=== PATIENT | female | born 1965 | race Caucasian/White ===

== ENCOUNTER 2017-11-20 20:15 | Inpatient (IN) | payer MEDICARE ==
[~2017-11-20] VITALS: Ht 162.6 cm; Wt 67.6 kg
[2017-11-20] VITALS (12 sets, daily range): BP systolic 111–148; BP diastolic 70–77; PULSE 60–99; RESP 18–22; TEMP 97.2–98.8; O2SAT 90–100
[~2017-11-20 20:15] MED LIST: KEPP1000 PO; LACO100 PO; LEVE500 PO; PHEN100 PO; PROZ40CA PO; TRAZ50TA4 PO
[2017-11-20] MEDS ORDERED: PROPOFOL 200 MG/20 ML AMP IV ONE ×3 (20:30→23:00)
[2017-11-20] MEDS ORDERED: LORazepam 2 MG/ML VIAL ONE (20:33)
[2017-11-20] MEDS ORDERED: KETAMINE HCL 500 MG/5 ML VIAL IV PUSH ONE (20:45)
[2017-11-20] MEDS ORDERED: LORazepam 2 MG/ML VIAL IV PUSH ONE (20:45)
--- NOTE | 2017-11-20 20:51 | RADRPT ---
EXAM DATE/TIME: 11/20/2017 20:38 [facility] COMPARISON: No previous studies available for comparison. INDICATIONS : Post intubation. MEDICAL HISTORY : Unobtainable SURGICAL HISTORY : Unobtainable ENCOUNTER: Initial ACUITY: 1 day PAIN SCORE: Non-responsive. LOCATION: Bilateral chest FINDINGS: Trace left base atelectasis. Lungs otherwise clear. No large effusion seen. No pneumothorax. Endotracheal tube tip is approximately 3.5 cm above the shelli. Nasogastric tube courses into the sto mach. Normal heart size. CONCLUSION: Appropriately positioned endotracheal tube and nasogastric tube. Trace left base atelectasis. Billy Slade MD on November 20, 2017 at 20:48 Board Certified Radiologist. This report was verified electronically.
[2017-11-20 21:20] LABS: AUTOMATED NEUTROPHIL # 7.3 TH/MM3 (1.8-7.7); BASOPHIL % 0.5 % (0.0-2.0); EOSINOPHIL # 0.1 TH/MM3 (0-0.4); EOSINOPHIL % 1.5 % (0.0-4.0); HEMOGLOBIN 14.4 GM/DL (11.6-15.3); LYMPH % 16.6 % (9.0-44.0); LYMPHOCYTE # 1.6 TH/MM3 (1.0-4.8); MEAN CELL VOLUME 85.8 FL (80.0-100.0); MEAN CORPUSCULAR HEMOGLOBIN 28.7 PG (27.0-34.0); MEAN CORPUSCULAR HGB CONC 33.5 % (32.0-36.0); MEAN PLATELET VOLUME 8.7 FL (7.0-11.0); MONO % 5.9 % (0.0-8.0); MONOCYTE # 0.6 TH/MM3 (0-0.9); NEUT % 75.5 % (16.0-70.0); PLATELET COUNT 278 TH/MM3 (150-450); RED BLOOD COUNT 5.01 MIL/MM3 (4.00-5.30); RED CELL DISTRIBUTION WIDTH 13.4 % (11.6-17.2); WHITE BLOOD COUNT 9.7 TH/MM3 (4.0-11.0)
[2017-11-20 21:29] LABS: AST (GOT) 21 U/L (15-37); BICARBONATE 20.4 MEQ/L (21.0-32.0); BLOOD UREA NITROGEN 21 MG/DL (7-18); CALCIUM 9.4 MG/DL (8.5-10.1); CHLORIDE 108 MEQ/L (98-107); GLOMERULAR FILTRATION RATE 58 ML/MIN (>89); GLUCOSE,RANDOM 89 MG/DL (74-106); SODIUM (NA) 141 MEQ/L (136-145)
[2017-11-20 21:30] LABS: ALT (GPT) 22 U/L (10-53)
[2017-11-20] MEDS: fentaNYL DRIP 250 ML IV PRN (21:33)
[2017-11-20 21:34] LABS: ALKALINE PHOSPHATASE 116 U/L (45-117); TOTAL BILIRUBIN ADULT 0.2 MG/DL (0.2-1.0); TOTAL PROTEIN 7.7 GM/DL (6.4-8.2); TROPONIN I LESS THAN 0.02 NG/ML (0.02-0.05)
[2017-11-20] MEDS ORDERED: PROPOFOL 500 MG/50 ML INJ 50 ML ONE (21:56)
[2017-11-20] MEDS: HEPARIN SODIUM - SQ 10,000 UNITS/ML VIAL SQ SCH (22:00)
--- NOTE | 2017-11-20 22:07 | PD ---
HPI Chief Complaint: Seizure Time Seen by Provider: 20:28 Travel History International Travel<30 days: No Contact w/Intl Traveler<30days: No Traveled to known affect area: No History of Present Illness HPI Patient is a 52-year-old female with a MR diagnosis as well as seizure apparently she has had nonstop seizures paramedics found her to be in repeated facial spasm and arm twitching which is her focal seizure like presentation she is given 2 of Versed en route did not break her seizure she is given 2 more en route and then they called for a second dose of Versed and then a third she arrives she is sedated but yet still having facial twitching and arm twitching. She is still seizing and I set up to intubate him prone a propofol drip to relax her mind from discharging she is unable to give an history of present illness or ROS due to being in sedated and MR and actively seizing PFSH Past Medical History ?: Not Social History Tobacco Use: No Allergies-Medications (Allergen,Severity, Reaction): Coded Allergies: Unable to Assess (Verified Allergy, Unknown, 11/20/17) Reported Meds & Prescriptions Reported Meds & Active Scripts Active Reported Vimpat (Lacosamide) 200 Mg Tab 200 Mg PO BID Trazodone (Trazodone HCl) 50 Mg Tab 50 Mg PO HS Keppra (Levetiracetam) 500 Mg Tab 1,500 Mg HS Keppra (Levetiracetam) 500 Mg Tab 500 Mg BID Prozac (Fluoxetine HCl) 40 Mg Cap 40 Mg PO DAILY Review of Systems ROS Limitations: Altered Mental Status, Speech Impaired, Other: (patient is been sedated en route as well as actively seizing focal) Except as stated in HPI: all other systems reviewed are Neg Neurologic: Positive: Seizures Physical Exam Narrative GENERAL: Patient has 100% nonrebreather on her face and she is facial twitching lipsmacking seizure-like activity as well as her right arm is in a tonic-clonic activity SKIN: Warm and dry. HEAD: Atraumatic. Normocephalic. EYES: Pupils equal and round. No scleral icterus. No injection or drainage. ENT: No nasal bleeding or discharge. Mucous membranes pink and moist. NECK: Trachea midline. No JVD. CARDIOVASCULAR: Regular rate and rhythm. Slightly tachycardic at 112 RESPIRATORY: No accessory muscle use. Clear to auscultation. Breath sounds equal bilaterally. GASTROINTESTINAL: Abdomen soft, non-tender, nondistended. Hepatic and splenic margins not palpable. MUSCULOSKELETAL: Extremities without clubbing, cyanosis, or edema. No obvious deformities. NEUROLOGICAL: Patient is sedated and still having focal discharge facial smacking muscles lipsmacking and her right arm is tonic-clonic activity is not open her eyes to command appears to be actively continuing to seize in spite of Versed focal seizures Psychological patient is obtunded most likely due to sedation as well as actively focal season Data Data Last Documented VS Orders Orders Propofol 200 Mg/20 Ml Inj (Diprivan 200 (11/20/17 20:30) Electrocardiogram (11/20/17 20:28) Complete Blood Count With Diff (11/20/17 20:28) Comprehensive Metabolic Panel (11/20/17 20:28) Troponin I (11/20/17 20:28) Lipase (11/20/17 20:28) Urinalysis - C+S If Indicated (11/20/17 20:28) Chest, Single Ap (11/20/17 20:28) Type And Screen (11/20/17 20:28) Drug Screen, Random Urine (11/20/17 20:28) Alcohol (Ethanol) (11/20/17 20:28) Lorazepam Inj (Ativan Inj) (11/20/17 20:33) Lorazepam Inj (Ativan Inj) (11/20/17 20:45) Ketamine Inj (Ketalar Inj) (11/20/17 20:45) Fentanyl Inj (Fentanyl Inj) (11/20/17 20:45) Resp Ventilation- Pressure (11/20/17 ) Lactic Acid (11/20/17 20:47) Urinary Catheter Management BOLIVAR.Q8H (11/20/17 20:47) Blood Culture (11/20/17 20:47) Fentanyl Drip (Fentanyl Drip) (11/20/17 21:15) Admit Order (Ed Use Only) (11/20/17 21:38) Magnesium (Mg) (11/20/17 20:25) Phosphorus (Po4) (11/20/17 20:25) Labs Laboratory Tests Test 11/20/17 20:25 11/20/17 20:40 White Blood Count 9.7 TH/MM3 Red Blood Count 5.01 MIL/MM3 Hemoglobin 14.4 GM/DL Hematocrit 43.0 % Mean Corpuscular Volume 85.8 FL Mean Corpuscular Hemoglobin 28.7 PG Mean Corpuscular Hemoglobin Concent 33.5 % Red Cell Distribution Width 13.4 % Platelet Count 278 TH/MM3 Mean Platelet Volume 8.7 FL Neutrophils (%) (Auto) 75.5 % Lymphocytes (%) (Auto) 16.6 % Monocytes (%) (Auto) 5.9 % Eosinophils (%) (Auto) 1.5 % Basophils (%) (Auto) 0.5 % Neutrophils # (Auto) 7.3 TH/MM3 Lymphocytes # (Auto) 1.6 TH/MM3 Monocytes # (Auto) 0.6 TH/MM3 Eosinophils # (Auto) 0.1 TH/MM3 Basophils # (Auto) 0.0 TH/MM3 CBC Comment DIFF FINAL Differential Comment Blood Urea Nitrogen 21 MG/DL Creatinine 1.00 MG/DL Random Glucose 89 MG/DL Total Protein 7.7 GM/DL Albumin 4.0 GM/DL Calcium Level 9.4 MG/DL Phosphorus Level 4.3 MG/DL Magnesium Level 2.7 MG/DL Alkaline Phosphatase 116 U/L Aspartate Amino Transf (AST/SGOT) 21 U/L Alanine Aminotransferase (ALT/SGPT) 22 U/L Total Bilirubin 0.2 MG/DL Sodium Level 141 MEQ/L Potassium Level 4.0 MEQ/L Chloride Level 108 MEQ/L Carbon Dioxide Level 20.4 MEQ/L Anion Gap 13 MEQ/L Estimat Glomerular Filtration Rate 58 ML/MIN Troponin I LESS THAN 0.02 NG/ML Lipase 131 U/L Ethyl Alcohol Level LESS THAN 3 MG/DL Lactic Acid Level 8.0 mmol/L [facility] Medical Decision Making Medical Screen Exam Complete: Yes Emergency Medical Condition: Yes Differential Diagnosis Patient had been given multiple doses of Versed in the field without breaking the seizures she starts to receive Zarontin arrival diagnosis is static epilepticus versus intermittent focal seizures recurrent versus direct light imbalance versus intoxication versus all the possible seizure risk factors Narrative Course After giving the patient a few moments I see she is seizing still facial tic and arm movement tonic-clonic I feel is necessary to make her brain stop having static epilepticus and so I intubate her with propofol bolus as well as succinylcholine and pass a ET tube without complications and put her on a propofol drip as well as a Versed drip reestablishing that she is no longer having any focal seizures and that her static epilepticus has been broken with the propofol and fentanyl and she is admitted to Dr. Sexton in the ICU Critical Care Narrative Critical care time is 30 minutes of breaking her seizures intubating her and getting her admitted on the appropriate medication drips to the ICU Procedures Procedure Narrative Procedure note is rapid sequence intubation I bolused the patient 50 mg of propofol for induction and then with succinylcholine 100 mg pushed for paralytic. I am able to easily pass an ET tube 7.5 I use direct visualization through the cords without complication patient is placed 100% FiO2 on the ventilator direct visualization confirmed tube placement x-rays done patient is admitted to the ICU Diagnosis Primary Impression: Status epilepticus Admitting Information Admitting Physician Requests: Chan Paulson MD Nov 20, 2017 22:07
[2017-11-20] MEDS ORDERED: SODIUM CHLOR 0.9% 1000 ML INJ 1,000 ML IV ONE (22:15)
[2017-11-20] MEDS ORDERED: ONDANSETRON HCL 4 MG/2 ML VIAL IV PUSH PRN (22:15)
[2017-11-20] MEDS ORDERED: LORazepam 2 MG/ML VIAL IV PUSH PRN (22:15)
[2017-11-20] MEDS ORDERED: MAGNESIUM HYDROXIDE SUSP 30 ML CUP PO PRN (22:15)
[2017-11-20] MEDS ORDERED: LACTULOSE SYRUP 20 GM/30 ML CUP PO PRN (22:15)
[2017-11-20] MEDS ORDERED: ACETAMINOPHEN 325 MG TAB PO PRN (22:15)
[2017-11-20] MEDS ORDERED: BISACODYL 10 MG SUPP RECTAL PRN (22:15)
[2017-11-20] MEDS ORDERED: MISCELLANEOUS NURSING INFORMATION XX SCH (22:15)
[2017-11-20] MEDS ORDERED: SODIUM CHLORIDE 0.9% FLUSH 10 ML FLUSH IV FLUSH PRN (22:15)
[2017-11-20] MEDS ORDERED: SENNOSIDES 8.6 MG TAB PO PRN (22:15)
[2017-11-20] MEDS ORDERED: CHLORHEXIDINE GLUCONATE 2 % 1 PACK (2 CLOTHS) TOP PRN (22:15)
--- NOTE | 2017-11-20 22:19 | HHI.HP ---
HPI Service Critical Care Medicine Primary Care Physician Unknown Admission Diagnosis status epilepticus Diagnosis: Travel History International Travel<30 Days: No Contact w/Intl Traveler <30 Da: No Traveled to Known Affected Are: No History of Present Illness 52-year-old female with a diagnosis of MR as well as seizure apparently she was not taking her seizure medications and started seizing. Per paramedics report she had nonstop seizures such as repeated facial spasm and arm twitching which is her focal seizure like presentation. She was given 2 of Versed en route did not break her seizure and was given 2 more en route and then they called for a second dose of Versed and then a third. She arrived to emergency department sedated but yet still having facial twitching and arm twitching and was intubated by ED attending for an airway protection. Review of Systems ROS Unobtainable patient sedated and intubated Past Family Social History Allergies: Coded Allergies: Unable to Assess (Verified Allergy, Unknown, 11/20/17) Past Medical History Mental retardation Seizure disorder Past Surgical History Unobtainable Reported Medications Reported Meds & Active Scripts Active Reported Vimpat (Lacosamide) 200 Mg Tab 200 Mg PO BID Trazodone (Trazodone HCl) 50 Mg Tab 50 Mg PO HS Keppra (Levetiracetam) 500 Mg Tab 1,500 Mg HS Keppra (Levetiracetam) 500 Mg Tab 500 Mg BID Prozac (Fluoxetine HCl) 40 Mg Cap 40 Mg PO DAILY Active Ordered Medications Current Medications Medications (Trade) Dose Ordered Sig/Mayi Route PRN Reason Start Time Stop Time Status Last Admin Dose Admin Fentanyl Citrate 250 ml @ 5 mls/hr TITRATE PRN IV SEDATION 11/20/17 21:15 11/20/17 21:33 Sodium Chloride 1,000 ml @ 184 mls/hr [id number] IV 11/20/17 22:15 11/21/17 00:22 Sodium Chloride (NS Flush) 2 ml UNSCH PRN IV FLUSH FLUSH AFTER USING IV ACCESS 11/20/17 22:15 Sodium Chloride (NS Flush) 2 ml BID IV FLUSH 11/21/17 09:00 Acetaminophen (Tylenol) 650 mg Q6H PRN PO PAIN 1-10 AND/OR FEVER >101F 11/20/17 22:15 Famotidine (Pepcid Inj) 20 mg Q12HR IV PUSH 2/9/18 09:00 Lorazepam (Ativan Inj) 1 mg Q1H PRN IV PUSH seizure 11/20/17 22:15 Ondansetron HCl (Zofran Inj) 4 mg Q6H PRN IV PUSH NAUSEA OR VOMITING 11/20/17 22:15 Heparin Sodium (Porcine) (Heparin Inj) 5,000 units Q8H SQ 11/20/17 22:00 Miscellaneous Information 1 [id number] XX 11/20/17 22:15 Chlorhexidine Gluconate (Chlorhexidine 2% Cloth) 3 pack Taper DAILY@04 TOP 11/21/17 04:00 11/17/18 03:59 11/21/17 00:23 Chlorhexidine Gluconate (Chlorhexidine 2% Cloth) 3 pack UNSCH PRN TOP HYGIENIC CARE 11/20/17 22:15 Senna/Docusate Sodium (Farnaz-Colace) 1 tab BID PO 11/21/17 09:00 Magnesium Hydroxide (Milk Of Magnesia Liq) 30 ml Q12H PRN PO Mild constipation 11/20/17 22:15 Sennosides (Senokot) 17.2 mg Q12H PRN PO Moderate constipation 11/20/17 22:15 Bisacodyl (Dulcolax Supp) 10 mg DAILY PRN RECTAL SEVERE CONSITIPATION 11/20/17 22:15 Lactulose (Lactulose Liq) 30 ml DAILY PRN PO SEVERE CONSITIPATION 11/20/17 22:15 Levetriacetam 100 ml @ 400 mls/hr Q12H IV 11/20/17 23:00 11/21/17 00:22 Potassium Chloride 100 ml @ 50 mls/hr Q2H PRN IV For Potassium 2.8 - 3.2 mEq/L 11/20/17 22:30 Potassium Chloride 100 ml @ 50 mls/hr Q2H PRN IV For Potassium 2.8 - 3.2 mEq/L 11/20/17 22:30 Potassium Bicarb/ Potassium Chloride (K-Lyte Cl Eff) 50 meq UNSCH PRN PO For Potassium 3.3 - 3.5 mEq/L 11/20/17 22:30 Potassium Chloride 100 ml @ 25 mls/hr UNSCH PRN IV For Potassium 3.3 - 3.5 mEq/L 11/20/17 22:30 Potassium Chloride 100 ml @ 50 mls/hr Q2H PRN IV For Potassium 3.3 - 3.5 mEq/L 11/20/17 22:30 Magnesium Sulfate 4 gm/Sodium Chloride 100 ml @ 50 mls/hr UNSCH PRN IV For Magnesium 0.9 - 1.1 mg/dL 11/20/17 22:30 Magnesium Oxide (Mag-Ox) 800 mg UNSCH PRN PO For Magnesium 1.2 - 1.6 mg/dL 11/20/17 22:30 Magnesium Sulfate 2 gm/Sodium Chloride 100 ml @ 50 mls/hr UNSCH PRN IV For Magnesium 1.2 - 1.6 mg/dL 11/20/17 22:30 Potassium Phosphate (K-Phos) 2,000 mg Q4H PRN PO For Phosphorus < 2.5 mg/dL 11/20/17 22:30 Sodium Phosphate 30 mmol/Sodium Chloride 250 ml @ 42 mls/hr UNSCH PRN IV For Phosphorus < 2.5 mg/dL 11/20/17 22:30 Potassium Phosphate (K-Phos) 2,000 mg UNSCH PRN PO/TUBE SEE LABEL COMMENTS 11/20/17 22:30 Potassium Phosphate 30 mmol/ Sodium Chloride 260 ml @ 42 mls/hr UNSCH PRN IV SEE LABEL COMMENTS 11/20/17 22:30 Chlorhexidine Gluconate (Peridex 0.12% Liq) 15 ml BID@08,20 MT 11/21/17 08:00 Propofol 100 ml @ 2.01 mls/hr TITRATE PRN IV SEDATION 11/20/17 22:30 Family History Unobtainable Social History Unobtainable Physical Exam Vital Signs Vital Signs Date Time Temp Pulse Resp B/P (MAP) Pulse Ox O2 Delivery O2 Flow Rate FiO2 11/20/17 22:04 76 18 124/74 (91) 98 Ventilator 100 11/20/17 21:40 97.2 80 18 111/74 (86) Ventilator 11/20/17 21:07 88 18 116/77 (90) 98 Ventilator 100 11/20/17 20:49 98 22 120/70 (87) 98 Ventilator 100 11/20/17 20:31 20 96 Ventilator 11/20/17 20:25 97 100 11/20/17 20:24 100 11/20/17 20:19 99 18 111/75 (87) 90 Physical Exam GENERAL: Elderly appearing woman sedated and intubated SKIN: Warm and dry. HEAD: Normocephalic. EYES: No scleral icterus. No injection or drainage. NECK: Supple, trachea midline. No JVD or lymphadenopathy. CARDIOVASCULAR: Regular rate and rhythm without murmurs, gallops, or rubs. RESPIRATORY: Breath sounds equal bilaterally. No accessory muscle use. GASTROINTESTINAL: Abdomen soft, non-tender, nondistended. MUSCULOSKELETAL: No cyanosis, or edema. BACK: Nontender without obvious deformity. NEURO EXAM: Patient is sedated and intubated not following commands localizes in all 4 extremities. Laboratory Laboratory Tests Test 11/20/17 20:25 11/20/17 20:40 11/20/17 21:45 White Blood Count 9.7 Red Blood Count 5.01 Hemoglobin 14.4 Hematocrit 43.0 Mean Corpuscular Volume 85.8 Mean Corpuscular Hemoglobin 28.7 Mean Corpuscular Hemoglobin Concent 33.5 Red Cell Distribution Width 13.4 Platelet Count 278 Mean Platelet Volume 8.7 Neutrophils (%) (Auto) 75.5 Lymphocytes (%) (Auto) 16.6 Monocytes (%) (Auto) 5.9 Eosinophils (%) (Auto) 1.5 Basophils (%) (Auto) 0.5 Neutrophils # (Auto) 7.3 Lymphocytes # (Auto) 1.6 Monocytes # (Auto) 0.6 Eosinophils # (Auto) 0.1 Basophils # (Auto) 0.0 CBC Comment DIFF FINAL Differential Comment Blood Urea Nitrogen 21 Creatinine 1.00 Random Glucose 89 Total Protein 7.7 Albumin 4.0 Calcium Level 9.4 Alkaline Phosphatase 116 Aspartate Amino Transf (AST/SGOT) 21 Alanine Aminotransferase (ALT/SGPT) 22 Total Bilirubin 0.2 Sodium Level 141 Potassium Level 4.0 Chloride Level 108 Carbon Dioxide Level 20.4 Anion Gap 13 Estimat Glomerular Filtration Rate 58 Troponin I LESS THAN 0.02 Lipase 131 Ethyl Alcohol Level LESS THAN 3 Lactic Acid Level 8.0 Date/Time Source Procedure Growth Status 11/20/17 20:40 Blood Peripheral Aerobic Blood Culture Pending Received 11/20/17 20:40 Blood Peripheral Anaerobic Blood Culture Pending Received Result Diagram: 11/20/17202411/20/172024 Imaging Last 24 hours Impressions Chest X-Ray 2/8/18 2028 Signed Impressions: Service Date/Time: November 20:38 - CONCLUSION: Appropriately positioned endotracheal tube and nasogastric tube. Trace left base atelectasis. Billy Slade MD Septic Shock Reassessment Septic shock perfusion: reassessment completed Caprini VTE Risk Assessment Caprini VTE Risk Assessment: Mod/High Risk (score >= 2) Caprini Risk Assessment Model Point Value = 1 Point Value = 2 Point Value = 3 Point Value = 5 Age 41-60 Minor surgery BMI > 25 kg/m2 Swollen legs Varicose veins or History of unexplained or recurrent spontaneous Oral contraceptives or hormone replacement Sepsis (< 1 month) Serious lung disease, including pneumonia (< 1 month) Abnormal pulmonary function Acute myocardial infarction Congestive heart failure (< 1 month) History of inflammatory bowel disease Medical patient at bed rest Age 61-74 Arthroscopic surgery Major open surgery (> 45 min) Laparoscopic surgery (> 45 min) Malignancy Confined to bed (> 72 hours) Immobilizing plaster cast Central venous access Age >= 75 History of VTE Family history of VTE Factor V Leiden Prothrombin [id number] Lupus anticoagulant Anticardiolipin antibodies Elevated serum homocysteine Heparin-induced thrombocytopenia Other congenital or acquired thrombophilia Stroke (< 1 month) Elective arthroplasty Hip, pelvis, or leg fracture Acute spinal cord injury (< 1 month) Prophylaxis Regimen Total Risk Factor Score Risk Level Prophylaxis Regimen 0-1 Low Early ambulation 2 Moderate Order ONE of the following: *Sequential Compression Device (SCD) *Heparin 5000 units SQ BID 3-4 Higher Order ONE of the following medications: *Heparin 5000 units SQ TID *Enoxaparin/Lovenox 40 mg SQ daily (WT < 150 kg, CrCl > 30 mL/min) *Enoxaparin/Lovenox 30 mg SQ daily (WT < 150 kg, CrCl > 10-29 mL/min) *Enoxaparin/Lovenox 30 mg SQ BID (WT < 150 kg, CrCl > 30 mL/min) AND/OR *Sequential Compression Device (SCD) 5 or more Highest Order ONE of the following medications: *Heparin 5000 units SQ TID (Preferred with Epidurals) *Enoxaparin/Lovenox 40 mg SQ daily (WT < 150 kg, CrCl > 30 mL/min) *Enoxaparin/Lovenox 30 mg SQ daily (WT < 150 kg, CrCl > 10-29 mL/min) *Enoxaparin/Lovenox 30 mg SQ BID (WT < 150 kg, CrCl > 30 mL/min) AND *Sequential Compression Device (SCD) Assessment and Plan Assessment and Plan Respiratory failure - Intubated for an airway protection - Vent bundle - DuoNeb's when necessary - SBT and wean when neurologically improved and seizure-free Seizure disorder - Loaded with fosphenytoin in the ED - Keppra - Vimpat - EEG - Supportive care Lactic acidosis - Due to convulsive status - IV hydration - Monitor trend DVT GI prophylaxis - Teds SCDs - Subcutaneous heparin - Pepcid Critical Care: The total critical care time was 35 minutes. Time to perform other separately billable procedures was not included in the critical care time. Rashawn Sexton MD Nov 20, 2017 22:19
[2017-11-20 22:20] LABS: AMORPHOUS SEDIMENT, URINE RARE; BACTERIA, URINE MOD /hpf; BILIRUBIN, URINE NEG (NEG); BLOOD, URINE NEG (NEG); GLUCOSE,URINE NEG (NEG); HYALINE CAST, URINE 19 /lpf (RARE); KETONE, URINE TRACE mg/dL (NEG); MUCUS URINE FEW /lpf (OCC); NITRITE,URINE NEG (NEG); PH, URINE 5.5 (5.0-8.5); SQUAMOUS EPITHELIAL CELL URINE <1 /hpf (0-5); URINE COLOR YELLOW (YELLW/STRAW); URINE LEUKOCYTE ESTERASE NEG (NEG)
[2017-11-20 22:23] LABS: MAGNESIUM 2.7 MG/DL (1.5-2.5); PHOSPHORUS 4.3 MG/DL (2.5-4.9)
[2017-11-20] MEDS ORDERED: POTASSIUM PHOSPHATE INJ 30 MMOL in SODIUM CHLOR 0.9% 250 ML INJ 250 ML IV PRN (22:30)
[2017-11-20] MEDS ORDERED: POTASSIUM CHLORIDE 25 MEQ EFFERVESCENT TAB PO PRN (22:30)
[2017-11-20] MEDS ORDERED: MAGNESIUM SULFATE INJ 4 GM in SODIUM CHLORIDE 0.9% INJ 92 ML IV PRN (22:30)
[2017-11-20] MEDS ORDERED: FOSPHENYTOIN INJ 1,000 MGPE in SODIUM CHLORIDE 0.9% INJ 50 ML IV ONE (22:30)
[2017-11-20] MEDS ORDERED: MAGNESIUM SULFATE INJ 2 GM in SODIUM CHLORIDE 0.9% INJ 96 ML IV PRN (22:30)
[2017-11-20] MEDS ORDERED: SODIUM PHOSPHATE INJ 30 MMOL in SODIUM CHLOR 0.9% 250 ML INJ 240 ML IV PRN (22:30)
[2017-11-20] MEDS ORDERED: POTASSIUM CHLOR 40 MEQ PREMIX 100 ML IV PRN ×2 (22:30)
[2017-11-20] MEDS ORDERED: MAGNESIUM OXIDE 400 MG TAB PO PRN (22:30)
[2017-11-20] MEDS ORDERED: POTASSIUM PHOSPHATE MONOBASIC 500 MG TAB PO/TUBE PRN (22:30)
[2017-11-20] MEDS ORDERED: POTASSIUM PHOSPHATE MONOBASIC 500 MG TAB PO PRN (22:30)
[2017-11-20] MEDS ORDERED: POTASSIUM CHLOR 20 MEQ PREMIX 100 ML IV PRN (22:30)
[2017-11-20] MEDS ORDERED: PROZ40CA PO (22:33)
[2017-11-20] MEDS ORDERED: VIMP200T PO (22:33)
[2017-11-20] MEDS ORDERED: TRAZ50TA12 PO (22:33)
[2017-11-20] MEDS ORDERED: LEVE500 ×2 (22:33)
[2017-11-20] MEDS ORDERED: SUCCINYLCHOLINE CHLORIDE 100 MG/5 ML SYRINGE IV PUSH ONE (23:00)
[2017-11-21] VITALS (52 sets, daily range): BP systolic 86–160; BP diastolic 51–87; PULSE 45–67; RESP 14–32; TEMP 98.1–99; O2SAT 93–100
[2017-11-21] MEDS: SODIUM CHLOR 0.9% 1000 ML INJ 1,000 ML IV SCH ×4 (00:22→22:08)
[2017-11-21] MEDS: levETIRAcetam INJ 100 ML IV SCH ×3 (00:22→21:43)
[2017-11-21] MEDS: CHLORHEXIDINE GLUCONATE 2 % 1 PACK (2 CLOTHS) TOP SCH (00:23)
[2017-11-21] MEDS: LACOSAMIDE INJ 150 MG in SODIUM CHLORIDE 0.9% INJ 100 ML IV SCH ×2 (02:52→15:35)
[2017-11-21] MEDS: PROPOFOL 1000 MG/100 ML INJ 100 ML IV PRN ×3 (05:14→22:09)
[2017-11-21] MEDS: HEPARIN SODIUM - SQ 10,000 UNITS/ML VIAL SQ SCH ×3 (05:17→21:43)
--- NOTE | 2017-11-21 05:22 | RADRPT ---
EXAM DATE/TIME: 11/21/2017 03:59 [facility] COMPARISON: CHEST SINGLE AP, November 20, 2017, 20:38. INDICATIONS : Evaluate for pneumonia- Respiratory failure MEDICAL HISTORY : None. SURGICAL HISTORY : None. ENCOUNTER: Subsequent ACUITY: 2 days PAIN SCORE: Non-responsive. LOCATION: Bilateral chest FINDINGS: A single view of the chest demonstrates endotracheal tube in good position. NG tip in stomach. Minima l basilar atelectasis. No effusion. No pneumothorax. Heart size within normal limits. CONCLUSION: 1. Endotracheal tube and nasogastric tube in good position. Minimal basilar dependent atelectasis. Milton Mojica MD on November 21, 2017 at 5:19 Board Certified Radiologist. This report was verified electronically.
[2017-11-21 05:44] LABS: AUTOMATED NEUTROPHIL # 8.4 TH/MM3 (1.8-7.7); BASOPHIL % 0.3 % (0.0-2.0); HEMATOCRIT 35.7 % (35.0-46.0); LYMPH % 8.7 % (9.0-44.0); LYMPHOCYTE # 0.9 TH/MM3 (1.0-4.8); MEAN CELL VOLUME 85.4 FL (80.0-100.0); MEAN CORPUSCULAR HEMOGLOBIN 28.8 PG (27.0-34.0); MEAN CORPUSCULAR HGB CONC 33.7 % (32.0-36.0); MEAN PLATELET VOLUME 8.1 FL (7.0-11.0); MONO % 8.9 % (0.0-8.0); MONOCYTE # 0.9 TH/MM3 (0-0.9); NEUT % 82.1 % (16.0-70.0); PLATELET COUNT 187 TH/MM3 (150-450); RED BLOOD COUNT 4.18 MIL/MM3 (4.00-5.30); RED CELL DISTRIBUTION WIDTH 13.4 % (11.6-17.2); WHITE BLOOD COUNT 10.3 TH/MM3 (4.0-11.0)
[2017-11-21 05:54] LABS: INTERNATIONAL NORMALIZED RATIO 1.1 RATIO; PROTHROMBIN TIME - PATIENT 10.7 SEC (9.8-11.6)
[2017-11-21 06:13] LABS: ALBUMIN 2.5 GM/DL (3.4-5.0); BICARBONATE 20.8 MEQ/L (21.0-32.0); CALCIUM 6.3 MG/DL (8.5-10.1); CALCIUM-PROTEIN CORRECTED 7.5 MG/DL (8.5-10.1); CREATININE 0.43 MG/DL (0.50-1.00); MAGNESIUM 1.9 MG/DL (1.5-2.5); PHOSPHORUS 2.4 MG/DL (2.5-4.9); TOTAL BILIRUBIN ADULT 0.3 MG/DL (0.2-1.0); TOTAL PROTEIN 4.6 GM/DL (6.4-8.2)
[2017-11-21] MEDS: DOCUSATE SODIUM 50 MG/SENNA 8.6 MG TAB PO SCH ×2 (08:00→19:18)
[2017-11-21] MEDS: POTASSIUM CHLOR 20 MEQ PREMIX 100 ML IV PRN ×4 (08:00→19:18)
[2017-11-21] MEDS: SODIUM CHLORIDE 0.9% FLUSH 10 ML FLUSH IV FLUSH SCH ×2 (08:01→19:18)
[2017-11-21] MEDS: FAMOTIDINE 20 MG/2 ML VIAL IV PUSH SCH ×2 (08:01→19:18)
[2017-11-21] MEDS: CHLORHEXIDINE 0.12% (ORAL KIT) 15 ML CUP MT SCH ×2 (08:01→19:17)
[2017-11-21] MEDS ORDERED: GLUCAGON 1 MG/ML VIAL OTHER PRN (10:30)
[2017-11-21] MEDS ORDERED: DEXTROSE 50% IN WATER 50 ML VIAL(D50) IV PUSH PRN (10:30)
[2017-11-21] MEDS: INSULIN NovoLIN REGULAR SUPPLEMENTAL SCALE SQ SCH ×5 (10:30→23:50)
--- NOTE | 2017-11-21 10:39 | HHI.CCPN ---
Subjective Remarks/Hospital Course 52-year-old female with a diagnosis of MR as well as seizure apparently she was not taking her seizure medications and started seizing. Per paramedics report she had nonstop seizures such as repeated facial spasm and arm twitching which is her focal seizure like presentation. She was given 2 of Versed en route did not break her seizure and was given 2 more en route and then they called for a second dose of Versed and then a third. She arrived to emergency department sedated but yet still having facial twitching and arm twitching and was intubated by ED attending for an airway protection. 11/21 Patient remains intubated and sedated with Fentanyl. Afebrile. Objective Vital Signs Date Time Temp Pulse Resp B/P (MAP) Pulse Ox O2 Delivery O2 Flow Rate FiO2 11/21/17 10:00 58 11/21/17 09:45 21 160/82 (108) 93 11/21/17 08:06 30 11/21/17 08:00 98.3 11/20/17 22:35 Ventilator Intake and Output 11/21/17 11/21/17 11/22/17 08:00 16:00 00:00 Intake Total 1215 ml Output Total 400 ml Balance 815 ml Result Diagram: 11/21/17 0530 11/21/17 0530 Other Results Laboratory Tests Test 11/20/17 20:25 11/20/17 20:40 11/20/17 21:45 11/20/17 23:30 White Blood Count 9.7 TH/MM3 Red Blood Count 5.01 MIL/MM3 Hemoglobin 14.4 GM/DL Hematocrit 43.0 % Mean Corpuscular Volume 85.8 FL Mean Corpuscular Hemoglobin 28.7 PG Mean Corpuscular Hemoglobin Concent 33.5 % Red Cell Distribution Width 13.4 % Platelet Count 278 TH/MM3 Mean Platelet Volume 8.7 FL Neutrophils (%) (Auto) 75.5 % Lymphocytes (%) (Auto) 16.6 % Monocytes (%) (Auto) 5.9 % Eosinophils (%) (Auto) 1.5 % Basophils (%) (Auto) 0.5 % Neutrophils # (Auto) 7.3 TH/MM3 Lymphocytes # (Auto) 1.6 TH/MM3 Monocytes # (Auto) 0.6 TH/MM3 Eosinophils # (Auto) 0.1 TH/MM3 Basophils # (Auto) 0.0 TH/MM3 CBC Comment DIFF FINAL Differential Comment Blood Urea Nitrogen 21 MG/DL Creatinine 1.00 MG/DL Random Glucose 89 MG/DL Total Protein 7.7 GM/DL Albumin 4.0 GM/DL Calcium Level 9.4 MG/DL Phosphorus Level 4.3 MG/DL Magnesium Level 2.7 MG/DL Alkaline Phosphatase 116 U/L Aspartate Amino Transf (AST/SGOT) 21 U/L Alanine Aminotransferase (ALT/SGPT) 22 U/L Total Bilirubin 0.2 MG/DL Sodium Level 141 MEQ/L Potassium Level 4.0 MEQ/L Chloride Level 108 MEQ/L Carbon Dioxide Level 20.4 MEQ/L Anion Gap 13 MEQ/L Estimat Glomerular Filtration Rate 58 ML/MIN Troponin I LESS THAN 0.02 NG/ML Lipase 131 U/L Ethyl Alcohol Level LESS THAN 3 MG/DL Lactic Acid Level 8.0 mmol/L Urine Color YELLOW Urine Turbidity HAZY Urine pH 5.5 Urine Specific [place] 1.024 Urine Protein 30 mg/dL Urine Glucose (UA) NEG mg/dL Urine Ketones TRACE mg/dL Urine Occult Blood NEG Urine Nitrite NEG Urine Bilirubin NEG Urine Urobilinogen LESS THAN 2.0 MG/DL Urine Leukocyte Esterase NEG Urine RBC 1 /hpf Urine WBC 2 /hpf Urine Squamous Epithelial Cells <1 /hpf Urine Amorphous Sediment RARE Urine Bacteria MOD /hpf Urine Hyaline Casts 19 /lpf Urine Mucus FEW /lpf Microscopic Urinalysis Comment CULTURE INDICATED Urine Opiates Screen NEG Urine Barbiturates Screen NEG Urine Amphetamines Screen NEG Urine Benzodiazepines Screen POS Urine Cocaine Screen NEG Urine Cannabinoids Screen NEG Nasal Screen MRSA (PCR) MRSA NOT DETECTED Test 11/20/17 23:35 11/21/17 04:50 11/21/17 05:30 Blood Gas Puncture Site LT RADIAL LT RADIAL Blood Gas Patient Temperature 98.6 98.6 Blood Gas HCO3 22 mmol/L 22 mmol/L Blood Gas Base Excess -2.0 mmol/L -1.6 mmol/L Blood Gas Oxygen Saturation 98 % 97 % Arterial Blood pH 7.42 7.47 Arterial Blood Partial Pressure CO2 34 mmHg 30 mmHg Arterial Blood Partial Pressure O2 353 mmHg 167 mmHg Arterial Blood Oxygen Content 19.4 Vol % 16.9 Vol % Arterial Blood Carboxyhemoglobin 0.2 % 0.4 % Arterial Blood Methemoglobin 1.6 % 1.6 % Blood Gas Hemoglobin 13.5 G/DL 12.2 G/DL Oxygen Delivery Device VENTILATOR VENTILATOR Blood Gas Ventilator Setting 16/500/IT1.0/5PEEP 14/500/IT1.0/5PEEP Blood Gas Inspired Oxygen 70 % 40 % White Blood Count 10.3 TH/MM3 Red Blood Count 4.18 MIL/MM3 Hemoglobin 12.0 GM/DL Hematocrit 35.7 % Mean Corpuscular Volume 85.4 FL Mean Corpuscular Hemoglobin 28.8 PG Mean Corpuscular Hemoglobin Concent 33.7 % Red Cell Distribution Width 13.4 % Platelet Count 187 TH/MM3 Mean Platelet Volume 8.1 FL Neutrophils (%) (Auto) 82.1 % Lymphocytes (%) (Auto) 8.7 % Monocytes (%) (Auto) 8.9 % Eosinophils (%) (Auto) 0.0 % Basophils (%) (Auto) 0.3 % Neutrophils # (Auto) 8.4 TH/MM3 Lymphocytes # (Auto) 0.9 TH/MM3 Monocytes # (Auto) 0.9 TH/MM3 Eosinophils # (Auto) 0.0 TH/MM3 Basophils # (Auto) 0.0 TH/MM3 CBC Comment DIFF FINAL Differential Comment Prothrombin Time 10.7 SEC Prothromb Time International Ratio 1.1 RATIO Activated Partial Thromboplast Time 23.9 SEC Blood Urea Nitrogen 16 MG/DL Creatinine 0.43 MG/DL Random Glucose 76 MG/DL Total Protein 4.6 GM/DL Albumin 2.5 GM/DL Calcium Level 6.3 MG/DL Phosphorus Level 2.4 MG/DL Magnesium Level 1.9 MG/DL Alkaline Phosphatase 74 U/L Aspartate Amino Transf (AST/SGOT) 24 U/L Alanine Aminotransferase (ALT/SGPT) 15 U/L Total Bilirubin 0.3 MG/DL Sodium Level 146 MEQ/L Potassium Level 3.2 MEQ/L Chloride Level 117 MEQ/L Carbon Dioxide Level 20.8 MEQ/L Anion Gap 8 MEQ/L Estimat Glomerular Filtration Rate 153 ML/MIN Lactic Acid Level 1.5 mmol/L Protein Corrected Calcium 7.5 MG/DL Imaging Last Impressions Chest X-Ray 11/21/17 0600 Signed Impressions: Service Date/Time: Tuesday, November 21, 2017 03:59 - CONCLUSION: 1. Endotracheal tube and nasogastric tube in good position. Minimal basilar dependent atelectasis. Milton Mojica MD Objective Remarks GENERAL: Elderly appearing woman sedated and intubated SKIN: Warm and dry. HEAD: Normocephalic. EYES: No scleral icterus. No injection or drainage. NECK: Supple, trachea midline. No JVD or lymphadenopathy. CARDIOVASCULAR: Regular rate and rhythm without murmurs, gallops, or rubs. RESPIRATORY: Breath sounds equal bilaterally. No accessory muscle use. GASTROINTESTINAL: Abdomen soft, non-tender, nondistended. MUSCULOSKELETAL: No cyanosis, or edema. BACK: Nontender without obvious deformity. NEURO EXAM: Patient is sedated and intubated A/P Assessment and Plan VDRF Seizure disorder Lactic acidemia- cleared, 2nd seizures Hypokalemia Plan Neuro: Continue with Fentanyl drip. Daily sedation vacation when appropriate Loaded with fosphenytoin in the ED Continue with Romelia Loya For EEG today. Check CT brain, consult neurology Pulm: Continue with vent support keep sat >92% Bronchodilators, ICU vent bundle. CV: Monitor HR and BP keep MAP>65mmHg Lactic acid cleared 1.5 today from 8.0 : Monitor renal function, electrolytes replacement per protocol. Decrease IVF NS@75ml/hr GI: Start tube feeds- Glucerna 1.5 with goal rate 60ml/hr On Pepcid for GI prophylaxis ID: Monitor for signs of infections ( fever, WBC) Endo: SSI for glycemic control Heme: Monitor CBC DVT GI prophylaxis - Teds SCDs - Subcutaneous heparin - Pepcid level 3 Marcela Brown MD Nov 21, 2017 10:39
--- NOTE | 2017-11-21 12:12 | MB ---
cc: MASHA PAT M.D. DATE OF CONSULTATION: 11/21/2017 DATE OF : 1965, 52 years old. REASON FOR CONSULTATION: Seizure HISTORY OF PRESENT ILLNESS: A 52-year-old woman with diagnosis of Mitral regurgitation as well as epilepsy lives with her mother. There are some compliance issues. Her mother states with her either forgetting to take sometimes her antiepileptic medicine. Apparently yesterday evening she went to watch some TV in her room and her mother heard a noise and found her having a seizure. She called 911 and the paramedics gave her some Versed to break the seizure, brought her in intubated her. She is currently intubated on fentanyl but lightly sedated, opens her eyes and follows commands. She has a past medical history as stated. ALLERGIES None listed HOME MEDICATIONS: Vimpat 200 mg b.i.d. Trazodone 50 mg at bedtime Keppra 500 mg twice a day Keppra 1500 mg at night time Prozac 40 mg daily PHYSICAL EXAMINATION: VITAL SIGNS: Temperature 98.3, pulse 16 the respiratory rate 21, but does show 160/982 satting at 100% and lives at 30%. IN GENERAL: She is awake and alert. She follows commands. HEAD, EYES, EARS, NOSE, AND THROAT: Pupils reactive. Face is symmetrical. NEUROLOGIC: She squeezes both my hands with her hands with altered toes. DTRs are 1+. Toes are downgoing. Gait, cerebellar cannot be assessed LABORATORY FINDIGNS: Labs are reviewed. IMAGING STUDIES Chest x-ray some minimal dependent atelectasis but not nothing acute. IMPRESSION A 62-year-old woman with a history of epilepsy possible noncompliance to medicine. I would recommend placing her on the medicine Glucosamine because my 200 mg twice a day that can be switched to p.o. once extubated. To continue her Keppra but I did discuss with the mother instead of three times per day dosing she can get 1000 mg in the morning and 1500 mg at bedtime. Her mother will be responsible for administering the medicine and watching for compliance. She is the patient of my partner's Dr. Lam'shakeel and she can follow up with him in the office. A EEG has been done and will be read. Further recommendations will be made if needed but anticipate extubating her hopefully today and possibly discharging tomorrow. She is stable. Continue to monitor for any seizures. MD CINTHYA Stafford/cristian /11:46 AM /11:56 AM
[2017-11-21] MEDS: fentaNYL DRIP 250 ML IV PRN (13:17)
--- NOTE | 2017-11-21 14:33 | EKG ---
Date Performed: 11/20/2017 Time Performed: 20:30:26 PTAGE: 52 years EKG: SINUS TACHYCARDIA BORDERLINE RIGHT AXIS DEVIATION INCOMPLETE RIGHT BUNDLE BRANCH BLOCK ABNO RMAL RHYTHM ECG NO PREVIOUS TRACING DOCTOR: Janelle Spaulding Interpretating Date/Time 11/21/2017 14:28:18
--- NOTE | 2017-11-21 14:56 | RADRPT ---
EXAM DATE/TIME: 11/21/2017 14:46 [facility] COMPARISON: No previous studies available for comparison. INDICATIONS : Head pain due to eight seizure yesterday. RADIATION DOSE: 56.35 CTDIvol (mGy) MEDICAL HISTORY : Seizures. SURGICAL HISTORY : Vented. ENCOUNTER: Initial ACUITY: 2 days PAIN SCALE: Non-responsive LOCATION: Bilateral cranial TECHNIQUE: Multiple contiguous axial images were obtained of the head. Using automated exposure control and adj ustment of the mA and/or kV according to patient size, radiation dose was kept as low as reasonably a chievable to obtain optimal diagnostic quality images. DICOM format image data is available electro nically for review and comparison. FINDINGS: CEREBRUM: The ventricles are normal for age. No evidence of midline shift, mass lesion, hemorrhage or acute in farction. No extra-axial fluid collections are seen. POSTERIOR FOSSA: The cerebellum and brainstem are intact. The 4th ventricle is midline. The cerebellopontine angle i s unremarkable. EXTRACRANIAL: The visualized portion of the orbits is intact. SKULL: The calvaria is intact. No evidence of skull fracture. CONCLUSION: Negative for acute process. Hosea Scott MD FACR on November 21, 2017 at 14:54 Board Certified Radiologist. This report was verified electronically.
--- NOTE | 2017-11-21 21:48 | MG ---
cc: MASHA PAT M.D. Lab No: [id number] Date: Age: 52 Sex: F Race: REFERRING: Darshan. ROOM: 523. Intubated and sedated with some Diprivan and Fentanyl. Sitting up and following commands, answering questions. History of seizures on Keppra and other medications as listed propofol and Fentanyl. DESCRIPTION OF THE RECORD: The patient had an overall 6 to 7 perhaps 8 hertz background rhythm, 20 to 40 microvolts. There is some minor muscle artifact. EKG is artifactual in this recording and cannot be interpreted. No epileptiform features are noted. Photic stimulation does elicit a driving response. IMPRESSION: Very mild slowing to normal activity in this one recording. No epileptiform features. Clinical correlation. MD CINTHYA Stafford/MONICA /7:55 PM /9:26 PM
[2017-11-22] VITALS (16 sets, daily range): BP systolic 110–145; BP diastolic 56–99; PULSE 51–106; RESP 14–33; TEMP 98.1–99; O2SAT 86–100
[2017-11-22] MEDS: LACOSAMIDE INJ 150 MG in SODIUM CHLORIDE 0.9% INJ 100 ML IV SCH ×2 (01:43→18:24)
[2017-11-22] MEDS: CHLORHEXIDINE GLUCONATE 2 % 1 PACK (2 CLOTHS) TOP SCH (01:44)
[2017-11-22] MEDS: INSULIN NovoLIN REGULAR SUPPLEMENTAL SCALE SQ SCH ×6 (04:00→23:01)
[2017-11-22] MEDS: HEPARIN SODIUM - SQ 10,000 UNITS/ML VIAL SQ SCH ×3 (04:55→20:30)
[2017-11-22 05:40] LABS: AUTOMATED NEUTROPHIL # 11.9 TH/MM3 (1.8-7.7); BASOPHIL % 0.3 % (0.0-2.0); EOSINOPHIL # 0.1 TH/MM3 (0-0.4); EOSINOPHIL % 0.4 % (0.0-4.0); HEMATOCRIT 37.7 % (35.0-46.0); LYMPH % 6.1 % (9.0-44.0); LYMPHOCYTE # 0.9 TH/MM3 (1.0-4.8); MEAN CELL VOLUME 84.9 FL (80.0-100.0); MEAN CORPUSCULAR HEMOGLOBIN 29.2 PG (27.0-34.0); MEAN CORPUSCULAR HGB CONC 34.4 % (32.0-36.0); MONO % 9.4 % (0.0-8.0); MONOCYTE # 1.3 TH/MM3 (0-0.9); NEUT % 83.8 % (16.0-70.0); PLATELET COUNT 157 TH/MM3 (150-450); RED BLOOD COUNT 4.44 MIL/MM3 (4.00-5.30); RED CELL DISTRIBUTION WIDTH 13.4 % (11.6-17.2); WHITE BLOOD COUNT 14.2 TH/MM3 (4.0-11.0)
[2017-11-22 06:19] LABS: BICARBONATE 19.3 MEQ/L (21.0-32.0); CALCIUM 7.8 MG/DL (8.5-10.1); CREATININE 0.53 MG/DL (0.50-1.00); MAGNESIUM 1.9 MG/DL (1.5-2.5); PHOSPHORUS 3.6 MG/DL (2.5-4.9)
--- NOTE | 2017-11-22 08:10 | HHI.CCPN ---
Subjective Remarks/Hospital Course 52-year-old female with a diagnosis of MR as well as seizure apparently she was not taking her seizure medications and started seizing. Per paramedics report she had nonstop seizures such as repeated facial spasm and arm twitching which is her focal seizure like presentation. She was given 2 of Versed en route did not break her seizure and was given 2 more en route and then they called for a second dose of Versed and then a third. She arrived to emergency department sedated but yet still having facial twitching and arm twitching and was intubated by ED attending for an airway protection. Subjective: 11/21 Patient remains intubated and sedated with Fentanyl. Afebrile. 11/22: Tmax 99.0. The patient was extubated at 0345 AM, O2 saturations ranging 91-92 %. Chest x-ray pending. Patient slightly lethargic responding to questions. Objective Vital Signs Date Time Temp Pulse Resp B/P (MAP) Pulse Ox O2 Delivery O2 Flow Rate FiO2 11/22/17 06:00 99 11/22/17 05:40 94 Simple Mask 6.00 11/22/17 04:00 17 145/74 (97) 11/22/17 01:18 30 11/22/17 00:00 99.0 Intake and Output 11/22/17 11/22/17 11/23/17 08:00 16:00 00:00 Intake Total 115 ml Output Total 600 ml Balance -485 ml Result Diagram: 11/22/17 0531 11/22/17 0531 Imaging Last Impressions Chest X-Ray 11/21/17 0600 Signed Impressions: Service Date/Time: Tuesday, November 21, 2017 03:59 - CONCLUSION: 1. Endotracheal tube and nasogastric tube in good position. Minimal basilar dependent atelectasis. Milton Mojica MD Objective Remarks GENERAL: Well-developed well-nourished female , large easily arousable answering questions appropriately SKIN: Warm and dry. HEAD: Normocephalic. EYES: No scleral icterus. No injection or drainage. NECK: Supple, trachea midline. No JVD or lymphadenopathy. CARDIOVASCULAR: Tachycardic rate and normal rhythm without murmurs, gallops, or rubs. RESPIRATORY: Breath sounds equal bilaterally. No accessory muscle use. GASTROINTESTINAL: Abdomen soft, non-tender, nondistended. Normoactive bowel sounds MUSCULOSKELETAL: No cyanosis, or edema. BACK: Nontender without obvious deformity. NEURO EXAM: GCS 15. Follow commands extremities 4 Procedures 11/22-extubation Urinary Catheter: Yes Assessment to: Remove A/P Assessment and Plan VDRF Seizure disorder Lactic acidemia- cleared, 2nd seizures Electrolyte derangement Leukocytosis Plan Neuro: 11/20 Loaded with fosphenytoin in the ED Continue with Keppra, Vimpat 11/21 EEG -no epileptiform features 11/21 CT brain- negative for intracranial process Neurology following Pulm: Continue with vent support keep sat >92% Bronchodilators scheduled and PRN Extubated 11/22- initiate easy Pap and Acapella Follow-up chest x-ray this a.m. CV: Monitor HR and BP keep MAP>65mmHg Lactic acid cleared 1.5 today from 8.0 Telemetry sinus tachycardia 108 : Monitor renal function, electrolytes replacement per protocol. Decrease IVF NS@42 ml/hr D/C bailey GI: Maintain nothing by mouth status at this time patient is at risk for reintubation tentative plan initiate clear liquid diet this afternoon On Pepcid for GI prophylaxis Zofran for nausea ID: Monitor for signs of infections ( fever, WBC) Endo: SSI for glycemic control Heme: Monitor CBC DVT GI prophylaxis - Teds SCDs - Subcutaneous heparin - Pepcid Level 2 followup Physician Yudi Gallo MD Nov 22, 2017 08:10
[2017-11-22] MEDS: FAMOTIDINE 20 MG/2 ML VIAL IV PUSH SCH ×2 (08:52→20:30)
[2017-11-22] MEDS: SODIUM CHLORIDE 0.9% FLUSH 10 ML FLUSH IV FLUSH SCH ×2 (08:52→20:31)
[2017-11-22] MEDS: CEFEPIME INJ 2,000 MG in SODIUM CHLORIDE 0.9% INJ 100 ML IV SCH ×2 (08:54→18:25)
[2017-11-22] MEDS: DOCUSATE SODIUM 50 MG/SENNA 8.6 MG TAB PO SCH ×2 (08:56→20:30)
[2017-11-22] MEDS: CHLORHEXIDINE 0.12% (ORAL KIT) 15 ML CUP MT SCH ×2 (08:56→20:00)
[2017-11-22] MEDS ORDERED: AZITHROMYCIN INJ 250 MG in SODIUM CHLOR 0.9% 250 ML INJ 250 ML IV SCH (09:00)
--- NOTE | 2017-11-22 09:09 | RADRPT ---
EXAM DATE/TIME: 11/22/2017 08:40 [facility] COMPARISON: CHEST SINGLE AP, November 21, 2017, 3:59. INDICATIONS : Respiratory failure. MEDICAL HISTORY : None. SURGICAL HISTORY : None. ENCOUNTER: Sequela ACUITY: 3 days PAIN SCORE: Non-responsive. LOCATION: Bilateral chest FINDINGS: Interval extubation and removal of an orogastric tube. There are new bilateral pleural effusions and atelectasis of the right lower lobe. Heart size appears grossly normal. Pulmonary vasculature is norm al. CONCLUSION: Interval extubation with worsening lung exam. Atelectasis and right-sided pleural effusion. Left-side d pleural effusion, moderate in size. Azra Alas MD on November 22, 2017 at 9:06 Board Certified Radiologist. This report was verified electronically.
[2017-11-22] MEDS: levETIRAcetam INJ 100 ML IV SCH ×2 (11:16→23:01)
[2017-11-22] MEDS: AZITHROMYCIN INJ 250 MG in SODIUM CHLOR 0.9% 250 ML INJ 250 ML IV SCH (11:16)
[2017-11-22 14:08] LABS: PROTHROMBIN TIME - PATIENT 10.5 SEC (9.8-11.6)
--- NOTE | 2017-11-22 16:16 | RADRPT ---
EXAM DATE/TIME: 11/22/2017 15:23 [facility] COMPARISON: CHEST SINGLE AP, November 22, 2017, 8:40. INDICATIONS : Right pleural effusion. MEDICAL HISTORY : Seizures. SURGICAL HISTORY : Unable to obtain. ENCOUNTER: Subsequent ACUITY: 1 day PAIN SCORE: 0/10 LOCATION: Right chest MEASUREMENTS: SKIN TO PARIETAL PLEURA: Inadequate fluid SKIN TO MAX SAFE DEPTH: Inadequate fluid ESTIMATED FLUID VOLUME: Inadequate fluid FLUID COMPOSITION: Inadequate fluid FINDINGS: There is probable consolidation in the right lower lobe and no effusion is identified. No marking was performed. CONCLUSION: No pleural effusion . Probable consolidation in the lung lower lobe Stewart Ny MD on November 22, 2017 at 16:12 Board Certified Radiologist. This report was verified electronically.
--- NOTE | 2017-11-22 16:17 | RADRPT ---
EXAM DATE/TIME: 11/22/2017 15:25 [facility] COMPARISON: No previous studies available for comparison. INDICATIONS : Left pleural effusion. MEDICAL HISTORY : Seizures. SURGICAL HISTORY : Unable to obtain. ENCOUNTER: Initial ACUITY: 1 day PAIN SCORE: 0/10 LOCATION: Left chest MEASUREMENTS: SKIN TO PARIETAL PLEURA: Inadequate fluid SKIN TO MAX SAFE DEPTH: Inadequate fluid ESTIMATED FLUID VOLUME: Inadequate fluid FLUID COMPOSITION: Inadequate fluid FINDINGS: There is no evidence of pleural effusion No marking was performed. CONCLUSION: No pleural effusion Stewart Ny MD on November 22, 2017 at 16:14 Board Certified Radiologist. This report was verified electronically.
[2017-11-22] MEDS: SODIUM CHLOR 0.9% 1000 ML INJ 1,000 ML IV SCH (18:25)
[2017-11-23] VITALS (13 sets, daily range): BP systolic 124–128; BP diastolic 70–83; PULSE 72–98; RESP 22–41; TEMP 97.6–98.6; O2SAT 88–96
[2017-11-23] MEDS: CEFEPIME INJ 2,000 MG in SODIUM CHLORIDE 0.9% INJ 100 ML IV SCH ×3 (01:49→18:14)
[2017-11-23] MEDS: LACOSAMIDE INJ 150 MG in SODIUM CHLORIDE 0.9% INJ 100 ML IV SCH ×2 (03:32→15:54)
[2017-11-23] MEDS: CHLORHEXIDINE GLUCONATE 2 % 1 PACK (2 CLOTHS) TOP SCH (04:00)
[2017-11-23] MEDS: INSULIN NovoLIN REGULAR SUPPLEMENTAL SCALE SQ SCH ×2 (04:00→08:00)
[2017-11-23 05:37] LABS: AUTOMATED NEUTROPHIL # 9.1 TH/MM3 (1.8-7.7); BASOPHIL % 0.1 % (0.0-2.0); LYMPH % 3.9 % (9.0-44.0); LYMPHOCYTE # 0.4 TH/MM3 (1.0-4.8); MEAN CELL VOLUME 85.3 FL (80.0-100.0); MEAN CORPUSCULAR HEMOGLOBIN 29.2 PG (27.0-34.0); MEAN CORPUSCULAR HGB CONC 34.3 % (32.0-36.0); MEAN PLATELET VOLUME 9.1 FL (7.0-11.0); MONO % 5.7 % (0.0-8.0); MONOCYTE # 0.6 TH/MM3 (0-0.9); NEUT % 90.3 % (16.0-70.0); PLATELET COUNT 158 TH/MM3 (150-450); RED BLOOD COUNT 4.11 MIL/MM3 (4.00-5.30); RED CELL DISTRIBUTION WIDTH 13.5 % (11.6-17.2); WHITE BLOOD COUNT 10.1 TH/MM3 (4.0-11.0)
[2017-11-23] MEDS: HEPARIN SODIUM - SQ 10,000 UNITS/ML VIAL SQ SCH ×3 (06:04→21:27)
[2017-11-23 06:13] LABS: BICARBONATE 22.1 MEQ/L (21.0-32.0); CALCIUM 8.9 MG/DL (8.5-10.1); CREATININE 0.54 MG/DL (0.50-1.00); PHOSPHORUS 1.8 MG/DL (2.5-4.9)
[2017-11-23] MEDS: AZITHROMYCIN INJ 250 MG in SODIUM CHLOR 0.9% 250 ML INJ 250 ML IV SCH (09:50)
[2017-11-23] MEDS: SODIUM CHLORIDE 0.9% FLUSH 10 ML FLUSH IV FLUSH SCH ×2 (09:50→21:00)
[2017-11-23] MEDS: DOCUSATE SODIUM 50 MG/SENNA 8.6 MG TAB PO SCH ×2 (09:50→21:28)
[2017-11-23] MEDS: CHLORHEXIDINE 0.12% (ORAL KIT) 15 ML CUP MT SCH ×2 (09:50→20:00)
[2017-11-23] MEDS: FAMOTIDINE 20 MG/2 ML VIAL IV PUSH SCH (09:50)
[2017-11-23] MEDS: levETIRAcetam INJ 100 ML IV SCH ×2 (09:51→21:27)
--- NOTE | 2017-11-23 14:25 | HHI.CCPN ---
Subjective Remarks/Hospital Course 52-year-old female with a diagnosis of MR as well as seizure apparently she was not taking her seizure medications and started seizing. Per paramedics report she had nonstop seizures such as repeated facial spasm and arm twitching which is her focal seizure like presentation. She was given 2 of Versed en route did not break her seizure and was given 2 more en route and then they called for a second dose of Versed and then a third. She arrived to emergency department sedated but yet still having facial twitching and arm twitching and was intubated by ED attending for an airway protection. Subjective: 11/21 Patient remains intubated and sedated with Fentanyl. Afebrile. 11/22: Tmax 99.0. The patient was extubated at 0345 AM, O2 saturations ranging 91-92 %. Chest x-ray pending. Patient slightly lethargic responding to questions. 11/23: No acute events overnight. Patient more alert and conversant today. Yesterday chest x-ray read bilateral pleural effusions, ultrasound obtained in anticipation of thoracentesis, fluid bilateral lobes non-quantifiable most likely consolidation. Patient up out of bed O2 sat ranging 90-95%. Objective Vital Signs Date Time Temp Pulse Resp B/P (MAP) Pulse Ox O2 Delivery O2 Flow Rate FiO2 11/23/17 08:30 96 Nasal Cannula 3.00 11/23/17 06:00 92 11/23/17 04:00 97.6 32 124/71 (88) 11/22/17 01:18 30 Intake and Output 11/23/17 11/23/17 11/24/17 08:00 16:00 00:00 Intake Total 744 ml Output Total 700 ml Balance 44 ml Result Diagram: 11/23/17 0447 11/23/17 0441 Other Results Microbiology Date/Time Source Procedure Growth Status 11/20/17 23:44 Sputum Endotracheal Gram Stain - Final Complete 11/20/17 23:44 Sputum Endotracheal Sputum Culture - Final HEAVY GROWTH NORMAL RESPIRATORY LO Complete 11/20/17 21:45 Urine Random Urine Urine Culture - Final NO GROWTH IN 48 HOURS. Complete Imaging Last Impressions Chest X-Ray 11/22/17 0000 Signed Impressions: Service Date/Time: Wednesday, November 22, 2017 08:40 - CONCLUSION: Interval extubation with worsening lung exam. Atelectasis and right-sided pleural effusion. Left-sided pleural effusion, moderate in size. Azra Alsa MD Chest Ultrasound 11/22/17 0000 Signed Impressions: Service Date/Time: Wednesday, November 22, 2017 15:25 - CONCLUSION: No pleural effusion Stewatr Ny MD Head CT 11/21/17 0000 Signed Impressions: Service Date/Time: Tuesday, November 21, 2017 14:46 - CONCLUSION: Negative for acute process. Hosea Scott MD FACR Last Impressions Chest X-Ray 11/21/17 0600 Signed Impressions: Service Date/Time: Tuesday, November 21, 2017 03:59 - CONCLUSION: 1. Endotracheal tube and nasogastric tube in good position. Minimal basilar dependent atelectasis. Milton Mojica MD Objective Remarks GENERAL: Well-developed well-nourished female , sitting up in chair , laughing pleasantly conversant, in no apparent distress SKIN: Warm and dry. HEAD: Normocephalic. EYES: No scleral icterus. No injection or drainage. NECK: Supple, trachea midline. No JVD or lymphadenopathy. CARDIOVASCULAR: Regular rate and normal rhythm without murmurs, gallops, or rubs. RESPIRATORY: Breath sounds equal bilaterally. No accessory muscle use. GASTROINTESTINAL: Abdomen soft, non-tender, nondistended. Normoactive bowel sounds MUSCULOSKELETAL: No cyanosis, or edema. BACK: Nontender without obvious deformity. NEURO EXAM: GCS 15. Follow commands extremities 4 Procedures 11/22-extubation A/P Assessment and Plan VDRF Seizure disorder Lactic acidemia- cleared, 2nd seizures Electrolyte derangement Leukocytosis Plan Neuro: 11/20 Loaded with fosphenytoin in the ED Continue with Keppra, Vimpat 11/21 EEG -no epileptiform features 11/21 CT brain- negative for intracranial process Neurology following Pulm: Continue with vent support keep sat >92% Bronchodilators scheduled and PRN Extubated 11/22- initiate easy Pap and Acapella Follow-up chest x-ray this a.m. Lung consolidation-initiate empiric antibiotics- azithromycin, cefepime (day 2) CV: Monitor HR and BP keep MAP>65mmHg Lactic acid cleared 1.5 today from 8.0 Telemetry sinus tachycardia 108 : Monitor renal function, electrolytes replacement per protocol. Discontinued IVF NS@42 ml/hr D/C bailey GI: Heart healthy diet On Pepcid for GI prophylaxis Zofran for nausea Bowel regimen ID: Monitor for signs of infections ( fever, WBC) Endo: SSI for glycemic control Heme: Monitor CBC DVT GI prophylaxis - Teds SCDs - Subcutaneous heparin - Pepcid PO BID Level 2 [address]up. [address] transfer to [facility] in a.m., planned transfer to [facility] floor when bed made available on 11/24/19 Physician Yudi Gallo MD Nov 23, 2017 14:25
[2017-11-23] MEDS: SODIUM CHLOR 0.9% 1000 ML INJ 1,000 ML IV SCH (15:54)
[2017-11-23] MEDS: FAMOTIDINE 20 MG TAB PO SCH (21:26)
[2017-11-24] VITALS (17 sets, daily range): BP systolic 115–132; BP diastolic 63–71; PULSE 72–97; RESP 24–49; TEMP 97.5–98.9; O2SAT 92–100
[2017-11-24] MEDS: CEFEPIME INJ 2,000 MG in SODIUM CHLORIDE 0.9% INJ 100 ML IV SCH ×2 (02:00→09:29)
[2017-11-24] MEDS: LACOSAMIDE INJ 150 MG in SODIUM CHLORIDE 0.9% INJ 100 ML IV SCH ×2 (03:00→14:54)
[2017-11-24] MEDS: CHLORHEXIDINE GLUCONATE 2 % 1 PACK (2 CLOTHS) TOP SCH (04:00)
[2017-11-24] MEDS: SODIUM CHLOR 0.9% 1000 ML INJ 1,000 ML IV SCH (04:15)
[2017-11-24] MEDS: HEPARIN SODIUM - SQ 10,000 UNITS/ML VIAL SQ SCH ×3 (05:52→20:57)
[2017-11-24] MEDS: CHLORHEXIDINE 0.12% (ORAL KIT) 15 ML CUP MT SCH ×2 (08:00→20:00)
[2017-11-24 09:09] LABS: HEMATOCRIT 33.7 % (35.0-46.0); HEMOGLOBIN 11.7 GM/DL (11.6-15.3); MEAN CELL VOLUME 84.1 FL (80.0-100.0); MEAN CORPUSCULAR HEMOGLOBIN 29.3 PG (27.0-34.0); MEAN CORPUSCULAR HGB CONC 34.8 % (32.0-36.0); MEAN PLATELET VOLUME 8.6 FL (7.0-11.0); PLATELET COUNT 174 TH/MM3 (150-450); RED BLOOD COUNT 4.01 MIL/MM3 (4.00-5.30); RED CELL DISTRIBUTION WIDTH 13.4 % (11.6-17.2)
[2017-11-24] MEDS: FAMOTIDINE 20 MG TAB PO SCH ×2 (09:28→20:57)
[2017-11-24] MEDS: DOCUSATE SODIUM 50 MG/SENNA 8.6 MG TAB PO SCH ×2 (09:28→20:57)
[2017-11-24] MEDS: AZITHROMYCIN INJ 250 MG in SODIUM CHLOR 0.9% 250 ML INJ 250 ML IV SCH (12:03)
[2017-11-24] MEDS: SODIUM CHLORIDE 0.9% FLUSH 10 ML FLUSH IV FLUSH SCH ×2 (12:04→20:56)
[2017-11-24] MEDS: levETIRAcetam INJ 100 ML IV SCH (12:05)
--- NOTE | 2017-11-24 12:44 | HHI.PR ---
Subjective Remarks patient seen with Mom at bedside Nemo is right handed, independent with her ADLs admitted to non compliance with meds for 3 days denies any fever or headaches, nausea or vomiting + cough dry Objective Vitals Vital Signs Date Time Temp Pulse Resp B/P (MAP) Pulse Ox O2 Delivery O2 Flow Rate FiO2 11/24/17 11:00 93 11/24/17 10:00 97 11/24/17 09:00 83 11/24/17 08:38 100 Nasal Cannula 4.00 11/24/17 08:00 97.5 85 43 118/64 (82) 95 11/24/17 08:00 85 11/24/17 07:30 92 11/24/17 07:00 96 Nasal Cannula 6.00 Humidified 11/24/17 07:00 76 11/24/17 04:00 98.0 82 28 125/63 (83) 96 11/24/17 00:00 98.2 84 24 132/71 (91) 96 11/23/17 21:48 92 Nasal Cannula 6.00 11/23/17 20:00 98.4 97 22 128/73 (91) 88 11/23/17 19:00 Nasal Cannula 6.00 Humidified 11/23/17 18:00 72 11/23/17 16:00 92 11/23/17 16:00 98.6 92 32 128/83 (98) 93 11/23/17 14:00 95 I/O 11/23/17 11/23/17 11/23/17 11/24/17 11/24/17 11/24/17 07:00 15:00 23:00 07:00 15:00 23:00 Intake Total 844 ml 1015 ml 530 ml Output Total 700 ml Balance 144 ml 1015 ml 530 ml Intake Oral 30 ml 500 ml 240 ml IV Total 814 ml 515 ml 290 ml Output Urine Total 700 ml # Voids 5 7 3 # Bowel Movements 0 0 1 Result Diagram: 11/24/17 0853 11/23/17 0441 Imaging Last Impressions Chest X-Ray 11/22/17 0000 Signed Impressions: Service Date/Time: Wednesday, November 22, 2017 08:40 - CONCLUSION: Interval extubation with worsening lung exam. Atelectasis and right-sided pleural effusion. Left-sided pleural effusion, moderate in size. Azra Alas MD Chest Ultrasound 11/22/17 0000 Signed Impressions: Service Date/Time: Wednesday, November 22, 2017 15:25 - CONCLUSION: No pleural effusion Stewart Ny MD Head CT 11/21/17 0000 Signed Impressions: Service Date/Time: Tuesday, November 21, 2017 14:46 - CONCLUSION: Negative for acute process. Hosea Scott MD FACR Objective Remarks awake and alert, on NC, a x ox 3, appears tachypneic anicteric no nuchal rigidity lungs- decrease breath sounds regular rhythm abdomen soft good bowel sounds, non tender extremities no edema neuro exam- non focal Procedures 11/22-extubation A/P Assessment and Plan 52 years old Recurrence Seizure due to non compliance with history of Seizure disorder - continue on Vimpat, Keppra- 11/21 EEG -no epileptiform features 11/21 CT brain- negative for intracranial process Neurology following - PT consult - neuro stable Respiratory Failure S/P extubation now on 4 LNC - monitor 02-and respiratory status closely - wean as tolerated - patient is a non smoker no history fo HAD Pneumonia- likely aspiration - Persistent consolidation vs Atelectasis - US shows no pleural effusion - continue On IV antibiotics- change to IV Unasyn 3 gm q 6 - get another CXR with decubitus film- check for layering - if no improvement or fluid - get a chest CT or Pulmonary consult ? need for bronchoscopy Lactic acidemia-- resolved - 2nd seizures Electrolyte derangement- corrected monitor PT eval and treat - Subcutaneous heparin q 8 for DVT prophylaxis - Pepcid PO BID Nyla Pascual MD Nov 24, 2017 12:44
[2017-11-24] MEDS ORDERED: AMPICILLIN-SULBACTAM INJ 3 GM VIAL IM SCH (13:00)
--- NOTE | 2017-11-24 14:34 | RADRPT ---
EXAM DATE/TIME: 11/24/2017 13:07 [facility] COMPARISON: CHEST SINGLE AP, November 22, 2017, 8:40. INDICATIONS : Evaluate for pleural effusion. MEDICAL HISTORY : None. SURGICAL HISTORY : None. ENCOUNTER: Subsequent ACUITY: 4 - 6 days PAIN SCORE: 0/10 LOCATION: Bilateral chest FINDINGS: Diffuse patchy perihilar opacities. No significant pleural effusion. Cardiome some contours are withi n normal limits. Bony thorax is intact. CONCLUSION: 1. Diffuse patchy perihilar opacities most consistent with pulmonary edema pattern. 2. No significant pleural effusion as questioned. Fadi Lancaster MD on November 24, 2017 at 14:11 Board Certified Radiologist. This report was verified electronically.
[2017-11-24] MEDS ORDERED: AMPICILLIN-SULBACTAM INJ 3 GM VIAL IV SCH (15:00)
--- NOTE | 2017-11-24 15:15 | RADRPT ---
EXAM DATE/TIME: 11/24/2017 13:15 [facility] COMPARISON: No previous studies available for comparison. INDICATIONS : Evaluate for pleural effusion. MEDICAL HISTORY : None. SURGICAL HISTORY : None. ENCOUNTER: Subsequent ACUITY: 4 - 6 days PAIN SCORE: 0/10 LOCATION: Right chest FINDINGS: A single lateral decubitus film with the right side down demonstrates a normal thickness to the depen dant pleura. No evidence of pleural effusion. CONCLUSION: No significant pleural effusion. Significant bilateral consolidative changes. Hosea Scott MD FACR on November 24, 2017 at 15:09 Board Certified Radiologist. This report was verified electronically.
[2017-11-24] MEDS: AMPICILLIN/SULBAC 3 GM/NS 100 ML IV SCH ×4 (17:10→20:56)
--- NOTE | 2017-11-24 22:40 | RADRPT ---
EXAM DATE/TIME: 11/24/2017 22:12 [facility] COMPARISON: No previous studies available for comparison. INDICATIONS : Short of breath. RADIATION DOSE: 7.51 CTDIvol (mGy) MEDICAL HISTORY : Seizures. SURGICAL HISTORY : None. ENCOUNTER: Initial ACUITY: 1 day PAIN SCALE: 0/10 LOCATION: chest TECHNIQUE: Volumetric scanning of the chest was performed. Using automated exposure control and adjustment of t he mA and/or kV according to patient size, radiation dose was kept as low as reasonably achievable to obtain optimal diagnostic quality images. DICOM format image data is available electronically for r eview and comparison. Follow-up recommendations for detected pulmonary nodules are based at a minimum on nodule size and pa tient risk factors according to Fleischner Society Guidelines. FINDINGS: Airspace disease in both lungs which is clearly upper lobe predominant. This has developed over the l ast 4 days with a chest radiograph from November 20 relatively clear. There are small bilateral pleura l effusions, right greater than left. Borderline enlarged mediastinal lymph nodes noted. There is a s mall pericardial effusion. No acute bony abnormality. No acute findings in the upper abdomen. CONCLUSION: 1. Development of bilateral airspace disease over the last 4 days, upper lobe predominant with small pleural effusions. Differential diagnosis includes bronchopneumonia and aspiration. Also consider chyna e form of hypersensitivity or drug reaction. Milton Mojica MD on November 24, 2017 at 22:35 Board Certified Radiologist. This report was verified electronically.
[2017-11-25] VITALS (16 sets, daily range): BP systolic 118–136; BP diastolic 64–79; PULSE 76–92; RESP 17–46; TEMP 97.5–99.1; O2SAT 91–99
[2017-11-25] MEDS: levETIRAcetam INJ 100 ML IV SCH ×3 (00:27→22:22)
[2017-11-25] MEDS: SODIUM CHLOR 0.9% 1000 ML INJ 1,000 ML IV SCH (00:36)
[2017-11-25] MEDS: LACOSAMIDE INJ 150 MG in SODIUM CHLORIDE 0.9% INJ 100 ML IV SCH ×2 (02:21→15:52)
[2017-11-25] MEDS ORDERED: RESP: ALBUTEROL 2.5 MG/IPRATROPIUM 0.5 MG NEB (SCH) INH ONE (03:30)
[2017-11-25] MEDS: RESP: ALBUTEROL 2.5 MG/IPRATROPIUM 0.5 MG NEB (SCH) INH ×6 (03:30→23:03)
--- NOTE | 2017-11-25 03:46 | RADRPT ---
EXAM DATE/TIME: 11/25/2017 03:15 [facility] COMPARISON: CHEST SINGLE AP, November 24, 2017, 13:07. INDICATIONS : Short of breath. MEDICAL HISTORY : None. SURGICAL HISTORY : None. ENCOUNTER: Initial ACUITY: 1 day PAIN SCORE: 0/10 LOCATION: Bilateral chest FINDINGS: There are bilateral alveolar infiltrates identified left greater than right. Heart size normal. [place] us structures are intact. CONCLUSION: Bilateral pulmonary infiltrates are again seen and increased in the right lower lobe today. Yan Perez MD on November 25, 2017 at 3:43 Board Certified Radiologist. This report was verified electronically.
[2017-11-25] MEDS: AMPICILLIN/SULBAC 3 GM/NS 100 ML IV SCH ×2 (03:49)
[2017-11-25] MEDS: CHLORHEXIDINE GLUCONATE 2 % 1 PACK (2 CLOTHS) TOP SCH (04:00)
--- NOTE | 2017-11-25 04:14 | HHI.PR ---
Addendum to Inpatient Note Addendum Reason: Additional Documentation Additional Information S: Resident team was paged at approximately 0300 for Halicat for increased respiratory rate. She is a 52-year-old female with past history of seizures, MR , initially admitted to the hospital for seizure activity, was intubated in the ED. Patient had since been extubated and had been on Unasyn for a likely aspiration pneumonia. Staff reports the patient's been breathing in the 40s pretty consistently since earlier the day before. Currently the patient reports she has increased respiratory effort. Feels as though she needs to take faster breaths, has mild cough, some sputum production. Able to speak full sentences without taking a breath. She notes she's had episodes like this at home which pass. No chest pain, pain in arm/jaw, sweating. She does not believe she's had a seizure today as she typically will have amnesia associated with it and she "remembers the day". O: BP: 134/74 pulse 84 temperature 98.9 RR46 O2 saturation 97% on NC 5 L/m GENERAL: Seated up, increased respiratory rate, makes eye contact and talkative SKIN: Warm and dry. HEAD: Atraumatic. Normocephalic. EYES: Pupils equal and round. No scleral icterus. No injection or drainage. ENT: No nasal bleeding or discharge. Mucous membranes pink and moist. NECK: Trachea midline. No JVD. CARDIOVASCULAR: Regular rhythm, mildly elevated rate. RESPIRATORY: No accessory muscle use. Breath sounds equal bilaterally. Crackles in bases bilaterally, no wheeze/rhonchi. GASTROINTESTINAL: Abdomen soft, non-tender, nondistended. MUSCULOSKELETAL: Extremities without clubbing, cyanosis, or edema. No obvious deformities. NEUROLOGICAL: Awake and alert. No obvious cranial nerve deficits. Motor grossly within normal limits. Five out of 5 muscle strength in the arms and legs. Slow speech. A/P 52-year-old female with past history of seizures, MR initially admitted for seizure-like activity, temporarily intubated, currently being treated for aspiration pneumonia who demonstrated increased respiratory rate. Wet read on CXR appears to have bilateral pulmonary infiltrates, possibly increased on the right side from previous CXR. No large pneumothoraces seen. Will need to follow up official radiology read. ABG pH 7.43, PaO2 98, PCO2 34, O2 saturation 96%. Administered one treatment of DuoNeb's which resulted in decreased respiratory rate to the low 20s. -Follow up chest x-ray official read -DuoNeb's scheduled every 4 hours -Albuterol every 2 hours as needed -Monitor patient's respiratory status, re-page as necessary Malvin Boyle MD R1 Nov 25, 2017 04:14
[2017-11-25] MEDS ORDERED: POTASSIUM PHOSPHATE INJ 30 MMOL in SODIUM CHLOR 0.9% 250 ML INJ 250 ML IV ONE (05:30)
[2017-11-25] MEDS ORDERED: Vancomycin Consult Pharmacy 1 EA OTHER SCH (05:30)
[2017-11-25] MEDS ORDERED: POTASSIUM PHOSPHATE MONOBASIC 500 MG TAB PO ONE (05:30)
--- NOTE | 2017-11-25 05:43 | HHI.PR ---
Addendum to Inpatient Note Addendum Reason: Additional Documentation Additional Information Was called by patient's nurse at 4:40 AM that rapid response was called on this patient about 1 hour ago. Chart reviewed. Patient's nurse had called me prior earlier during the night the patient was tachypneic upon her arrival from ICU. She was tachypneic during her stay in ICU as well according to the nurse and also on review of medical records. Therefore I had requested patient's nurse to discuss with the charge nurse and also to discuss with the rapid response nurse to make sure the patient is stable and likely the vitals are prolonged. I never received any phone calls back since that initial conversation and to one hour after this rapid response was called. Resident team had responded to rapid response. Apparently they have obtained ABG, chest x-ray, and nebulizer treatments. Results reviewed personally. ABG reveals respiratory alkalosis with hypoxemia on [address] chest was done yesterday and personally reviewed. Bilateral pulmonary infiltrates. Patient is examined at the bedside. Patient is sleeping. However noted to have significant JVD, tachypneic in the 30s. She is saturating 90-95% on 5 L nasal cannula. One awakens, patient is awake, alert, oriented and able to give symptoms. She reports of shortness of breath. She is able to complete sentences. She denies any other symptoms. She is warm to touch. Her heart rate is regular, tachycardic, no murmur appreciated. Lungs sounds revealed bilateral crepitations at the bases. No alcon rales. Abdomen is soft and nontender. Lower extremities no calf asymmetry or edema. Patient has SCD wrapping on although the machine is not connected. Impression: Tachypnea Respiratory alkalosis Hypophosphatemia Bilateral pneumonia. Suspect the patient is going into ARDS. Prolonged hospitalization with ICU stay on mechanical DVT prophylaxis Respiratory failure requiring intubation on admission Aspiration pneumonia/ventilator associated pneumonia Status epilepticus on admission Plan: Obtain CT pulmonary angiogram to rule out pulmonary embolism since patient is only receiving mechanical ventilation. We'll check BMP and electrolytes status. Replace potassium in few of recent intubation, respiratory muscle weakness Patient was receiving Unasyn. Start her on vancomycin and Zosyn for creatinine clearance and levels. Nebulizers. Replace K-Phos 30 mmol IV and K-Phos neutral tabs for next 24 hours. DVT prophylaxis. Start Lovenox. We'll follow up CT pulmonary angiogram. We will need to monitor patient closely. Suspect that patient may need BiPAP if no improvement. Possible she is going into ARDS. Barrington Flores MD Nov 25, 2017 05:43
[2017-11-25] MEDS: HEPARIN SODIUM - SQ 10,000 UNITS/ML VIAL SQ SCH ×3 (05:55→22:23)
[2017-11-25] MEDS ORDERED: VANCOMYCIN 1 GM/200 ML PREMIX IV ONE (06:00)
[2017-11-25] MEDS ORDERED: ENOXAPARIN SODIUM 80 MG/0.8 ML SYRINGE SQ ONE (06:00)
[2017-11-25 06:45] LABS: BICARBONATE 24.1 MEQ/L (21.0-32.0); CALCIUM 8.7 MG/DL (8.5-10.1); CREATININE 0.37 MG/DL (0.50-1.00); MAGNESIUM 2.1 MG/DL (1.5-2.5)
[2017-11-25] MEDS: CHLORHEXIDINE 0.12% (ORAL KIT) 15 ML CUP MT SCH ×2 (07:54→20:00)
[2017-11-25] MEDS: PIPERACIL-TAZO 4.5 GM PREMIX 100 ML IV SCH ×3 (08:20→17:07)
[2017-11-25] MEDS: SODIUM CHLORIDE 0.9% FLUSH 10 ML FLUSH IV FLUSH SCH ×2 (08:23→22:26)
[2017-11-25] MEDS: POTASSIUM PHOSPHATE MONOBASIC 500 MG TAB PO SCH ×2 (08:23→22:25)
[2017-11-25] MEDS: FAMOTIDINE 20 MG TAB PO SCH ×2 (08:23→22:24)
[2017-11-25] MEDS: DOCUSATE SODIUM 50 MG/SENNA 8.6 MG TAB PO SCH ×2 (08:24→21:00)
[2017-11-25 08:52] LABS: BACTERIA, URINE RARE /hpf; BILIRUBIN, URINE NEG (NEG); BLOOD, URINE NEG (NEG); GLUCOSE,URINE NEG (NEG); HYALINE CAST, URINE 3 /lpf (RARE); KETONE, URINE 150 mg/dL (NEG); MUCUS URINE FEW /lpf (OCC); NITRITE,URINE NEG (NEG); PH, URINE 6.5 (5.0-8.5); SQUAMOUS EPITHELIAL CELL URINE <1 /hpf (0-5); URINE COLOR YELLOW (YELLW/STRAW); URINE LEUKOCYTE ESTERASE NEG (NEG)
[2017-11-25] MEDS ORDERED: IOHEXOL 350 MG/ML 10 ML VIAL (for RAD DIAG) IVCONTRAST ONE (10:13)
--- NOTE | 2017-11-25 10:35 | RADRPT ---
EXAM DATE/TIME: 11/25/2017 10:11 [facility] COMPARISON: No previous studies available for comparison. INDICATIONS : Shortness of breath; rule out pulmonary embolus. IV CONTRAST: 72 cc Omnipaque 350 (iohexol) IV RADIATION DOSE: 7.0 CTDIvol (mGy) MEDICAL HISTORY : Seizures. SURGICAL HISTORY : None. ENCOUNTER: Initial ACUITY: 1 day PAIN SCALE: 0/10 LOCATION: chest TECHNIQUE: Volumetric scanning of the chest was performed using a pulmonary embolism protocol MIP images were re constructed. Using automated exposure control and adjustment of the mA and/or kV according to patien t size, radiation dose was kept as low as reasonably achievable to obtain optimal diagnostic quality images. DICOM format image data is available electronically for review and comparison. Follow-up recommendations for detected pulmonary nodules are based at a minimum on nodule size and pa tient risk factors according to Fleischner Society Guidelines. FINDINGS: PULMONARY ARTERIES: No filling defects are seen in the pulmonary arteries through the segmental level. LUNGS: Diffuse bilateral intra-alveolar pulmonary infiltrates more abundant within the upper lobes. PLEURAE: Small bilateral pleural effusions. MEDIASTINUM: A tiny pericardial effusion. Heart is normal in size. No adenopathy. Aorta is normal in caliber. MUSCULOSKELETAL: Within normal limits for patient age. MISCELLANEOUS: The visualized upper abdominal organs demonstrate no acute abnormality. CONCLUSION: 1. No pulmonary emboli. 2. Diffuse bilateral pulmonary infiltrates with small effusions. Elvis Khan Jr., MD on November 25, 2017 at 10:30 Board Certified Radiologist. This report was verified electronically.
--- NOTE | 2017-11-25 15:12 | HHI.PR ---
Subjective Remarks awake and alert, minimal dry cough appears tachypneic- afebrile, states mild shortness of breath seen with Mom at bedside Objective Vitals Vital Signs Date Time Temp Pulse Resp B/P (MAP) Pulse Ox O2 Delivery O2 Flow Rate FiO2 11/25/17 12:35 98.0 82 32 118/66 (83) 96 11/25/17 12:30 76 11/25/17 10:33 Nasal Cannula 4.00 11/25/17 08:42 97.9 92 30 134/79 (97) 95 11/25/17 07:48 99 Nasal Cannula 5.00 11/25/17 06:31 98.5 85 36 129/68 (88) 93 11/25/17 03:23 98.5 84 24 129/70 (89) 97 11/25/17 03:10 96 5.00 11/25/17 03:00 98.5 78 44 134/78 (96) 11/25/17 02:40 Nasal Cannula 4.00 Humidified 11/25/17 02:03 97 Nasal Cannula 5.00 11/25/17 01:40 46 91 11/25/17 01:35 99.1 87 40 136/64 (88) 93 11/24/17 20:00 74 11/24/17 20:00 Nasal Cannula 4.00 Humidified 11/24/17 20:00 98.9 72 44 115/64 (81) 92 11/24/17 18:00 82 11/24/17 17:00 81 11/24/17 16:00 74 11/24/17 16:00 97.9 74 49 126/69 (88) 98 I/O 11/24/17 11/24/17 11/24/17 11/25/17 11/25/17 11/25/17 07:00 15:00 23:00 07:00 15:00 23:00 Intake Total 530 ml 450 ml 565 ml 500 ml Output Total 900 ml Balance 530 ml 450 ml -335 ml 500 ml Intake Oral 240 ml 350 ml IV Total 290 ml 450 ml 215 ml 500 ml Output Urine Total 900 ml # Voids 3 1 # Bowel Movements 1 Result Diagram: 11/24/17 0853 11/25/17 0610 Imaging Last Impressions Chest X-Ray 11/25/17 0000 Signed Impressions: Service Date/Time: Saturday, November 25, 2017 03:15 - CONCLUSION: Bilateral pulmonary infiltrates are again seen and increased in the right lower lobe today. Yan Perez MD CT Angiography 11/25/17 0000 Signed Impressions: Service Date/Time: Saturday, November 25, 2017 10:11 - CONCLUSION: 1. No pulmonary emboli. 2. Diffuse bilateral pulmonary infiltrates with small effusions. Elvis Khan Jr., MD Chest CT 11/24/17 0000 Signed Impressions: Service Date/Time: Friday, November 24, 2017 22:12 - CONCLUSION: 1. Development of bilateral airspace disease over the last 4 days, upper lobe predominant with small pleural effusions. Differential diagnosis includes bronchopneumonia and aspiration. Also consider some form of hypersensitivity or drug reaction. Milton Mojica MD Chest Ultrasound 11/22/17 0000 Signed Impressions: Service Date/Time: Wednesday, November 22, 2017 15:25 - CONCLUSION: No pleural effusion Stewart Ny MD Head CT 11/21/17 0000 Signed Impressions: Service Date/Time: Tuesday, November 21, 2017 14:46 - CONCLUSION: Negative for acute process. Hosea Scott MD FACR Objective Remarks awake and alert, on NC, a x ox 3, appears tachypneic anicteric no nuchal rigidity lungs- decrease breath sounds right base to mid, decrease vocal fremiti few inspiratory wheezes on anterior chest auscultation regular rhythm abdomen soft good bowel sounds, non tender extremities no edema neuro exam- non focal Procedures 11/22-extubation A/P Assessment and Plan 52 years old admitted for Recurrence Seizure due to non compliance with history of Seizure disorder - continue on Vimpat, Keppra- change to po in am if continues to be stable respiratory tidwell 11/21 EEG -no epileptiform features 11/21 CT brain- negative for intracranial process Neurology following - PT daily - neuro stable Respiratory Failure S/P extubation now on 4 LNC- no history of HAD, no smoker - mild tachypnea, some few inspiratory wheezes anteriorly - persistently decrease breath sounds-and vocal fremiti right base to mid- no effusion or layering on CXR - start IV Solumedrol 60 mg IV now then q 6 - duonebs q 6 scheduled and prn - on IV antibitoics - Pulmonary consult Pneumonia- likely aspiration - Persistent consolidation vs Atelectasis - non productive cough - US shows no pleural effusion - continue On IV antibiotics- now on Vancomycin and zosyn - Pulmonary consulted ? eval need for bronchoscopy Lactic acidemia-- resolved - 2nd seizures Electrolyte derangement- corrected monitor Hypokalemia- po Potassium x 2 days recheck in am PT eval and treat - Subcutaneous heparin q 8 for DVT prophylaxis - Pepcid PO BID Nyla Pascual MD Nov 25, 2017 15:12
[2017-11-25] MEDS: methylPREDNISolone SOD SUCC 40 MG/1 ML VIAL IV PUSH SCH ×2 (15:55→22:23)
[2017-11-25] MEDS: RESP: ALBUTEROL 2.5 MG/3 ML NEB (PRN) INH (17:26)
--- NOTE | 2017-11-25 19:47 | MB ---
cc: JESSICA YOON ALFEA DATE OF CONSULTATION: 11/25/2017 REQUESTING PHYSICIAN: Dr. Pascual. REASON FOR CONSULTATION: Bilateral lung infiltrates. HISTORY OF PRESENT ILLNESS Ms. Johnson is pleasant 52-year-old female with history of mitral regurgitation, bipolar disorder and seizure disorder. She says that as a child she had seizures when she was in grade school but over the last day she started seizing again. The patient was admitted with seizures and she required airway protection and was on the ventilator and has been extubated. Currently she is 4 to 5 liters nasal cannula. She was getting more short of breath. She was sent for CTA of the chest, does not show any pulmonary embolism. However, it shows that she has bilateral diffuse pulmonary infiltrate and small pleural effusion. Her WBC count is 10,000, hemoglobin 11.7, hematocrit 33.7, MCV 84, platelet count 174. Sodium 140, potassium 3.2, chloride 108, CO2 24, BUN 11, creatinine 0.37. Blood gas on 5 liters nasal cannula, pH 7.43, PCO2 34, PO2 98 bicarb 22. PAST MEDICAL HISTORY: Significant for: 1. Seizure disorder. 2. Mitral regurgitation. 3. Bipolar disorder. MEDICATIONS: Currently takin. Vancomycin IV. 2. Solu-Medrol 40 mg q. 6-hour. 3. Potassium supplement. 4. Zosyn IV. 5. Albuterol/Atrovent nebulizer treatments. 6. Famotidine 20 milligrams twice a day. 7. Keppra 400 milligrams q12 hours. ALLERGIES NO KNOWN DRUG ALLERGIES. SOCIAL HISTORY She is single, lives with her mother. No history of smoking or alcohol abuse. FAMILY HISTORY: Three brothers, one sister. Her mother was a nurse. REVIEW OF SYSTEMS: Normally she is up and active. Denies any recent nausea or vomiting. No fever or chills. She has mild shortness of breath. PHYSICAL EXAMINATION: VITAL SIGNS: Blood pressure 120/69, heart rate 78, respiratory rate 18, temperature 98.4. HEENT: Pupils are equal and reactive to light. Oral mucosa, nasal mucosa normal. NECK: Supple. JVP not raised. CHEST: No rales. ABDOMEN: Benign. EXTREMITIES: No edema. IMPRESSION: Bilateral lung infiltrate possibly from aspiration. Also possibility of hypersensitivity pneumonia and/or infectious process. Clinically she is stable. She has no fever, no mucositis. Seizure disorder. Bipolar disorder. Mitral regurgitation. PLAN: I discussed with the patient the antibiotics, vancomycin and Zosyn. Check the culture and de-escalate antibiotics. Continue IV Solu-Medrol aerosol treatment, supplemental oxygen. Will also check Legionella and pneumococcal urine antigen. Further treatment will depend on the course in the hospital. Thank you, Dr. Pascual, for this consult. Jessica Yoon MD ADA/[facility] /7:08 PM /7:23 PM
[2017-11-25] MEDS: VANCOMYCIN 1,500 MG/NS 500 ML IV SCH ×2 (22:22)
[2017-11-26] VITALS (19 sets, daily range): BP systolic 116–156; BP diastolic 58–81; PULSE 58–98; RESP 25–36; TEMP 97.3–98.8; O2SAT 87–100
[2017-11-26] MEDS: PIPERACIL-TAZO 4.5 GM PREMIX 100 ML IV SCH ×4 (00:47→17:24)
[2017-11-26] MEDS: RESP: ALBUTEROL 2.5 MG/3 ML NEB (PRN) INH ×2 (01:27→13:55)
--- NOTE | 2017-11-26 03:04 | HHI.PR ---
Addendum to Inpatient Note Addendum Reason: Additional Documentation Additional Information I was called tonight by patient's nurse because patient was tachypneic, and called out to the nurse stating that she has been short of breath. Respiratory placed patient on nonrebreather and called for rapid response. Patient is examined at the bedside. Patient is known to me from last night events. She is quite tachypneic as last night on nonrebreather. She reports she felt worse and then last night. Heart rate is regular, no murmur appreciated. Tachycardic around 100. Lungs sounds are actually quite clear without alcon rales or wheezing. She was also receiving breathing treatments at the time of my exam which makes the exam somewhat limited. Abdomen is soft and nontender. Lower extremities did not reveal any calf asymmetry or edema. Impression: Tachypnea Respiratory distress. Hyperventilation. Hypophosphatemia Bilateral pneumonia. Possible aspiration pneumonia given patient had status epilepticus on admission. Suspect the patient is going into ARDS. Prolonged hospitalization with ICU stay on mechanical DVT prophylaxis Respiratory failure requiring intubation on admission Aspiration pneumonia/ventilator associated pneumonia Status epilepticus on admission Plan: BiPAP 12 over 5, FiO2 to keep O2 sat 90-93%. Continue nebulizer treatments. Patient's antibiotics were adjusted last night/early today a.m. She is currently on vancomycin and Zosyn. We will continue same. Stat influenza studies sent. Will follow-up. Stat chest x-ray. Electrolytes including magnesium, phosphorus levels. CBC. BNP. Will obtain echocardiogram in a.m. to evaluate for valvular structures/LVEF/ diastolic function. Patient has mitral regurgitation per records. We'll follow-up above studies. Transfer patient to ICU for close monitoring. [employer] notes from yesterday reviewed Critical care time 35 minutes Barrington Flores MD Nov 26, 2017 03:04
[2017-11-26] MEDS: CHLORHEXIDINE GLUCONATE 2 % 1 PACK (2 CLOTHS) TOP SCH ×2 (03:25→19:40)
[2017-11-26] MEDS: methylPREDNISolone SOD SUCC 40 MG/1 ML VIAL IV PUSH SCH ×4 (03:29→21:41)
--- NOTE | 2017-11-26 03:31 | RADRPT ---
EXAM DATE/TIME: 11/26/2017 03:08 [facility] COMPARISON: No previous studies available for comparison. INDICATIONS : Shortness of breath. MEDICAL HISTORY : Seizures SURGICAL HISTORY : None. ENCOUNTER: Subsequent ACUITY: 4 - 6 days PAIN SCORE: 0/10 LOCATION: Bilateral chest FINDINGS: There is slight improved aeration of the right upper and lower lobes with increasing consolidation le ft lower lobe. Cardiomegaly. No effusion. CONCLUSION: Improved aeration on the right, increasing consolidation on the left. Yan Perez MD on November 26, 2017 at 3:29 Board Certified Radiologist. This report was verified electronically.
[2017-11-26] MEDS: LACOSAMIDE INJ 150 MG in SODIUM CHLORIDE 0.9% INJ 100 ML IV SCH ×2 (03:44→15:26)
[2017-11-26 03:57] LABS: BASOPHIL % 0.1 % (0.0-2.0); HEMATOCRIT 31.4 % (35.0-46.0); HEMOGLOBIN 10.9 GM/DL (11.6-15.3); LYMPHOCYTE # 0.2 TH/MM3 (1.0-4.8); MEAN CELL VOLUME 83.7 FL (80.0-100.0); MEAN CORPUSCULAR HEMOGLOBIN 29.1 PG (27.0-34.0); MEAN CORPUSCULAR HGB CONC 34.7 % (32.0-36.0); MEAN PLATELET VOLUME 8.2 FL (7.0-11.0); MONO % 3.8 % (0.0-8.0); MONOCYTE # 0.3 TH/MM3 (0-0.9); NEUT % 94.1 % (16.0-70.0); PLATELET COUNT 199 TH/MM3 (150-450); RED BLOOD COUNT 3.75 MIL/MM3 (4.00-5.30); RED CELL DISTRIBUTION WIDTH 13.6 % (11.6-17.2); WHITE BLOOD COUNT 7.4 TH/MM3 (4.0-11.0)
[2017-11-26 04:10] LABS: BICARBONATE 25.6 MEQ/L (21.0-32.0); CALCIUM 8.4 MG/DL (8.5-10.1); CREATININE 0.4 MG/DL (0.50-1.00); MAGNESIUM 2.1 MG/DL (1.5-2.5); PHOSPHORUS 2.3 MG/DL (2.5-4.9)
[2017-11-26] MEDS ORDERED: POTASSIUM CHLORIDE 20 MEQ CONTROLLED RELEASE TAB PO ONE (04:30)
[2017-11-26] MEDS: RESP: ALBUTEROL 2.5 MG/IPRATROPIUM 0.5 MG NEB (SCH) INH ×5 (04:37→20:14)
[2017-11-26] MEDS: POTASSIUM CHLOR 20 MEQ PREMIX 100 ML IV SCH ×2 (05:13→07:32)
[2017-11-26] MEDS: HEPARIN SODIUM - SQ 10,000 UNITS/ML VIAL SQ SCH ×3 (07:31→21:41)
[2017-11-26] MEDS: CHLORHEXIDINE 0.12% (ORAL KIT) 15 ML CUP MT SCH ×2 (08:00→20:00)
[2017-11-26] MEDS: FAMOTIDINE 20 MG TAB PO SCH ×2 (08:56→20:18)
[2017-11-26] MEDS: DOCUSATE SODIUM 50 MG/SENNA 8.6 MG TAB PO SCH ×2 (08:56→20:18)
[2017-11-26] MEDS: POTASSIUM PHOSPHATE MONOBASIC 500 MG TAB PO SCH (08:56)
[2017-11-26] MEDS: SODIUM CHLORIDE 0.9% FLUSH 10 ML FLUSH IV FLUSH SCH ×2 (08:57→20:19)
[2017-11-26] MEDS: VANCOMYCIN 1,500 MG/NS 500 ML IV SCH ×4 (10:02→20:19)
[2017-11-26] MEDS: SODIUM CHLOR 0.9% 1000 ML INJ 1,000 ML IV SCH (10:14)
[2017-11-26] MEDS: levETIRAcetam INJ 100 ML IV SCH ×2 (11:43→23:06)
--- NOTE | 2017-11-26 14:44 | HHI.PR ---
Subjective Remarks No seizures overnight. She is however short of breath and still on BiPAP. No wheezing at this time however she received nebulizers. No nausea vomiting no diarrhea or constipation. Does not eat too much. Yesterday was not able to eat. Did not have breakfast. She will try to eat lunch if able to wean off BiPAP. Objective Vitals Vital Signs Date Time Temp Pulse Resp B/P (MAP) Pulse Ox O2 Delivery O2 Flow Rate FiO2 11/26/17 14:00 80 11/26/17 12:00 63 11/26/17 12:00 98.7 58 30 152/77 (102) 100 11/26/17 11:59 100 11/26/17 10:00 72 11/26/17 08:53 99 11/26/17 08:00 97 11/26/17 08:00 98.8 92 35 136/81 (99) 98 11/26/17 07:00 99 Bi-Pap 30 11/26/17 06:00 58 11/26/17 04:40 97 30 11/26/17 04:00 97 Nasal Cannula 12.00 30 Bi-Pap 11/26/17 04:00 74 11/26/17 04:00 98.5 74 30 116/58 (77) 97 11/26/17 03:20 97 30 11/26/17 02:30 97 15.00 100 11/26/17 02:10 97.3 63 26 156/72 (100) 88 11/26/17 00:00 98.2 77 28 122/69 (86) 95 11/25/17 23:05 98 Nasal Cannula 4.00 11/25/17 20:00 97.5 90 24 128/68 (88) 95 11/25/17 19:00 Nasal Cannula 5.00 Humidified 11/25/17 17:26 94 Nasal Cannula 5.00 11/25/17 16:44 98.4 78 32 120/69 (86) 94 11/25/17 16:37 89 I/O 11/25/17 11/25/17 11/25/17 11/26/17 11/26/17 11/26/17 07:00 15:00 23:00 07:00 15:00 23:00 Intake Total 500 ml 1412 ml 100 ml 200 ml Balance 500 ml 1412 ml 100 ml 200 ml Intake Oral 100 ml IV Total 500 ml 1412 ml 200 ml # Voids 1 2 Result Diagram: 11/26/17 0326 11/26/17 1122 Imaging Last Impressions Chest X-Ray 11/26/17 0000 Signed Impressions: Service Date/Time: Sunday, November 26, 2017 03:08 - CONCLUSION: Improved aeration on the right, increasing consolidation on the left. Yan Perez MD CT Angiography 11/25/17 0000 Signed Impressions: Service Date/Time: Saturday, November 25, 2017 10:11 - CONCLUSION: 1. No pulmonary emboli. 2. Diffuse bilateral pulmonary infiltrates with small effusions. Elvis Khan Jr., MD Chest CT 11/24/17 0000 Signed Impressions: Service Date/Time: Friday, November 24, 2017 22:12 - CONCLUSION: 1. Development of bilateral airspace disease over the last 4 days, upper lobe predominant with small pleural effusions. Differential diagnosis includes bronchopneumonia and aspiration. Also consider some form of hypersensitivity or drug reaction. Milton Mojica MD Chest Ultrasound 11/22/17 0000 Signed Impressions: Service Date/Time: Wednesday, November 22, 2017 15:25 - CONCLUSION: No pleural effusion Stewart Ny MD Head CT 11/21/17 0000 Signed Impressions: Service Date/Time: Tuesday, November 21, 2017 14:46 - CONCLUSION: Negative for acute process. Hosea Scott MD FACR Objective Remarks GENERAL: Pleasant 52 yo F, awake and alert and oriented x 3, appears tachypneic , on BiPAP SKIN: Warm and dry. HEAD: Atraumatic. Normocephalic. CARDIOVASCULAR: Regular rate and rhythm. RESPIRATORY: No accessory muscle use. Decrease breath sounds right base to mid, decrease vocal fremitus,no wheezing. GASTROINTESTINAL: Abdomen soft, non-tender, nondistended. Hepatic and splenic margins not palpable. MUSCULOSKELETAL: Extremities without clubbing, cyanosis, or edema. No obvious deformities. NEUROLOGICAL: Awake and alert. No obvious cranial nerve deficits. Motor grossly within normal limits. Five out of 5 muscle strength in the arms and legs. Normal speech. PSYCHIATRIC: Appropriate mood and affect; insight and judgment normal. Procedures 11/22-extubation A/P Assessment and Plan 52 years old admitted for Recurrence Seizure due to non compliance with history of Seizure disorder - continue on Vimpat, Keppra- change to po in am if continues to be stable respiratory tidwell 11/21 EEG -no epileptiform features 11/21 CT brain- negative for intracranial process Neurology following - PT daily - neuro stable Respiratory Failure S/P extubation now on 4 LNC- no history of HAD, no smoker - mild tachypnea, some few inspiratory wheezes anteriorly - persistently decrease breath sounds-and vocal fremiti right base to mid- no effusion or layering on CXR - start IV Solumedrol 60 mg IV now then q 6 - duonebs q 6 scheduled and prn - on IV antibitoics - Pulmonary consult Pneumonia- likely aspiration - Persistent consolidation vs Atelectasis - non productive cough - US shows no pleural effusion - continue On IV antibiotics- now on Vancomycin and zosyn - Pulmonary consulted ? eval need for bronchoscopy Lactic acidemia-- resolved - 2nd seizures Electrolyte derangement- corrected monitor Hypokalemia- po Potassium x 2 days recheck in am PT eval and treat - Subcutaneous heparin q 8 for DVT prophylaxis - Pepcid PO BID Still on BiPAP, pending improvement. Annalee Marion MD Nov 26, 2017 14:44
--- NOTE | 2017-11-26 18:07 | ECHRPT ---
Indication: Shortness of breath CONCLUSIONS Normal left ventricular size and wall thickness. The left ventricular systolic function is normal with an estimated ejection fraction in the range of 60-65%. Left ventricular diastolic function parameters are normal. There is mild tricuspid valve regurgitation. The estimated pulmonary arterial pressure is 39 mmHg. BP: 116 / 58 HR: 74 Rhythm: Sinus MEASUREMENTS (Male / Female) Normal Values Technical Quality:Fair 2D ECHO LV Diastolic Diameter PLAX 4.8 cm 4.2 - 5.9 / 3.9 - 5.3 cm LV Systolic Diameter PLAX 3.5 cm IVS Diastolic Thickness 1.0 cm 0.6 - 1.0 / 0.6 - 0.9 cm LVPW Diastolic Thickness 1.0 cm 0.6 - 1.0 / 0.6 - 0.9 cm LV Relative Wall Thickness 0.4 LVOT Diameter 2.1 cm M-MODE Aortic Root Diameter MM 3.2 cm LA Systolic Diameter MM 2.6 cm LA Ao Ratio MM 0.8 AV Cusp Separation MM 2.2 cm DOPPLER AV Peak Velocity 128.0 cm/s AV Peak Gradient 6.6 mmHg LVOT Peak Velocity 117.0 cm/s LVOT Peak Gradient 5.5 mmHg AV Area Cont Eq pk 3.2 cm MR Peak Velocity 300.0 cm/s MR Peak Gradient 36.0 mmHg Mitral E Point Velocity 124.0 cm/s Mitral A Point Velocity 65.6 cm/s Mitral E to A Ratio 1.9 LV E' Lateral Velocity 11.5 cm/s Mitral E to LV E' Lateral Ratio 10.8 LV E' Septal Velocity 11.3 cm/s Mitral E to LV E' Septal Ratio 11.0 TR Peak Velocity 267.0 cm/s TR Peak Gradient 28.5 mmHg Right Atrial Pressure 10.0 mmHg Pulmonary Artery Systolic Pressu 38.5 mmHg Right Ventricular Systolic Press 38.5 mmHg PV Peak Velocity 122.0 cm/s PV Peak Gradient 6.0 mmHg FINDINGS LEFT VENTRICLE Normal left ventricular size and wall thickness. The left ventricular systolic function is normal wi th an estimated ejection fraction in the range of 60-65%. Left ventricular diastolic function parameters a re normal. RIGHT VENTRICLE Normal right ventricular size and systolic function. LEFT ATRIUM The left atrial size is normal. RIGHT ATRIUM The right atrial size is normal. ATRIAL SEPTUM Normal atrial septal thickness without atrial level shunting by limited color doppler interrogation. AORTA The aortic root and proximal ascending aorta are normal in size on limited imaging. MITRAL VALVE Structurally normal mitral valve. No mitral valve stenosis or regurgitation. AORTIC VALVE Trileaflet aortic valve. No aortic valve stenosis or regurgitation. TRICUSPID VALVE There is mild tricuspid valve regurgitation. The estimated pulmonary arterial pressure is 38.5 mmHg. PULMONARY VALVE No pulmonary valve regurgitation or stenosis. VESSELS The inferior vena cava is normal in size. PERICARDIUM No pericardial effusion. Dariana Chambers MD, FACC (Electronically Signed) Final Date:26 November 2017 18:06
--- NOTE | 2017-11-26 19:47 | HHI.PR ---
Subjective Remarks 52 YOWF with SZ, Bipolar, Bilat infilt Became more SOB last night Tr to I[facility] Put on BIPAP Now on NC Gets anxious which makes her breathing worse Objective Vital Signs Vital Signs Date Time Temp Pulse Resp B/P (MAP) Pulse Ox O2 Delivery O2 Flow Rate FiO2 11/26/17 18:00 73 11/26/17 16:00 78 11/26/17 16:00 98.1 78 36 134/78 (96) 98 11/26/17 14:00 80 11/26/17 12:00 63 11/26/17 12:00 98.7 58 30 152/77 (102) 100 11/26/17 11:59 100 11/26/17 10:00 72 11/26/17 08:53 99 11/26/17 08:00 97 11/26/17 08:00 98.8 92 35 136/81 (99) 98 11/26/17 07:00 99 Bi-Pap 30 11/26/17 06:00 58 11/26/17 04:40 97 30 11/26/17 04:00 97 Nasal Cannula 12.00 30 Bi-Pap 11/26/17 04:00 74 11/26/17 04:00 98.5 74 30 116/58 (77) 97 11/26/17 03:20 97 30 11/26/17 02:30 97 15.00 100 11/26/17 02:10 97.3 63 26 156/72 (100) 88 11/26/17 00:00 98.2 77 28 122/69 (86) 95 11/25/17 23:05 98 Nasal Cannula 4.00 11/25/17 20:00 97.5 90 24 128/68 (88) 95 I/O 11/25/17 11/25/17 11/25/17 11/26/17 11/26/17 11/26/17 07:00 15:00 23:00 07:00 15:00 23:00 Intake Total 500 ml 1412 ml 100 ml 915 ml 695 ml Balance 500 ml 1412 ml 100 ml 915 ml 695 ml Intake Oral 100 ml 480 ml IV Total 500 ml 1412 ml 915 ml 215 ml # Voids 1 2 6 # Bowel Movements 0 Result Diagram: 11/26/17 0326 11/26/17 1122 Objective Remarks GENERAL: MBMN WF, mild sob SKIN: Warm and dry. HEAD: Normocephalic. EYES: No scleral icterus. No injection or drainage. NECK: Supple, trachea midline. No JVD or lymphadenopathy. CARDIOVASCULAR: Regular rate and rhythm without murmurs, gallops, or rubs. RESPIRATORY: Breath sounds equal bilaterally. No accessory muscle use. GASTROINTESTINAL: Abdomen soft, non-tender, nondistended. MUSCULOSKELETAL: No cyanosis, or edema. BACK: Nontender without obvious deformity. No CVA tenderness. A/P Assessment and Plan Resp insuff Bilat infilt Sz disorder Bipolar disorder Anxiety PLAN: IV Solumedrol cont Abx Aerosol nebs Supplement 02 BIPAP prn CXR in AM Chun Roberts MD Nov 26, 2017 19:47
[2017-11-26] MEDS ORDERED: LORazepam 2 MG/ML VIAL IV PUSH ONE (23:45)
[2017-11-27] VITALS (18 sets, daily range): BP systolic 130–166; BP diastolic 69–83; PULSE 58–94; RESP 24–37; TEMP 97.8–99.1; O2SAT 30–100
[2017-11-27] MEDS: RESP: ALBUTEROL 2.5 MG/IPRATROPIUM 0.5 MG NEB (SCH) INH ×7 (00:01→23:49)
[2017-11-27] MEDS: PIPERACIL-TAZO 4.5 GM PREMIX 100 ML IV SCH ×4 (00:08→17:27)
[2017-11-27] MEDS: RESP: ALBUTEROL 2.5 MG/3 ML NEB (PRN) INH (02:00)
[2017-11-27] MEDS: LACOSAMIDE INJ 150 MG in SODIUM CHLORIDE 0.9% INJ 100 ML IV SCH ×2 (03:12→15:57)
[2017-11-27] MEDS: methylPREDNISolone SOD SUCC 40 MG/1 ML VIAL IV PUSH SCH ×4 (04:36→21:36)
[2017-11-27] MEDS: HEPARIN SODIUM - SQ 10,000 UNITS/ML VIAL SQ SCH ×3 (05:43→21:36)
[2017-11-27 06:02] LABS: BASOPHIL % 0.2 % (0.0-2.0); HEMATOCRIT 31.7 % (35.0-46.0); HEMOGLOBIN 10.7 GM/DL (11.6-15.3); LYMPH % 2.5 % (9.0-44.0); LYMPHOCYTE # 0.4 TH/MM3 (1.0-4.8); MEAN CELL VOLUME 85.3 FL (80.0-100.0); MEAN CORPUSCULAR HEMOGLOBIN 28.8 PG (27.0-34.0); MEAN CORPUSCULAR HGB CONC 33.7 % (32.0-36.0); MEAN PLATELET VOLUME 8.5 FL (7.0-11.0); MONO % 8.8 % (0.0-8.0); MONOCYTE # 1.3 TH/MM3 (0-0.9); NEUT % 88.5 % (16.0-70.0); PLATELET COUNT 245 TH/MM3 (150-450); RED BLOOD COUNT 3.72 MIL/MM3 (4.00-5.30); RED CELL DISTRIBUTION WIDTH 13.8 % (11.6-17.2); WHITE BLOOD COUNT 14.7 TH/MM3 (4.0-11.0)
--- NOTE | 2017-11-27 06:41 | RADRPT ---
EXAM DATE/TIME: 11/27/2017 05:43 [facility] COMPARISON: CHEST SINGLE AP, November 26, 2017, 3:08. INDICATIONS : Short of breath. MEDICAL HISTORY : Seizure. SURGICAL HISTORY : None. ENCOUNTER: Subsequent ACUITY: 1 week PAIN SCORE: Non-responsive. LOCATION: Bilateral chest FINDINGS: There is increasing consolidation in the left lung and to a lesser extent some scattered hazy infiltr ates in the right lung. No effusions. Cardiomegaly. Osseous structures are intact. CONCLUSION: Worsening aeration. Yan Perez MD on November 27, 2017 at 6:39 Board Certified Radiologist. This report was verified electronically.
[2017-11-27 06:43] LABS: BICARBONATE 27.1 MEQ/L (21.0-32.0); CREATININE 0.7 MG/DL (0.50-1.00)
[2017-11-27] MEDS: CHLORHEXIDINE 0.12% (ORAL KIT) 15 ML CUP MT SCH ×2 (08:00→20:00)
[2017-11-27 08:03] LABS: BANDS 10 % (0-6); LYMPHOCYTES 1 % (9-44); METAMYELOCYTES 1 % (0-1); MONOCYTES 9 % (0-8); MYELOCYTES 1 % (0-0); NEUTROPHIL # MANUAL DIFF 13.2 TH/MM3 (1.8-7.7); POLYS (SEG NEUTROPHILS) 78 % (16-70)
[2017-11-27 08:04] LABS: TOXIC VACUOLATION PRESENT (NONE SEEN)
[2017-11-27] MEDS ORDERED: PHARMACY ORDERED LAB ONE (08:45)
[2017-11-27] MEDS: DOCUSATE SODIUM 50 MG/SENNA 8.6 MG TAB PO SCH ×2 (09:00→20:10)
[2017-11-27] MEDS: SODIUM CHLORIDE 0.9% FLUSH 10 ML FLUSH IV FLUSH SCH ×2 (09:00→20:11)
--- NOTE | 2017-11-27 09:31 | HHI.PR ---
Subjective Remarks In bed agitated at time.s She was noted hallucinating overnight per nurse she was in the bath pulling her IVs. She is getting more sob when agitated,. Will as k psych for eval . Will add small dose xanax. She is currently on BiPAP. Satign well. She is calm. Says she gets agitated at times and is with sob. No fever or chills. Not eating much No n/v/d/c. Objective Vitals Vital Signs Date Time Temp Pulse Resp B/P (MAP) Pulse Ox O2 Delivery O2 Flow Rate FiO2 11/27/17 08:38 100 BiPAP 30 11/27/17 08:35 30 11/27/17 08:00 63 11/27/17 07:00 100 Bi-Pap 30 11/27/17 06:00 62 11/27/17 04:21 97 45 11/27/17 04:00 99.1 62 37 161/83 (109) 99 11/27/17 04:00 62 11/27/17 02:00 88 11/27/17 00:02 100 45 11/27/17 00:00 94 11/27/17 00:00 97.8 76 30 154/75 (101) 100 11/26/17 22:40 96 30 11/26/17 22:00 80 11/26/17 20:18 98 Nasal Cannula 3.00 11/26/17 20:00 98 11/26/17 20:00 98.5 98 25 136/69 (91) 87 11/26/17 19:00 87 Bi-Pap 30 11/26/17 18:00 73 11/26/17 16:00 78 11/26/17 16:00 98.1 78 36 134/78 (96) 98 11/26/17 14:00 80 11/26/17 12:00 63 11/26/17 12:00 98.7 58 30 152/77 (102) 100 11/26/17 11:59 100 11/26/17 10:00 72 I/O 11/26/17 11/26/17 11/26/17 11/27/17 11/27/17 11/27/17 07:00 15:00 23:00 07:00 15:00 23:00 Intake Total 100 ml 915 ml 695 ml 240 ml Balance 100 ml 915 ml 695 ml 240 ml Intake Oral 100 ml 480 ml 240 ml IV Total 915 ml 215 ml # Voids 2 6 9 # Bowel Movements 0 2 Result Diagram: 11/27/1717 11/27/17 05 Imaging Last Impressions Chest X-Ray 11/27/17 0600 Signed Impressions: Service Date/Time: November 05:43 - CONCLUSION: Worsening aeration. Yan Perez MD CT Angiography 11/25/17 0000 Signed Impressions: Service Date/Time: Saturday, November 25, 2017 10:11 - CONCLUSION: 1. No pulmonary emboli. 2. Diffuse bilateral pulmonary infiltrates with small effusions. Elvis Khan Jr., MD Chest CT 11/24/17 0000 Signed Impressions: Service Date/Time: Friday, November 24, 2017 22:12 - CONCLUSION: 1. Development of bilateral airspace disease over the last 4 days, upper lobe predominant with small pleural effusions. Differential diagnosis includes bronchopneumonia and aspiration. Also consider some form of hypersensitivity or drug reaction. Milton Mojica MD Chest Ultrasound 11/22/17 0000 Signed Impressions: Service Date/Time: Wednesday, November 22, 2017 15:25 - CONCLUSION: No pleural effusion Stewart Ny MD Head CT 11/21/17 0000 Signed Impressions: Service Date/Time: Tuesday, November 21, 2017 14:46 - CONCLUSION: Negative for acute process. Hosea Scott MD FACR Objective Remarks GENERAL: Pleasant 52 yo F, awake and alert and oriented x 3, appears tachypneic , on BiPAP SKIN: Warm and dry. HEAD: Atraumatic. Normocephalic. CARDIOVASCULAR: Regular rate and rhythm. RESPIRATORY: No accessory muscle use. Decrease breath sounds right base to mid, decrease vocal fremitus,no wheezing. GASTROINTESTINAL: Abdomen soft, non-tender, nondistended. Hepatic and splenic margins not palpable. MUSCULOSKELETAL: Extremities without clubbing, cyanosis, or edema. No obvious deformities. NEUROLOGICAL: Awake and alert. No obvious cranial nerve deficits. Motor grossly within normal limits. Five out of 5 muscle strength in the arms and legs. Normal speech. PSYCHIATRIC: Appropriate mood and affect; insight and judgment normal. Procedures 11/22-extubation A/P Assessment and Plan 52 years old admitted for Recurrence Seizure due to non compliance with history of Seizure disorder - continue on Vimpat, Keppra- change to po in am if continues to be stable respiratory tidwell 11/21 EEG -no epileptiform features 11/21 CT brain- negative for intracranial process Neurology following - PT daily - neuro stable Respiratory Failure S/P extubation now on 4 LNC mospty during the day however requiring BiPAP- no history of HAD, no smoker - mild tachypnea, some few inspiratory wheezes anteriorly - persistently decrease breath sounds-and vocal fremiti right base to mid- no effusion or layering on CXR - start IV Solumedrol 60 mg IV now then q 6 - duonebs q 6 scheduled and prn - on IV antibitoics - Pulmonary consult, ff Anxiety with h/o BD. Restyart home meds. Also added small dose of xanax prn. Consult psych Pneumonia- likely aspiration - Persistent consolidation vs Atelectasis - non productive cough - US shows no pleural effusion - continue On IV antibiotics- now on Vancomycin and zosyn - Pulmonary consulted ? eval need for bronchoscopy Lactic acidemia-- resolved - 2nd seizures Electrolyte derangement- corrected monitor Hypokalemia- po Potassium x 2 days recheck in am PT eval and treat - Subcutaneous heparin q 8 for DVT prophylaxis - Pepcid PO BID Still on BiPAP on/off, pending improvement. Agitated add xanax , will consider Seroquel. Consult psych Annalee Marion MD Nov 27, 2017 09:31
[2017-11-27] MEDS ORDERED: PILL SPLITTER OTHER PRN (10:00)
[2017-11-27] MEDS: FAMOTIDINE 20 MG TAB PO SCH ×2 (10:01→20:11)
[2017-11-27] MEDS: SODIUM CHLOR 0.9% 1000 ML INJ 1,000 ML IV SCH (10:03)
[2017-11-27] MEDS: VANCOMYCIN 1,500 MG/NS 500 ML IV SCH ×4 (11:15→20:58)
[2017-11-27] MEDS: levETIRAcetam INJ 100 ML IV SCH (11:15)
--- NOTE | 2017-11-27 20:04 | HHI.PR ---
Subjective Remarks 52 YOWF with SZ, Bipolar, Bilat infilt Became more SOB last night Now on NC Gets anxious which makes her breathing worse Has wheezing, insp and exp Mother at BS Objective Vital Signs Vital Signs Date Time Temp Pulse Resp B/P (MAP) Pulse Ox O2 Delivery O2 Flow Rate FiO2 11/27/17 18:00 80 11/27/17 16:00 72 11/27/17 16:00 98.5 72 34 154/81 (105) 97 11/27/17 14:00 79 11/27/17 12:00 58 11/27/17 12:00 98.7 58 29 166/79 (108) 100 11/27/17 11:09 99 30 11/27/17 10:00 63 11/27/17 08:38 100 BiPAP 30 11/27/17 08:35 30 11/27/17 08:00 63 11/27/17 08:00 98.8 60 34 145/75 (98) 100 11/27/17 07:00 100 Bi-Pap 30 11/27/17 06:00 62 11/27/17 04:21 97 45 11/27/17 04:00 99.1 62 37 161/83 (109) 99 11/27/17 04:00 62 11/27/17 02:00 88 11/27/17 00:02 100 45 11/27/17 00:00 94 11/27/17 00:00 97.8 76 30 154/75 (101) 100 11/26/17 22:40 96 30 11/26/17 22:00 80 11/26/17 20:18 98 Nasal Cannula 3.00 I/O 11/26/17 11/26/17 11/26/17 11/27/17 11/27/17 11/27/17 07:00 15:00 23:00 07:00 15:00 23:00 Intake Total 100 ml 915 ml 695 ml 240 ml 715 ml 455 ml Balance 100 ml 915 ml 695 ml 240 ml 715 ml 455 ml Intake Oral 100 ml 480 ml 240 ml 240 ml IV Total 915 ml 215 ml 715 ml 215 ml # Voids 2 6 9 7 # Bowel Movements 0 2 1 Result Diagram: 11/27/1751611/27/17516 Objective Remarks GENERAL: MBMN WF, mild sob SKIN: Warm and dry. HEAD: Normocephalic. EYES: No scleral icterus. No injection or drainage. NECK: Supple, trachea midline. No JVD or lymphadenopathy. CARDIOVASCULAR: Regular rate and rhythm without murmurs, gallops, or rubs. RESPIRATORY: Breath sounds equal bilaterally. No accessory muscle use. GASTROINTESTINAL: Abdomen soft, non-tender, nondistended. MUSCULOSKELETAL: No cyanosis, or edema. BACK: Nontender without obvious deformity. No CVA tenderness. A/P Assessment and Plan Resp insuff Bilat infilt Sz disorder Bipolar disorder Anxiety PLAN: IV Solumedrol cont Abx Aerosol nebs Supplement 02 BIPAP prn Racemic epi nebs DW pt and her mother at BS Chun Roberts MD Nov 27, 2017 20:04
[2017-11-27] MEDS ORDERED: RESP: RACEPINEPHRINE 2.25% 0.5 ML NEB ONE (20:05)
[2017-11-27] MEDS: ALPRAZolam 0.25 MG TAB PO PRN (20:10)
[2017-11-28] VITALS (16 sets, daily range): BP systolic 122–163; BP diastolic 62–83; PULSE 61–84; RESP 18–27; TEMP 98.2–98.9; O2SAT 92–100
[2017-11-28] MEDS: RESP: RACEPINEPHRINE 2.25% 0.5 ML NEB NEB PRN ×2 (00:14→03:24)
[2017-11-28] MEDS: levETIRAcetam INJ 100 ML IV SCH ×3 (00:40→23:57)
[2017-11-28] MEDS ORDERED: ALPRAZolam 0.25 MG TAB PO ONE (00:45)
[2017-11-28] MEDS ORDERED: methylPREDNISolone SOD SUCC 40 MG/1 ML VIAL IV PUSH ONE (00:45)
[2017-11-28] MEDS: PIPERACIL-TAZO 4.5 GM PREMIX 100 ML IV SCH ×4 (00:52→17:51)
[2017-11-28] MEDS: CHLORHEXIDINE GLUCONATE 2 % 1 PACK (2 CLOTHS) TOP SCH (04:00)
[2017-11-28] MEDS: LACOSAMIDE INJ 150 MG in SODIUM CHLORIDE 0.9% INJ 100 ML IV SCH ×2 (04:06→15:11)
[2017-11-28] MEDS: methylPREDNISolone SOD SUCC 40 MG/1 ML VIAL IV PUSH SCH ×4 (04:53→20:35)
[2017-11-28] MEDS: HEPARIN SODIUM - SQ 10,000 UNITS/ML VIAL SQ SCH ×3 (04:53→20:36)
[2017-11-28] MEDS: RESP: ALBUTEROL 2.5 MG/IPRATROPIUM 0.5 MG NEB (SCH) INH ×5 (07:25→23:12)
[2017-11-28] MEDS: CHLORHEXIDINE 0.12% (ORAL KIT) 15 ML CUP MT SCH ×2 (07:33→20:00)
[2017-11-28] MEDS: FAMOTIDINE 20 MG TAB PO SCH ×2 (08:06→20:35)
[2017-11-28] MEDS: DOCUSATE SODIUM 50 MG/SENNA 8.6 MG TAB PO SCH ×2 (08:06→20:35)
[2017-11-28] MEDS: VANCOMYCIN 1,500 MG/NS 500 ML IV SCH ×4 (08:07→20:36)
[2017-11-28] MEDS: SODIUM CHLORIDE 0.9% FLUSH 10 ML FLUSH IV FLUSH SCH ×2 (08:07→20:36)
[2017-11-28] MEDS: SODIUM CHLOR 0.9% 1000 ML INJ 1,000 ML IV SCH (09:02)
--- NOTE | 2017-11-28 11:41 | PD.PSY.CON ---
Provisional Diagnosis Admission Date Nov 20, 2017 at 21:41 [place] I. unspecified psychosis, history of bipolar disorder, mild to moderate intellectual disability [place] II. Deferred History of Present Illness Service Psychiatry Consult Requested By Medical team Reason for Consult Psychosis/anxiety Primary Care Physician Unknown HPI The patient is a 52 years old woman, domiciled with her mother in [place], single, no kids, unemployed, on SSI, with psychiatric history bipolar disorder, intellectual disability, no previous psychotic hospitalizations, no previous suicidal attempts, who is hospitalized due to Recurrence Seizure due to non compliance with history of Seizure disorder. Respiratory Failure S/P extubation now on 4 LNC mospty during the day however requiring BiPAP- no history of HAD, no smoker. Started IV Solumedrol 60 mg IV now then q 6. Aspiration pneumonia in IV antibiotics. Consulted to psychiatry due to anxiety and nighttime visual hallucinations. On psychiatric evaluation today the patient is calm, cooperative. She reports good mood, she says that she has been feeling much better today, right her mood as okay, denies depressive symptoms, denies anxiety, denies anhedonia, denies hopelessness, helplessness, denies suicidal and homicidal ideation, she denies visual and auditory hallucinations. Poor that she has not been anxious today, just today was exhibiting anxiety "because she was short of breath, and feeling much better now"patient says that she is looking forward to be discharged and go back home. She is fully oriented 3, no attention deficit, no fluctuation of consciousness at this moment. There is no loosening of association, no agitation, no paranoia, no disorganized speech or behavior. Now, as per nurse in charge, the patient yesterday was reported to be agitated, and having active visual hallucinations. Review of Systems Constitutional: DENIES: Diaphoretic episodes, Fatigue, Fever, Weight gain, Weight loss, Chills, Dizziness, Change in appetite, Night Sweats Endocrine: DENIES: Abnorml menstrual pattern, Heat/cold intolerance, Polydipsia , Polyuria, Polyphagia Eyes: DENIES: Blurred vision, Diplopia, Eye inflammation, Eye pain, Vision loss , Photosensitivity, Double Vision Ears, nose, mouth, throat: DENIES: Tinnitus, Hearing loss, Vertigo, Nasal discharge, Oral lesions, Throat pain, Hoarseness, Ear Pain, Running Nose, Epistaxis, Sinus Pain, Toothache, Odynophagia Respiratory: DENIES: Apneas, Cough, Snoring, Wheezing, Hemoptysis, Sputum production, Shortness of breath Cardiovascular: DENIES: Chest pain, Palpitations, Syncope, Dyspnea on Exertion , PND, Lower Extremity Edema, Orthopnea, Claudication Gastrointestinal: DENIES: Abdominal pain, Black stools, Bloody stools, Constipation, Diarrhea, Nausea, Vomiting, Difficulty Swallowing, Anorexia Genitourinary: DENIES: Abnormal vaginal bleeding, Dysmenorrhea, Dyspareunia, Sexual dysfunction, Urinary frequency, Urinary incontinence, Urgency, Hematuria , Dysuria, Nocturia, Vaginal discharge Musculoskeletal: DENIES: Joint pain, Muscle aches, Stiffness, Joint Swelling, Back pain, Neck pain Integumentary: DENIES: Abnormal pigmentation, Pruritus, Rash, Nail changes, Breast masses, Breast skin changes, Nipple discharge Hematologic/lymphatic: DENIES: Bruising, Lymphadenopathy Immunologic/allergic: DENIES: Eczema, Urticaria Neurologic: DENIES: Abnormal gait, Headache, Localized weakness, Paresthesias, Seizures, Speech Problems, Tremor, Poor Balance Psychiatric: COMPLAINS OF: Hallucinations, DENIES: Anxiety, Confusion, Mood changes, Depression, Agitation, Suicidal Ideation, Homicidal Ideation, Delusions Past Family Social History Coded Allergies: No Known Allergies (Verified Allergy, Unknown, 11/27/17) NKA Per pt and her mother 11/27/17 Reported Medications Lacosamide (Vimpat) 200 Mg Tab, 200 MG PO BID for Control Seizures, #60 TAB 0 Refills 11/20/17 Trazodone (Trazodone) 50 Mg Tab, 50 MG PO HS for Control Depression, #30 TAB 0 Refills 11/20/17 Levetiracetam (Keppra) 500 Mg Tab, 1500 MG HS for Control Seizures, #60 TAB 0 Refills 11/20/17 Levetiracetam (Keppra) 500 Mg Tab, 500 MG BID for Control Seizures, #60 TAB 0 Refills 11/20/17 Fluoxetine (Prozac) 40 Mg Cap, 40 MG PO DAILY, #30 CAP 0 Refills 11/20/17 Current Medications Medications (Trade) Dose Ordered Sig/Mayi Route Start Time Stop Time Status Last Admin Sodium Chloride 1,000 ml @ 42 mls/hr [id number] IV 11/20/17 22:15 11/25/17 00:36 (NS Flush) 2 ml UNSCH PRN IV FLUSH 11/20/17 22:15 11/25/17 00:28 (NS Flush) 2 ml BID IV FLUSH 11/21/17 09:00 11/28/17 08:07 (Tylenol) 650 mg Q6H PRN PO 11/20/17 22:15 (Ativan Inj) 1 mg Q1H PRN IV PUSH 11/20/17 22:15 (Zofran Inj) 4 mg Q6H PRN IV PUSH 11/20/17 22:15 (Heparin Inj) 5,000 units Q8H SQ 11/20/17 22:00 11/28/17 04:53 Miscellaneous Information 1 [id number] XX 11/20/17 22:15 (Chlorhexidine 2% Cloth) Taper DAILY@04 TOP 11/21/17 04:00 11/17/18 03:59 11/24/17 04:00 (Chlorhexidine 2% Cloth) 3 pack UNSCH PRN TOP 11/20/17 22:15 (Farnaz-Colace) 1 tab BID PO 11/21/17 09:00 11/28/17 08:06 (Milk Of Magnesia Liq) 30 ml Q12H PRN PO 11/20/17 22:15 (Senokot) 17.2 mg Q12H PRN PO 11/20/17 22:15 (Dulcolax Supp) 10 mg DAILY PRN RECTAL 11/20/17 22:15 (Lactulose Liq) 30 ml DAILY PRN PO 11/20/17 22:15 Levetriacetam 100 ml @ 400 mls/hr Q12H IV 11/20/17 23:00 11/28/17 10:12 (Peridex 0.12% Liq) 15 ml BID@08,20 MT 11/21/17 08:00 11/26/17 20:00 Lacosamide 150 mg/ Sodium Chloride 115 ml @ 115 mls/hr Q12H IV 11/21/17 03:00 11/28/17 04:06 (Pepcid) 20 mg BID PO 11/23/17 21:00 11/28/17 08:06 (Duoneb Neb) 1 ampule Q4HR NEB INH 11/25/17 04:00 11/28/17 11:09 (Albuterol Neb) 2.5 mg Q2HR NEB PRN INH 11/25/17 03:30 11/27/17 02:00 Pharmacy Profile Note 0 ml @ 0 mls/hr UNSCH OTHER 11/25/17 05:30 Piperacillin Sod/ Tazobactam Sod 100 ml @ 200 mls/hr Q6H IV 11/25/17 06:00 11/28/17 11:07 Vancomycin HCl 1500 mg/Sodium Chloride 515 ml @ 257.5 mls/ hr Q12H IV 11/25/17 21:00 11/28/17 08:07 (SoluMEDROL INJ) 40 mg Q6H IV PUSH 11/25/17 16:00 11/28/17 10:12 (Xanax) 0.125 mg Q6HR PRN PO 11/27/17 09:30 11/27/17 20:10 (Pill Splitter) 1 ea UNSCH PRN OTHER 11/27/17 10:00 Miscellaneous Information SPECIFIC LAB TO BE DRAWN:VANCOMYCIN TROUGH DATE TO... ONCE ONCE .XX 11/29/17 08:45 11/29/17 08:46 (Racepinephrine 2.25% Neb) 0.5 ml Q4HR NEB PRN NEB 11/27/17 20:15 11/28/17 03:24 Family Psych History Patient denies family psychiatric history Social History Patient was born and raised in [place], she lives with her mother in [place], she is single, no kids, unemployed, supported by [facility] Patient's Strengths (min. 2) Family support Physical Exam No psychomotor agitation or retardation, no tremors, no withdrawal symptoms, no EPS Vital Signs Vital Signs Date Time Temp Pulse Resp B/P (MAP) Pulse Ox O2 Delivery O2 Flow Rate FiO2 11/28/17 10:00 75 11/28/17 08:00 98.6 24 147/70 (95) 98 11/28/17 08:00 Nasal Cannula 6.00 11/28/17 07:00 30 Lab Results Test 11/28/17 01:25 Stool C. difficile Toxin (PCR) NEGATIVE Stl C. difficile Toxin Epiderm 027 PRESUMPTIVE NEGATIVE Date/Time Source Procedure Growth Status 11/25/17 06:10 Blood Peripheral Aerobic Blood Culture - Preliminary NO GROWTH IN 3 DAYS Resulted 11/25/17 06:10 Blood Peripheral Anaerobic Blood Culture - Preliminary NO GROWTH IN 3 DAYS Resulted 11/26/17 02:30 Nasal Aspirate Influenza Types A,B Antigen (ALEC) - Final NEGATIVE FOR FLU A AND B ANTIGEN.... Complete 11/25/17 08:25 Urine Catheterized Urine Urine Culture - Final NO GROWTH IN 48 HOURS. Complete Mental Status Examination Appearance: Appropriate Consciousness: Alert Orientation: x4 Motor Activity: Normal gait Speech: Unremarkable Language: Adequate Fund of Knowledge: Adequate Attention and Concentration: Adequate Memory: Unremarkable Mood: Appropriate Affect: Appropriate Thought Process & Associations: Intact Thought Content: Appropriate Hallucination Type: None, Visual Delusion Type: None Suicidal Ideation: No Suicidal Plan: No Suicidal Intention: No Homicidal Ideation: No Homicidal Plan: No Homicidal Intention: No Insight: Adequate Judgment: Adequate Assessment & Plan Problem List: (1) Unspecified psychosis ICD Codes: F29 - Unspecified psychosis not due to a substance or known physiological condition Assessment & Plan: At the moment of the psychiatric evaluation the patient presents calm, cooperative, pleasant. Affect, concrete kind of thinking. She denies depressive symptoms, she denies anxiety, she denies suicidal and homicidal ideation, she denies visual and auditory hallucinations at this moment. The patient is fully oriented 3, able to verbalize the reason of her hospitalization. She reports that she was anxious yesterday in the context of being out of breath. She does not seem to be insightful about episodes of perceptual disturbances/psychosis. Documented perceptual disturbances/visual hallucinations could be related with post ictal state of seizures, but also related with the steroids regimen. For her anxiety I would prefer gabapentin 300 mg twice a day, hydroxyzine 25 mg 3 times a day, or Benadryl 25 mg twice a day than benzodiazepines, benzodiazepines can induce paradoxical reactions inpatient with intellectual disability. Seroquel 25 mg twice a day could be helpful with anxiety and psychosis. She does not meet criteria for involuntary psychiatric admission at this moment. I will follow-up. Assessment & Plan Estimated LOS: Jose Mustafa MD Nov 28, 2017 11:41
--- NOTE | 2017-11-28 14:53 | HHI.PR ---
Subjective Remarks She sees a chair. Vital to her night. She is on 3 L by nasal cannula at this time. Less agitated and less anxious. Mother at bedside. Dr. salguero and she feels short of breath at this time. However she is satting well on 3 L. No nausea or vomiting no diarrhea or constipation. Her potassium is low because she was not eating much however day she was able to the old breakfast and lunch. Objective Vitals Vital Signs Date Time Temp Pulse Resp B/P (MAP) Pulse Ox O2 Delivery O2 Flow Rate FiO2 11/28/17 14:00 83 11/28/17 12:00 98.6 80 24 155/76 (102) 98 11/28/17 12:00 80 11/28/17 10:00 75 11/28/17 08:00 98.6 84 24 147/70 (95) 98 11/28/17 08:00 63 11/28/17 08:00 98 Nasal Cannula 6.00 11/28/17 07:29 93 Nasal Cannula 4.00 11/28/17 07:00 100 Bi-Pap 30 11/28/17 06:00 78 11/28/17 04:00 98.9 62 27 163/79 (107) 97 11/28/17 04:00 71 11/28/17 03:24 100 40 11/28/17 02:00 71 11/28/17 00:54 99 40 11/28/17 00:00 67 11/28/17 00:00 98.3 72 26 163/83 (109) 92 11/27/17 22:00 67 11/27/17 20:08 98 Nasal Cannula 6.00 11/27/17 20:00 98.9 92 24 130/69 (89) 93 11/27/17 20:00 67 11/27/17 19:00 Nasal Cannula 3.00 11/27/17 18:00 80 11/27/17 16:00 72 11/27/17 16:00 98.5 72 34 154/81 (105) 97 I/O 11/27/17 11/27/17 11/27/17 11/28/17 11/28/17 11/28/17 07:00 15:00 23:00 07:00 15:00 23:00 Intake Total 240 ml 715 ml 455 ml Balance 240 ml 715 ml 455 ml Intake Oral 240 ml 240 ml IV Total 715 ml 215 ml # Voids 9 7 9 # Bowel Movements 2 1 1 Result Diagram: 11/27/1751611/27/1717 Imaging Last Impressions Chest X-Ray 11/27/17 0600 Signed Impressions: Service Date/Time: November 05:43 - CONCLUSION: Worsening aeration. Yan Perez MD CT Angiography 11/25/17 0000 Signed Impressions: Service Date/Time: Saturday, November 25, 2017 10:11 - CONCLUSION: 1. No pulmonary emboli. 2. Diffuse bilateral pulmonary infiltrates with small effusions. Elvis Khan Jr., MD Chest CT 11/24/17 0000 Signed Impressions: Service Date/Time: Friday, November 24, 2017 22:12 - CONCLUSION: 1. Development of bilateral airspace disease over the last 4 days, upper lobe predominant with small pleural effusions. Differential diagnosis includes bronchopneumonia and aspiration. Also consider some form of hypersensitivity or drug reaction. Milton Mojica MD Chest Ultrasound 11/22/17 0000 Signed Impressions: Service Date/Time: Wednesday, November 22, 2017 15:25 - CONCLUSION: No pleural effusion Stewart Ny MD Head CT 11/21/17 0000 Signed Impressions: Service Date/Time: Tuesday, November 21, 2017 14:46 - CONCLUSION: Negative for acute process. Hosea Scott MD FACR Objective Remarks GENERAL: Pleasant 52 yo F, awake and alert and oriented x 3, appears in no distress, on nasal cannula SKIN: Warm and dry. HEAD: Atraumatic. Normocephalic. CARDIOVASCULAR: Regular rate and rhythm. RESPIRATORY: No accessory muscle use. Decrease breath sounds right base, decrease vocal fremitus, no wheezing. GASTROINTESTINAL: Abdomen soft, non-tender, nondistended. Hepatic and splenic margins not palpable. MUSCULOSKELETAL: Extremities without clubbing, cyanosis, or edema. No obvious deformities. NEUROLOGICAL: Awake and alert. No obvious cranial nerve deficits. Motor grossly within normal limits. Five out of 5 muscle strength in the arms and legs. Normal speech. PSYCHIATRIC: Appropriate mood and affect; insight and judgment normal. Procedures 11/22-extubation A/P Assessment and Plan 52 years old admitted for Recurrence Seizure due to non compliance with history of Seizure disorder - continue on Vimpat, Keppra- change to po in am if continues to be stable respiratory tidwell 11/21 EEG -no epileptiform features 11/21 CT brain- negative for intracranial process Neurology following - PT daily - neuro stable Respiratory Failure S/P extubation now on 4 LNC mospty during the day however requiring BiPAP- no history of HAD, no smoker - mild tachypnea, some few inspiratory wheezes anteriorly - persistently decrease breath sounds-and vocal fremiti right base to mid- no effusion or layering on CXR - start IV Solumedrol 60 mg IV now then q 6 - duonebs q 6 scheduled and prn - on IV antibitoics - Pulmonary consult, ff Anxiety with h/o BD. Restyart home meds. Also added small dose of xanax prn. Consult psych Pneumonia- likely aspiration - Persistent consolidation vs Atelectasis - non productive cough - US shows no pleural effusion - continue On IV antibiotics- now on Vancomycin and zosyn - Pulmonary consulted ? eval need for bronchoscopy Lactic acidemia-- resolved - 2nd seizures Electrolyte derangement- corrected monitor Hypokalemia- po Potassium recheck in am patient is eating better PT eval and treat - Subcutaneous heparin q 8 for DVT prophylaxis - Pepcid PO BID Was on BiPAP on/off, overnight, currently on nasal cannula satting well. Less Agitated continue xanax , also started Seroquel. Consult psych appreciate recommendations Discharge plan pending improvement and clearance by consultants. My transferred to [facility] floor if continues to improve and doesn't need BiPAP during the day Annalee Marion MD Nov 28, 2017 14:52
[2017-11-28] MEDS ORDERED: POTASSIUM CHLORIDE 10 MEQ CONTROLLED RELEASE TAB PO ONE (15:00)
--- NOTE | 2017-11-28 18:06 | HHI.PR ---
Subjective Remarks 52 YOWF with SZ, Bipolar, Bilat infilt Became more SOB last night Now on NC Gets anxious which makes her breathing worse Mother at BS Had a rough day but comfortable now Wheezing improved Objective Vital Signs Vital Signs Date Time Temp Pulse Resp B/P (MAP) Pulse Ox O2 Delivery O2 Flow Rate FiO2 11/28/17 16:00 98.6 61 25 122/62 (82) 100 11/28/17 16:00 61 11/28/17 14:00 83 11/28/17 12:00 98.6 80 24 155/76 (102) 98 11/28/17 12:00 80 11/28/17 10:00 75 11/28/17 08:00 98.6 84 24 147/70 (95) 98 11/28/17 08:00 63 11/28/17 08:00 98 Nasal Cannula 6.00 11/28/17 07:29 93 Nasal Cannula 4.00 11/28/17 07:00 100 Bi-Pap 30 11/28/17 06:00 78 11/28/17 04:00 98.9 62 27 163/79 (107) 97 11/28/17 04:00 71 11/28/17 03:24 100 40 11/28/17 02:00 71 11/28/17 00:54 99 40 11/28/17 00:00 67 11/28/17 00:00 98.3 72 26 163/83 (109) 92 11/27/17 22:00 67 11/27/17 20:08 98 Nasal Cannula 6.00 11/27/17 20:00 98.9 92 24 130/69 (89) 93 11/27/17 20:00 67 11/27/17 19:00 Nasal Cannula 3.00 I/O 11/27/17 11/27/17 11/27/17 11/28/17 11/28/17 11/28/17 07:00 15:00 23:00 07:00 15:00 23:00 Intake Total 240 ml 715 ml 455 ml Balance 240 ml 715 ml 455 ml Intake Oral 240 ml 240 ml IV Total 715 ml 215 ml # Voids 9 7 9 # Bowel Movements 2 1 1 Result Diagram: 11/27/1751611/27/17516 Objective Remarks GENERAL: MBMN WF, mild sob SKIN: Warm and dry. HEAD: Normocephalic. EYES: No scleral icterus. No injection or drainage. NECK: Supple, trachea midline. No JVD or lymphadenopathy. CARDIOVASCULAR: Regular rate and rhythm without murmurs, gallops, or rubs. RESPIRATORY: Breath sounds equal bilaterally. No accessory muscle use. GASTROINTESTINAL: Abdomen soft, non-tender, nondistended. MUSCULOSKELETAL: No cyanosis, or edema. BACK: Nontender without obvious deformity. No CVA tenderness. A/P Assessment and Plan Resp insuff Bilat infilt Sz disorder Bipolar disorder Anxiety PLAN: IV Solumedrol cont Abx Aerosol nebs Supplement 02 BIPAP prn Racemic epi nebs prn wheezing DW pt and her mother at BS Chun Roberts MD Nov 28, 2017 18:05
[2017-11-28] MEDS: QUEtiapine FUMARATE 25 MG TAB PO SCH (20:35)
[2017-11-29] VITALS (10 sets, daily range): BP systolic 124–161; BP diastolic 70–83; PULSE 62–96; RESP 13–23; TEMP 97.3–98.2; O2SAT 93–100
[2017-11-29] MEDS: PIPERACIL-TAZO 4.5 GM PREMIX 100 ML IV SCH ×4 (01:41→17:11)
[2017-11-29] MEDS: LACOSAMIDE INJ 150 MG in SODIUM CHLORIDE 0.9% INJ 100 ML IV SCH ×2 (02:59→15:00)
[2017-11-29] MEDS: methylPREDNISolone SOD SUCC 40 MG/1 ML VIAL IV PUSH SCH ×2 (03:00→09:24)
[2017-11-29] MEDS: CHLORHEXIDINE GLUCONATE 2 % 1 PACK (2 CLOTHS) TOP SCH (04:00)
[2017-11-29] MEDS: HEPARIN SODIUM - SQ 10,000 UNITS/ML VIAL SQ SCH ×3 (05:08→20:23)
[2017-11-29] MEDS: CHLORHEXIDINE 0.12% (ORAL KIT) 15 ML CUP MT SCH ×2 (08:00→20:00)
--- NOTE | 2017-11-29 08:24 | HHI.PR ---
Subjective Remarks Patient is in the chair in respiratory distress with wheezing. O2 dropping to 80s. She is using some respiratory accessory muscle. She denies chest pain, has some nonproductive cough. No n/v/d/c. Says no seizures overnight. Objective Vitals Vital Signs Date Time Temp Pulse Resp B/P (MAP) Pulse Ox O2 Delivery O2 Flow Rate FiO2 11/29/17 04:16 98.2 78 22 142/71 (94) 97 11/29/17 00:05 98.1 96 22 149/70 (96) 96 11/29/17 00:05 Nasal Cannula 3.00 11/29/17 00:00 73 11/28/17 23:14 96 Nasal Cannula 2.00 11/28/17 20:11 97 Nasal Cannula 2.00 11/28/17 20:00 84 11/28/17 20:00 98.2 73 18 142/69 (93) 95 11/28/17 18:00 83 11/28/17 16:00 98.6 61 25 122/62 (82) 100 11/28/17 16:00 61 11/28/17 14:00 83 11/28/17 12:00 98.6 80 24 155/76 (102) 98 11/28/17 12:00 80 11/28/17 10:00 75 I/O 11/28/17 11/28/17 11/28/17 11/29/17 11/29/17 11/29/17 07:00 15:00 23:00 07:00 15:00 23:00 Intake Total 598 ml 1010 ml 840 ml Balance 598 ml 1010 ml 840 ml Intake Oral 800 ml 240 ml IV Total 598 ml 210 ml 600 ml # Voids 9 11 2 # Bowel Movements 1 2 1 Result Diagram: 11/27/17 0517 11/27/17 0517 Imaging Last Impressions Chest X-Ray 11/27/17 0600 Signed Impressions: Service Date/Time: November 05:43 - CONCLUSION: Worsening aeration. Yan Perez MD CT Angiography 11/25/17 0000 Signed Impressions: Service Date/Time: Saturday, November 25, 2017 10:11 - CONCLUSION: 1. No pulmonary emboli. 2. Diffuse bilateral pulmonary infiltrates with small effusions. Elvis Khan Jr., MD Chest CT 2/12/18 0000 Signed Impressions: Service Date/Time: Friday, November 24, 2017 22:12 - CONCLUSION: 1. Development of bilateral airspace disease over the last 4 days, upper lobe predominant with small pleural effusions. Differential diagnosis includes bronchopneumonia and aspiration. Also consider some form of hypersensitivity or drug reaction. Milton Mojica MD Chest Ultrasound 11/22/17 0000 Signed Impressions: Service Date/Time: Wednesday, November 22, 2017 15:25 - CONCLUSION: No pleural effusion Stewart Ny MD Head CT 11/21/17 0000 Signed Impressions: Service Date/Time: Tuesday, November 21, 2017 14:46 - CONCLUSION: Negative for acute process. Hosea Scott MD FACR Objective Remarks GENERAL: Pleasant 52 yo F, awake and alert and oriented x 3, appears in respiratory distress, on nasal cannula SKIN: Warm and dry. HEAD: Atraumatic. Normocephalic. CARDIOVASCULAR: Regular rate and rhythm. RESPIRATORY: Some accessory muscle use, in respiratory distress. Decrease breath sounds right base, decrease vocal fremitus, wheezing scattered and coarse breath sounds, + nonproductive cough. GASTROINTESTINAL: Abdomen soft, non-tender, nondistended. MUSCULOSKELETAL: Extremities without clubbing, cyanosis, or edema. No obvious deformities. NEUROLOGICAL: Awake and alert. No obvious cranial nerve deficits. Motor grossly within normal limits. Five out of 5 muscle strength in the arms and legs. Normal speech. PSYCHIATRIC: Appropriate mood and affect; insight and judgment normal. Procedures 11/22-extubation A/P Assessment and Plan 52 years old admitted for Recurrence Seizure due to non compliance with history of Seizure disorder - continue on Vimpat, Keppra- change to po in am if continues to be stable respiratory tidwell 11/21 EEG -no epileptiform features 11/21 CT brain- negative for intracranial process Neurology following - PT daily - neuro stable Respiratory Failure S/P extubation now on 4 LNC mostly during the day however requiring BiPAP- no history of HAD, no smoker. Refused BiPAP overnight. 11/29/17 nopw with respiratory distress dessating at 80s while on NC with labored breathing, wheezing and nonproductive cough - mild tachypnea, some few inspiratory wheezes anteriorly - on IV Solumedrol 60 mg IV now then q 6. Give extra 60 IV solumedrol stat. Stop IVF, give lasix 40 mg IV stat, give stat duoneb, replace potassium with potassium bicarb and replace mag. Check stat cbc, cmp, bnp, mag and phos. Will check LA - duonebs q 4 scheduled and prn q2hrs - Stat CXR reviewed improved aeration - Continue on IV antibitoics - Pulmonary consult, ff Anxiety with h/o BD. Restart home meds. Also added small dose of xanax prn. Started on Seroquel. Consult psych, appreciate recommendations Pneumonia- likely aspiration - Persistent consolidation vs Atelectasis - non productive cough - US shows no pleural effusion - continue On IV antibiotics- now on Vancomycin and zosyn - Pulmonary consulted ? eval need for bronchoscopy - See above Lactic acidemia-- resolved - 2nd seizures. Will recheck LA Electrolyte derangement- corrected monitor Hypokalemia- Replaced. Add ICU electrolyte protocol PT eval and treat - Subcutaneous heparin q 8 for DVT prophylaxis - Pepcid PO BID Was on BiPAP on/off, overnight, currently on nasal cannula satting well. Less Agitated continue xanax , also started Seroquel. Consult psych also , ff, appreciate recommendations Discharge plan pending improvement and clearance by consultants. Keep in ICU for now Annalee Marion MD Nov 29, 2017 08:24
[2017-11-29] MEDS ORDERED: PHARMACY ORDERED LAB ONE (08:45)
[2017-11-29] MEDS: DOCUSATE SODIUM 50 MG/SENNA 8.6 MG TAB PO SCH ×2 (08:50→20:23)
[2017-11-29] MEDS: QUEtiapine FUMARATE 25 MG TAB PO SCH ×2 (08:51→20:38)
[2017-11-29] MEDS: ALPRAZolam 0.25 MG TAB PO PRN ×2 (08:51→14:58)
[2017-11-29] MEDS: FAMOTIDINE 20 MG TAB PO SCH ×2 (08:51→20:22)
[2017-11-29] MEDS: SODIUM CHLOR 0.9% 1000 ML INJ 1,000 ML IV SCH (08:52)
[2017-11-29] MEDS: SODIUM CHLORIDE 0.9% FLUSH 10 ML FLUSH IV FLUSH SCH ×2 (08:52→20:24)
[2017-11-29] MEDS: RESP: ALBUTEROL 2.5 MG/3 ML NEB (PRN) INH (09:10)
[2017-11-29] MEDS: VANCOMYCIN 1,500 MG/NS 500 ML IV SCH ×4 (09:25→20:24)
[2017-11-29 09:54] LABS: CREATININE 0.8 MG/DL (0.50-1.00)
[2017-11-29 09:56] LABS: VANCOMYCIN TROUGH 19.8 MCG/ML (5.0-10.0)
[2017-11-29] MEDS ORDERED: methylPREDNISolone SOD SUCC 125 MG/2 ML VIAL IV PUSH ONE ×2 (10:00→10:15)
[2017-11-29] MEDS ORDERED: RESP: ALBUTEROL 2.5 MG/IPRATROPIUM 0.5 MG NEB (PRN) NEB (10:00)
[2017-11-29] MEDS ORDERED: MAGNESIUM OXIDE 400 MG TAB PO PRN (10:00)
[2017-11-29] MEDS ORDERED: SODIUM PHOSPHATE INJ 30 MMOL in SODIUM CHLOR 0.9% 250 ML INJ 240 ML IV PRN (10:00)
[2017-11-29] MEDS ORDERED: POTASSIUM PHOSPHATE INJ 30 MMOL in SODIUM CHLOR 0.9% 250 ML INJ 250 ML IV PRN (10:00)
[2017-11-29] MEDS ORDERED: POTASSIUM CHLORIDE 10 MEQ CONTROLLED RELEASE TAB PO ONE (10:00)
[2017-11-29] MEDS ORDERED: POTASSIUM BICARBONATE 25 MEQ EFFERVESCENT TAB PO ONE (10:00)
[2017-11-29] MEDS ORDERED: POTASSIUM PHOSPHATE MONOBASIC 500 MG TAB PO PRN (10:00)
[2017-11-29] MEDS ORDERED: FUROSEMIDE 40 MG/4 ML VIAL IV PUSH ONE (10:00)
[2017-11-29] MEDS ORDERED: MAGNESIUM OXIDE 400 MG TAB PO ONE (10:00)
[2017-11-29] MEDS ORDERED: MAGNESIUM SULFATE INJ 4 GM in SODIUM CHLORIDE 0.9% INJ 92 ML IV PRN (10:00)
[2017-11-29] MEDS ORDERED: POTASSIUM PHOSPHATE MONOBASIC 500 MG TAB PO/TUBE PRN (10:00)
[2017-11-29] MEDS ORDERED: RESP: ALBUTEROL 2.5 MG/IPRATROPIUM 0.5 MG NEB (SCH) NEB ONE (10:00)
[2017-11-29] MEDS ORDERED: POTASSIUM CHLOR 20 MEQ PREMIX 100 ML IV PRN ×2 (10:00)
[2017-11-29] MEDS ORDERED: MAGNESIUM SULFATE INJ 2 GM in SODIUM CHLORIDE 0.9% INJ 96 ML IV PRN (10:00)
[2017-11-29] MEDS ORDERED: POTASSIUM CHLOR 40 MEQ PREMIX 100 ML IV PRN (10:00)
--- NOTE | 2017-11-29 10:42 | RADRPT ---
EXAM DATE/TIME: 11/29/2017 10:05 [facility] COMPARISON: CHEST SINGLE AP, November 27, 2017, 5:43. INDICATIONS : Shortness of breath and wheezing. MEDICAL HISTORY : Seizure. SURGICAL HISTORY : None. ENCOUNTER: Initial ACUITY: 1 day PAIN SCORE: 0/10 LOCATION: Bilateral chest FINDINGS: Compared to the prior exam there has been improved aeration of both lung castro. There continues to b e some interstitial edema present but this is definitely improved compared to the prior study. No sig nificant pleural effusions are seen. The heart size is stable. There is no pneumothorax. CONCLUSION: There is overall moderate improved aeration of both lung castro compared to the prior study. Efren Webster MD on November 29, 2017 at 10:40 Board Certified Radiologist. This report was verified electronically.
[2017-11-29] MEDS ORDERED: RESP: ALBUTEROL 2.5 MG/IPRATROPIUM 0.5 MG NEB (SCH) NEB (12:00)
[2017-11-29] MEDS: levETIRAcetam INJ 100 ML IV SCH (12:51)
[2017-11-29 13:02] LABS: BASOPHIL % 0.2 % (0.0-2.0); HEMATOCRIT 34.6 % (35.0-46.0); HEMOGLOBIN 11.8 GM/DL (11.6-15.3); LYMPH % 2.2 % (9.0-44.0); LYMPHOCYTE # 0.3 TH/MM3 (1.0-4.8); MEAN CELL VOLUME 84.5 FL (80.0-100.0); MEAN CORPUSCULAR HEMOGLOBIN 28.9 PG (27.0-34.0); MEAN CORPUSCULAR HGB CONC 34.2 % (32.0-36.0); MEAN PLATELET VOLUME 8.1 FL (7.0-11.0); MONO % 4.6 % (0.0-8.0); MONOCYTE # 0.7 TH/MM3 (0-0.9); PLATELET COUNT 241 TH/MM3 (150-450); RED CELL DISTRIBUTION WIDTH 13.9 % (11.6-17.2)
[2017-11-29 13:29] LABS: ALBUMIN 2.9 GM/DL (3.4-5.0); ALT (GPT) 56 U/L (10-53); AST (GOT) 31 U/L (15-37); BICARBONATE 33.3 MEQ/L (21.0-32.0); BLOOD UREA NITROGEN 18 MG/DL (7-18); CALCIUM 9.2 MG/DL (8.5-10.1); CHLORIDE 108 MEQ/L (98-107); CREATININE 0.73 MG/DL (0.50-1.00); GLOMERULAR FILTRATION RATE 83 ML/MIN (>89); GLUCOSE,RANDOM 136 MG/DL (74-106); MAGNESIUM 2.4 MG/DL (1.5-2.5); PHOSPHORUS 2.6 MG/DL (2.5-4.9); SODIUM (NA) 146 MEQ/L (136-145)
[2017-11-29 13:32] LABS: ALKALINE PHOSPHATASE 77 U/L (45-117); TOTAL BILIRUBIN ADULT 0.5 MG/DL (0.2-1.0); TOTAL PROTEIN 6.6 GM/DL (6.4-8.2)
[2017-11-29 13:35] LABS: BANDS 5 % (0-6); LYMPHOCYTES 4 % (9-44); METAMYELOCYTES 8 % (0-1); MONOCYTES 1 % (0-8); MYELOCYTES 3 % (0-0); NEUTROPHIL # MANUAL DIFF 14.3 TH/MM3 (1.8-7.7); POLYS (SEG NEUTROPHILS) 79 % (16-70)
[2017-11-29] MEDS: RESP: RACEPINEPHRINE 2.25% 0.5 ML NEB NEB PRN ×3 (17:07→23:22)
[2017-11-29] MEDS: RESP: ALBUTEROL 2.5 MG/IPRATROPIUM 0.5 MG NEB (SCH) NEB (19:51)
[2017-11-29] MEDS ORDERED: methylPREDNISolone SOD SUCC 40 MG/1 ML VIAL IV PUSH SCH (21:00)
[2017-11-29] MEDS: DEXAMETHASONE SOD PHOS 4 MG/ML VIAL IV PUSH SCH (22:58)
--- NOTE | 2017-11-29 23:05 | HHI.PR ---
Addendum to Inpatient Note Addendum Reason: Additional Documentation Additional Information Called by RN to assess patient. Patient was found unresponsive in respiratory distress, stridor with expiratory wheezes. She was not following commands. Racepinephrine neb was given, stat chest x-ray was ordered and patient was transferred to intensive care. I discussed patient with Dr. Daniels who suggested placing the patient on Decadron IV. He then evaluated the patient and resumed care. Consult was placed for firestopper technician. Francia Martinez Nov 29, 2017 23:05
--- NOTE | 2017-11-29 23:11 | HHI.CCPN ---
Subjective Remarks/Hospital Course 52-year-old female with a diagnosis of MR as well as seizure apparently she was not taking her seizure medications and started seizing. Per paramedics report she had nonstop seizures such as repeated facial spasm and arm twitching which is her focal seizure like presentation. She was given 2 of Versed en route did not break her seizure and was given 2 more en route and then they called for a second dose of Versed and then a third. She arrived to emergency department sedated but yet still having facial twitching and arm twitching and was intubated by ED attending for an airway protection. Subjective: 11/21 Patient remains intubated and sedated with Fentanyl. Afebrile. 11/22: Tmax 99.0. The patient was extubated at 0345 AM, O2 saturations ranging 91-92 %. Chest x-ray pending. Patient slightly lethargic responding to questions. 11/23: No acute events overnight. Patient more alert and conversant today. Yesterday chest x-ray read bilateral pleural effusions, ultrasound obtained in anticipation of thoracentesis, fluid bilateral lobes non-quantifiable most likely consolidation. Patient up out of bed O2 sat ranging 90-95%. 11/29: Critical care reconsulted for respiratory distress/suspected stridor/ wheezing. Patient has been having issues with respiratory distress off and on following extubation on 11/23. She has been followed by pulmonary doctor and age and has been on IV Solu-Medrol as well as bronchodilators. She has been refusing BiPAP. Patient was also evaluated by Dr. Villavicencio from psychiatry on 11/28 for bipolar disorder. Critical care team was reconsulted today for concern regarding worsening respiratory status with increasing stridor. I evaluated the patient immediately on being notified. She had been moved to [facility]. Patient reportedly had been having episodes of desaturation and was placed on nonrebreather facemask. ABG done at the time however revealed a PO2 of 305, PCO2 69. Patient was having good air movement on evaluation and woke up easily and was following commands. She did have audible inspiratory stridor as well as expiratory wheezing however there was a concern that this may be for secondary gain and voluntary. Objective Vital Signs Date Time Temp Pulse Resp B/P (MAP) Pulse Ox O2 Delivery O2 Flow Rate FiO2 11/29/17 20:00 97.3 79 20 133/72 (92) 100 11/29/17 19:51 Simple Mask 6.00 11/29/17 08:30 30 Intake and Output 11/29/17 11/29/17 11/30/17 08:00 16:00 00:00 Intake Total 840 ml 890 ml 700 ml Balance 840 ml 890 ml 700 ml Result Diagram: 11/29/17 1232 11/29/17 1232 Other Results Laboratory Tests Test 11/29/17 10:50 11/29/17 22:33 Blood Gas Puncture Site LT RADIAL Blood Gas Patient Temperature 98.6 Blood Gas HCO3 29 mmol/L (22-26) Blood Gas Base Excess 4.7 mmol/L (-2-2) Blood Gas Oxygen Saturation 97 % (90-100) Arterial Blood pH 7.43 (7.380-7.420) Arterial Blood Partial Pressure CO2 44 mmHg (38-42) Arterial Blood Partial Pressure O2 173 mmHg (61-120) Arterial Blood Oxygen Content 15.9 Vol % (12.0-20.0) Arterial Blood Carboxyhemoglobin 1.0 % (0-4) Arterial Blood Methemoglobin 1.1 % (0-2) Blood Gas Hemoglobin 11.4 G/DL (12.0-16.0) Oxygen Delivery Device NASAL CANNULA Blood Gas Liter Flow 4 L/M Imaging Last Impressions Chest X-Ray 11/22/17 0000 Signed Impressions: Service Date/Time: Wednesday, November 22, 2017 08:40 - CONCLUSION: Interval extubation with worsening lung exam. Atelectasis and right-sided pleural effusion. Left-sided pleural effusion, moderate in size. Azra Alas MD Chest Ultrasound 11/22/17 0000 Signed Impressions: Service Date/Time: Wednesday, November 22, 2017 15:25 - CONCLUSION: No pleural effusion Stewart Ny MD Head CT 11/21/17 0000 Signed Impressions: Service Date/Time: Tuesday, November 21, 2017 14:46 - CONCLUSION: Negative for acute process. Hosea Scott MD FACR Last Impressions Chest X-Ray 11/21/17 0600 Signed Impressions: Service Date/Time: Tuesday, November 21, 2017 03:59 - CONCLUSION: 1. Endotracheal tube and nasogastric tube in good position. Minimal basilar dependent atelectasis. Milton Mojica MD Procedures 11/22-extubation Objective Remarks GENERAL: Well-developed well-nourished female , laying in bed in minimal respiratory distress with question of stridor and wheezing SKIN: Warm and dry. HEAD: Normocephalic. EYES: No scleral icterus. No injection or drainage. NECK: Supple, trachea midline. No JVD or lymphadenopathy. CARDIOVASCULAR: Regular rate and normal rhythm without murmurs, gallops, or rubs. RESPIRATORY: Breath sounds equal bilaterally. No accessory muscle use. Questionable story stridor and expiratory wheezing though my impression was that some of this was voluntary. GASTROINTESTINAL: Abdomen soft, non-tender, nondistended. Normoactive bowel sounds MUSCULOSKELETAL: No cyanosis, or edema. BACK: Nontender without obvious deformity. NEURO EXAM: Drowsy, easily arousable, following commands, moving all 4 extremities. A/P Assessment and Plan Acute respiratory failure Questionable stridor/wheezing Pneumonia Seizure disorder Lactic acidemia- cleared, 2nd seizures Electrolyte derangement Leukocytosis Plan Neuro: 11/20 Loaded with fosphenytoin in the ED Continue with Rosamaria Loyat 11/21 EEG -no epileptiform features 11/21 CT brain- negative for intracranial process Neurology following Hold Xanax as this may be constipating to respiratory acidosis. Pulm: Bronchodilators scheduled and PRN Extubated 11/22 Chest x-ray shows bilateral infiltrates with no real change compared to previous chest x-rays Lung consolidation-on vancomycin/Zosyn IV. CV: Monitor HR and BP keep MAP>65mmHg Received racemic epinephrine. Switch Solu-Medrol to IV Decadron 4 mg IV every 6 hourly. Initiate BiPAP 12/5 FiO2 35%. Will add Precedex processes with anxiety and see if that helps with stridor/wheezing. Cardiovascular: Watch for hypotension. IV hydration. : Monitor renal function, electrolytes replacement per protocol. GI: Heart healthy diet On Pepcid for GI prophylaxis Zofran for nausea Bowel regimen ID: Monitor for signs of infections ( fever, WBC) Endo: SSI for glycemic control Heme: Monitor CBC DVT GI prophylaxis - Teds SCDs - Subcutaneous heparin - Pepcid PO BID Discussed with SECURITY AGENT. Discussed with Francia Martinez (hospitalist [facility]) Luis Daniels MD Nov 29, 2017 23:11
[2017-11-29] MEDS ORDERED: DEXMEDETOMIDINE INJ 200 MCG in SODIUM CHLORIDE 0.9% INJ 50 ML IV PRN (23:15)
[2017-11-29] MEDS ORDERED: DEXMEDETOMIDINE HCL 200 MCG/2 ML VIAL IV PUSH ONE (23:15)
--- NOTE | 2017-11-29 23:21 | RADRPT ---
EXAM DATE/TIME: 11/29/2017 22:58 [facility] COMPARISON: CHEST SINGLE AP, November 29, 2017, 10:05. INDICATIONS : Shortness of breath MEDICAL HISTORY : None. SURGICAL HISTORY : None. ENCOUNTER: Subsequent ACUITY: 1 week PAIN SCORE: Non-responsive. LOCATION: Bilateral chest FINDINGS: There is basilar and dependent opacity in the left lung. Minimal right basilar atelectasis. No effusi on. No pneumothorax. Heart size normal. CONCLUSION: 1. Basilar and dependent airspace disease on the left side. Minimal right basilar atelectasis. Findin gs similar to November 29. Milton Mojica MD on November 29, 2017 at 23:17 Board Certified Radiologist. This report was verified electronically.
[2017-11-30] VITALS (18 sets, daily range): BP systolic 120–172; BP diastolic 74–121; PULSE 64–88; RESP 12–34; TEMP 98.3–100.8; O2SAT 97–100
[2017-11-30] MEDS ORDERED: ETOMIDATE 40 MG/20 ML VIAL ONE (00:10)
[2017-11-30] MEDS ORDERED: NOREPINEPHRINE-DEXTROSE DRIP 250 ML IV ONE (00:20)
[2017-11-30] MEDS ORDERED: PROPOFOL 500 MG/50 ML INJ 50 ML ONE (00:27)
[2017-11-30] MEDS: PROPOFOL 1000 MG/100 ML INJ 100 ML IV PRN ×5 (00:45→18:08)
[2017-11-30] MEDS ORDERED: LABETALOL HCL 100 MG/20 ML VIAL IV PUSH PRN (01:00)
--- NOTE | 2017-11-30 01:00 | PD.PROCEDR ---
Procedure Note Procedure Procedure: Endotracheal intubation Preop diagnosis: Acute respiratory failure, respiratory arrest Postop diagnosis: Same Sedation used: Etomidate 20 mg, vecuronium 10 mg IV Procedure: Responded to CODE BLUE cardiac arrest code activation. Patient reportedly was on BiPAP and on being turned suddenly became blue cyanotic and dropped O2 sats to the 60s. She was transiently in PEA following which she was hypotensive. She was still having spontaneous respirations. Patient was preoxygenated with 100% oxygen via Ambu bag with bag mask ventilation, following induction of sedation and neuromuscular blockade, laryngoscopy was performed using a CMAC with good visualization of vocal cords. An 8 Hungarian ET tube was passed through the vocal cords under direct visualization up to the 23 centimeter sandip and after inflating cuff of ET tube, correct placement was confirmed using bagging with good color change on CO2 detector, 5 point auscultation and chest rise with ventilation. Patient was connected to mechanical ventilation. Patient tolerated the procedure well with no immediate complications noted. Postprocedure chest x-ray was ordered. Luis Daniels MD Nov 30, 2017 01:00
--- NOTE | 2017-11-30 01:01 | PD.PROCEDR ---
Central Line Procedure REASON FOR PROCEDURE Central venous access PROCEDURE PERFORMED Central line placement: Left subclavian vein CONSENT Informed consent for procedure was not obtained as this was an emergent procedure. ANESTHESIA Local injection of 1% Lidocaine DESCRIPTION OF THE PROCEDURE The patient was placed in supine, mild Trendelenburg position. The area was exposed and cleansed with ChloraPrep, times two. Large sterile drape was used to cover the patient, with the site exposed, under sterile conditions including cap, face mask, sterile gown, and sterile gloves. On single attempt, the introducer needle was inserted with negative pressure in syringe and venous flash was obtained. The guide wire was then advanced without any restriction and the needle was removed. The dilator was used without any complications. Using Seldinger technique a 20 cm antimicrobial coated triple lumen catheter was advanced over the guide wire to a depth of 18 centimeters. The guide wire was removed. All ports were aspirated with dark venous blood return and flushed easily with sterile saline. All ports were capped. Antibiotic disc was placed around central line at puncture site. The central line was secured to the skin with a stat lock. The area was bandaged with sterile see-through central line bandage. Postprocedure chest x-ray was ordered and will be reviewed when available. COMPLICATIONS: No apparent complications ESTIMATED BLOOD LOSS: Less than 2 cc. Luis Daniels MD Nov 30, 2017 01:01
--- NOTE | 2017-11-30 01:02 | RADRPT ---
EXAM DATE/TIME: 11/30/2017 00:38 [facility] COMPARISON: CHEST SINGLE AP, November 29, 2017, 22:58. INDICATIONS : Central line placement. MEDICAL HISTORY : None. SURGICAL HISTORY : None. ENCOUNTER: Initial ACUITY: 1 day PAIN SCORE: Non-responsive. LOCATION: Bilateral chest FINDINGS: Endotracheal tube tip is in the right mainstem bronchus. This should be withdrawn about 3.5 cm. NG ti p in stomach. A left central line in superior vena cava without pneumothorax. Basilar dependent airsp bev disease on the left. Right lung relatively clear. No significant effusion. CONCLUSION: 1. Endotracheal tube tip in right mainstem bronchus. This should be withdrawn about 3.5 cm. 2. Left central line in superior vena cava. NG tip in stomach. Milton Mojica MD on November 30, 2017 at 0:59 Board Certified Radiologist. This report was verified electronically.
[2017-11-30 01:07] LABS: INTERNATIONAL NORMALIZED RATIO 1.1 RATIO; PROTHROMBIN TIME - PATIENT 11.4 SEC (9.8-11.6)
[2017-11-30 01:08] LABS: BICARBONATE 28.5 MEQ/L (21.0-32.0); BLOOD UREA NITROGEN 18 MG/DL (7-18); CHLORIDE 108 MEQ/L (98-107); CREATININE 0.95 MG/DL (0.50-1.00); GLOMERULAR FILTRATION RATE 61 ML/MIN (>89); GLUCOSE,RANDOM 203 MG/DL (74-106); MAGNESIUM 2.4 MG/DL (1.5-2.5); PHOSPHORUS 5.5 MG/DL (2.5-4.9); SODIUM (NA) 147 MEQ/L (136-145)
[2017-11-30 01:11] LABS: TROPONIN I LESS THAN 0.02 NG/ML (0.02-0.05)
[2017-11-30] MEDS: levETIRAcetam INJ 100 ML IV SCH ×3 (01:18→21:50)
[2017-11-30 01:29] LABS: HEMATOCRIT 33.7 % (35.0-46.0); HEMOGLOBIN 11.2 GM/DL (11.6-15.3); MEAN CELL VOLUME 85.4 FL (80.0-100.0); MEAN CORPUSCULAR HEMOGLOBIN 28.5 PG (27.0-34.0); MEAN CORPUSCULAR HGB CONC 33.3 % (32.0-36.0); MEAN PLATELET VOLUME 8.2 FL (7.0-11.0); PLATELET COUNT 256 TH/MM3 (150-450); RED BLOOD COUNT 3.95 MIL/MM3 (4.00-5.30); RED CELL DISTRIBUTION WIDTH 14.1 % (11.6-17.2); WHITE BLOOD COUNT 18.8 TH/MM3 (4.0-11.0)
[2017-11-30] MEDS ORDERED: IOHEXOL 350 MG/ML 10 ML VIAL (for RAD DIAG) IVCONTRAST ONE (02:14)
--- NOTE | 2017-11-30 02:36 | RADRPT ---
EXAM DATE/TIME: 11/30/2017 01:58 [facility] COMPARISON: No previous studies available for comparison. INDICATIONS : Seizures. Post code. RADIATION DOSE: 66.18 CTDIvol (mGy) MEDICAL HISTORY : Seizures. SURGICAL HISTORY : None. ENCOUNTER: Initial ACUITY: 1 day PAIN SCALE: Non-responsive LOCATION: cranial TECHNIQUE: Multiple contiguous axial images were obtained of the head. Using automated exposure control and adj ustment of the mA and/or kV according to patient size, radiation dose was kept as low as reasonably a chievable to obtain optimal diagnostic quality images. DICOM format image data is available electro nically for review and comparison. FINDINGS: CEREBRUM: The ventricles are normal for age. No evidence of midline shift, mass lesion, hemorrhage or acute in farction. No extra-axial fluid collections are seen. POSTERIOR FOSSA: The cerebellum and brainstem are intact. The 4th ventricle is midline. The cerebellopontine angle i s unremarkable. EXTRACRANIAL: The visualized portion of the orbits is intact. SKULL: The calvaria is intact. No evidence of skull fracture. CONCLUSION: 1. No acute intracranial abnormalities. Milton Mojica MD on November 30, 2017 at 2:33 Board Certified Radiologist. This report was verified electronically.
--- NOTE | 2017-11-30 02:39 | RADRPT ---
EXAM DATE/TIME: 11/30/2017 02:12 [facility] COMPARISON: CT PULMONARY ANGIOGRAM, November 25, 2017, 10:11. INDICATIONS : Respiratory arrest. Elevated for emboli. IV CONTRAST: 80 cc Omnipaque 350 (iohexol) IV RADIATION DOSE: 15.14 CTDIvol (mGy) MEDICAL HISTORY : Seizures. SURGICAL HISTORY : None. ENCOUNTER: Initial ACUITY: 1 day PAIN SCALE: Non-responsive LOCATION: chest TECHNIQUE: Volumetric scanning of the chest was performed using a pulmonary embolism protocol MIP images were re constructed. Using automated exposure control and adjustment of the mA and/or kV according to patien t size, radiation dose was kept as low as reasonably achievable to obtain optimal diagnostic quality images. DICOM format image data is available electronically for review and comparison. Follow-up recommendations for detected pulmonary nodules are based at a minimum on nodule size and pa tient risk factors according to Fleischner Society Guidelines. FINDINGS: No filling defects to suggest pulmonary embolus. Endotracheal tube in good position. NG enters stomac h. Previous bilateral airspace disease especially in upper lobes has improved. Small left pleural effusi on. No pericardial effusion. No acute findings in the upper abdomen. NG tip in stomach. CONCLUSION: 1. Negative for pulmonary embolus. Endotracheal tube and nasogastric tube in good position. Improveme nt in bilateral upper lobe airspace disease since November 25. Milton Mojica MD on November 30, 2017 at 2:35 Board Certified Radiologist. This report was verified electronically.
[2017-11-30] MEDS: PIPERACIL-TAZO 4.5 GM PREMIX 100 ML IV SCH ×5 (02:43→23:54)
[2017-11-30 03:09] LABS: BILIRUBIN, URINE NEG (NEG); BLOOD, URINE TRACE (NEG); GLUCOSE,URINE 150 mg/dL (NEG); KETONE, URINE NEG (NEG); MUCUS URINE FEW /lpf (OCC); NITRITE,URINE NEG (NEG); PH, URINE 6.5 (5.0-8.5); SQUAMOUS EPITHELIAL CELL URINE <1 /hpf (0-5); URINE COLOR LIGHT-YELLOW (YELLW/STRAW); URINE LEUKOCYTE ESTERASE NEG (NEG)
[2017-11-30] MEDS: LACOSAMIDE INJ 150 MG in SODIUM CHLORIDE 0.9% INJ 100 ML IV SCH ×2 (03:32→15:13)
[2017-11-30] MEDS: SODIUM CHLOR 0.9% 1000 ML INJ 1,000 ML IV SCH ×2 (03:45→11:36)
[2017-11-30] MEDS: CHLORHEXIDINE GLUCONATE 2 % 1 PACK (2 CLOTHS) TOP SCH (04:00)
[2017-11-30 05:57] LABS: HEMATOCRIT 30.9 % (35.0-46.0); HEMOGLOBIN 10.5 GM/DL (11.6-15.3); MEAN CELL VOLUME 85.3 FL (80.0-100.0); MEAN CORPUSCULAR HGB CONC 33.9 % (32.0-36.0); MEAN PLATELET VOLUME 7.8 FL (7.0-11.0); PLATELET COUNT 212 TH/MM3 (150-450); RED BLOOD COUNT 3.62 MIL/MM3 (4.00-5.30); RED CELL DISTRIBUTION WIDTH 13.7 % (11.6-17.2); WHITE BLOOD COUNT 15.2 TH/MM3 (4.0-11.0)
[2017-11-30 06:27] LABS: BICARBONATE 32.2 MEQ/L (21.0-32.0); CALCIUM 8.3 MG/DL (8.5-10.1); CREATININE 0.76 MG/DL (0.50-1.00); MAGNESIUM 2.5 MG/DL (1.5-2.5)
[2017-11-30] MEDS: HEPARIN SODIUM - SQ 10,000 UNITS/ML VIAL SQ SCH ×3 (06:38→21:50)
[2017-11-30] MEDS: DEXAMETHASONE SOD PHOS 4 MG/ML VIAL IV PUSH SCH ×3 (06:38→21:48)
[2017-11-30] MEDS: CHLORHEXIDINE 0.12% (ORAL KIT) 15 ML CUP MT SCH ×4 (08:00→19:47)
[2017-11-30] MEDS: SODIUM CHLORIDE 0.9% FLUSH 10 ML FLUSH IV FLUSH SCH ×2 (09:00→20:41)
[2017-11-30] MEDS: RESP: ALBUTEROL 2.5 MG/IPRATROPIUM 0.5 MG NEB (SCH) NEB ×2 (09:09→20:53)
[2017-11-30] MEDS: FAMOTIDINE 20 MG TAB PO SCH ×2 (09:32→20:41)
[2017-11-30] MEDS: QUEtiapine FUMARATE 25 MG TAB PO SCH ×2 (09:32→20:41)
[2017-11-30] MEDS: DOCUSATE SODIUM 50 MG/SENNA 8.6 MG TAB PO SCH ×2 (09:32→20:41)
[2017-11-30] MEDS: VANCOMYCIN 1,500 MG/NS 500 ML IV SCH ×4 (10:25→20:41)
[2017-11-30 10:56] LABS: BANDS 4 % (0-6); LYMPHOCYTES 16 % (9-44); METAMYELOCYTES 1 % (0-1); MONOCYTES 9 % (0-8); MYELOCYTES 8 % (0-0); NEUTROPHIL # MANUAL DIFF 11.4 TH/MM3 (1.8-7.7); POLYS (SEG NEUTROPHILS) 62 % (16-70)
--- NOTE | 2017-11-30 10:58 | HHI.CCPN ---
Subjective Remarks/Hospital Course 52-year-old female with a diagnosis of MR as well as seizure apparently she was not taking her seizure medications and started seizing. Per paramedics report she had nonstop seizures such as repeated facial spasm and arm twitching which is her focal seizure like presentation. She was given 2 of Versed en route did not break her seizure and was given 2 more en route and then they called for a second dose of Versed and then a third. She arrived to emergency department sedated but yet still having facial twitching and arm twitching and was intubated by ED attending for an airway protection. Subjective: 11/21 Patient remains intubated and sedated with Fentanyl. Afebrile. 11/22: Tmax 99.0. The patient was extubated at 0345 AM, O2 saturations ranging 91-92 %. Chest x-ray pending. Patient slightly lethargic responding to questions. 11/23: No acute events overnight. Patient more alert and conversant today. Yesterday chest x-ray read bilateral pleural effusions, ultrasound obtained in anticipation of thoracentesis, fluid bilateral lobes non-quantifiable most likely consolidation. Patient up out of bed O2 sat ranging 90-95%. 11/29: Critical care reconsulted for respiratory distress/suspected stridor/ wheezing. Patient has been having issues with respiratory distress off and on following extubation on 11/23. She has been followed by pulmonary doctor and age and has been on IV Solu-Medrol as well as bronchodilators. She has been refusing BiPAP. Patient was also evaluated by Dr. Villavicencio from psychiatry on 11/28 for bipolar disorder. Critical care team was reconsulted today for concern regarding worsening respiratory status with increasing stridor. I evaluated the patient immediately on being notified. She had been moved to [facility]. Patient reportedly had been having episodes of desaturation and was placed on nonrebreather facemask. ABG done at the time however revealed a PO2 of 305, PCO2 69. Patient was having good air movement on evaluation and woke up easily and was following commands. She did have audible inspiratory stridor as well as expiratory wheezing however there was a concern that this may be for secondary gain and voluntary. 11/30: Lactic acid > 6 is consistent with seizure activity but remainder of physical exam findings from last evening may or may not be respiratory in nature. Good gas exchange now and minimal wheezing. Strong on spontaneous trials. I'll leave intubated overnight while we sort through some of these psychiatric issues. Objective Vital Signs Date Time Temp Pulse Resp B/P (MAP) Pulse Ox O2 Delivery O2 Flow Rate FiO2 11/30/17 09:09 99 35 11/30/17 06:00 74 11/30/17 04:00 99.0 20 138/85 (102) 11/29/17 23:00 Bi-Pap 11/29/17 19:51 6.00 Intake and Output 11/30/17 11/30/17 11/30/17 07:59 15:59 23:59 Intake Total 615 ml Output Total 1100 ml Balance -485 ml Result Diagram: 11/30/17 0535 11/30/17 0535 Other Results Laboratory Tests Test 11/29/17 22:33 11/30/17 01:30 Blood Gas Puncture Site RT RADIAL RT BRACHIAL Blood Gas Patient Temperature 98.6 98.6 Blood Gas HCO3 32 mmol/L (22-26) 28 mmol/L (22-26) Blood Gas Base Excess 5.9 mmol/L (-2-2) 5.1 mmol/L (-2-2) Blood Gas Oxygen Saturation 98 % (90-100) 98 % (90-100) Arterial Blood pH 7.29 (7.380-7.420) 7.50 (7.380-7.420) Arterial Blood Partial Pressure CO2 69 mmHg (38-42) 37 mmHg (38-42) Arterial Blood Partial Pressure O2 305 mmHg (61-120) 530 mmHg (61-120) Arterial Blood Oxygen Content 16.7 Vol % (12.0-20.0) 16.6 Vol % (12.0-20.0) Arterial Blood Carboxyhemoglobin 0.5 % (0-4) 0.8 % (0-4) Arterial Blood Methemoglobin 1.3 % (0-2) 1.2 % (0-2) Blood Gas Hemoglobin 11.6 G/DL (12.0-16.0) 11.0 G/DL (12.0-16.0) Oxygen Delivery Device NASAL CANNULA VENTILATOR Blood Gas Liter Flow 4 L/M Blood Gas Ventilator Setting PRVC/AC Blood Gas Inspired Oxygen 100 % Imaging Last Impressions Chest X-Ray 11/22/17 0000 Signed Impressions: Service Date/Time: Wednesday, November 22, 2017 08:40 - CONCLUSION: Interval extubation with worsening lung exam. Atelectasis and right-sided pleural effusion. Left-sided pleural effusion, moderate in size. Azra Alas MD Chest Ultrasound 11/22/17 0000 Signed Impressions: Service Date/Time: Wednesday, November 22, 2017 15:25 - CONCLUSION: No pleural effusion Stewart Ny MD Head CT 11/21/17 0000 Signed Impressions: Service Date/Time: Tuesday, November 21, 2017 14:46 - CONCLUSION: Negative for acute process. Hosea Scott MD FACR Last Impressions Chest X-Ray 11/21/17 0600 Signed Impressions: Service Date/Time: Tuesday, November 21, 2017 03:59 - CONCLUSION: 1. Endotracheal tube and nasogastric tube in good position. Minimal basilar dependent atelectasis. Milton Mojica MD Procedures 11/22-extubation Objective Remarks GENERAL: Well-developed well-nourished female, lightly sedated. SKIN: Warm and dry. HEAD: Normocephalic. EYES: No scleral icterus. No injection or drainage. NECK: Supple, trachea midline. Orally intubated. CARDIOVASCULAR: Regular rate and normal rhythm without murmurs, gallops, or rubs. No JVD. RESPIRATORY: Breath sounds equal bilaterally. No accessory muscle use. No adventitious sounds. GASTROINTESTINAL: Abdomen soft, non-tender, nondistended. Normoactive bowel sounds. No guarding. MUSCULOSKELETAL: No cyanosis, or edema. Well perfused.. NEURO EXAM: Drowsy, easily arousable, following commands, moving all 4 extremities. AMANDA. A/P Assessment and Plan Acute respiratory failure Questionable stridor/wheezing Pneumonia Seizure disorder Lactic acidemia- cleared, 2nd seizures Electrolyte derangement Leukocytosis Plan Neuro: 11/20 Loaded with fosphenytoin in the ED Continue with Keppra, Vimpat 11/21 EEG -no epileptiform features 11/21 CT brain- negative for intracranial process Neurology following Hold Xanax as this may be contributing to respiratory acidosis. Pulm: Bronchodilators scheduled and PRN Extubated 11/22 Chest x-ray shows bilateral infiltrates with no real change compared to previous chest x-rays Lung consolidation-on vancomycin/Zosyn IV. CV: Monitor HR and BP keep MAP>65mmHg Received racemic epinephrine. Switch Solu-Medrol to IV Decadron 4 mg IV every 6 hourly. Initiate BiPAP 12/5 FiO2 35%. Will add Precedex to help with anxiety and see if that helps with stridor/wheezing. Cardiovascular: Watch for hypotension. IV hydration. : Monitor renal function, electrolytes replacement per protocol. GI: Heart healthy diet On Pepcid for GI prophylaxis Zofran for nausea Bowel regimen ID: Monitor for signs of infections ( fever, WBC) Endo: SSI for glycemic control Heme: Monitor CBC DVT GI prophylaxis - Teds SCDs - Subcutaneous heparin - Pepcid PO BID Overall impression: Ventilate overnight, extubate in a.m. on precedex. Keyon العراقي MD Nov 30, 2017 10:58
[2017-12-01] VITALS (17 sets, daily range): BP systolic 101–125; BP diastolic 65–73; PULSE 56–74; RESP 17–20; TEMP 99–100.4; O2SAT 95–100
[2017-12-01] MEDS: LACOSAMIDE INJ 150 MG in SODIUM CHLORIDE 0.9% INJ 100 ML IV SCH ×2 (02:09→17:08)
[2017-12-01] MEDS: SODIUM CHLOR 0.9% 1000 ML INJ 1,000 ML IV SCH ×4 (02:09→19:45)
[2017-12-01] MEDS: PROPOFOL 1000 MG/100 ML INJ 100 ML IV PRN ×6 (02:10→22:32)
[2017-12-01] MEDS: CHLORHEXIDINE GLUCONATE 2 % 1 PACK (2 CLOTHS) TOP SCH (03:53)
[2017-12-01 04:58] LABS: CREATININE 0.69 MG/DL (0.50-1.00)
[2017-12-01] MEDS: DEXAMETHASONE SOD PHOS 4 MG/ML VIAL IV PUSH SCH ×3 (05:12→21:33)
[2017-12-01] MEDS: HEPARIN SODIUM - SQ 10,000 UNITS/ML VIAL SQ SCH ×3 (05:13→21:32)
[2017-12-01] MEDS: PIPERACIL-TAZO 4.5 GM PREMIX 100 ML IV SCH ×3 (05:13→18:13)
[2017-12-01] MEDS: CHLORHEXIDINE 0.12% (ORAL KIT) 15 ML CUP MT SCH ×4 (08:00→20:00)
[2017-12-01] MEDS: SODIUM CHLORIDE 0.9% FLUSH 10 ML FLUSH IV FLUSH SCH ×2 (08:57→21:00)
[2017-12-01] MEDS: FAMOTIDINE 20 MG TAB PO SCH ×2 (08:57→21:32)
[2017-12-01] MEDS: VANCOMYCIN 1,500 MG/NS 500 ML IV SCH ×4 (08:57→21:32)
[2017-12-01] MEDS: DOCUSATE SODIUM 50 MG/SENNA 8.6 MG TAB PO SCH ×2 (08:57→21:32)
[2017-12-01] MEDS: QUEtiapine FUMARATE 25 MG TAB PO SCH ×2 (09:00→21:32)
[2017-12-01] MEDS: RESP: ALBUTEROL 2.5 MG/IPRATROPIUM 0.5 MG NEB (SCH) NEB ×2 (09:04→20:22)
--- NOTE | 2017-12-01 09:47 | HHI.CCPN ---
Subjective Remarks/Hospital Course 52-year-old female with a diagnosis of MR as well as seizure apparently she was not taking her seizure medications and started seizing. Per paramedics report she had nonstop seizures such as repeated facial spasm and arm twitching which is her focal seizure like presentation. She was given 2 of Versed en route did not break her seizure and was given 2 more en route and then they called for a second dose of Versed and then a third. She arrived to emergency department sedated but yet still having facial twitching and arm twitching and was intubated by ED attending for an airway protection. Subjective: 11/21 Patient remains intubated and sedated with Fentanyl. Afebrile. 11/22: Tmax 99.0. The patient was extubated at 0345 AM, O2 saturations ranging 91-92 %. Chest x-ray pending. Patient slightly lethargic responding to questions. 11/23: No acute events overnight. Patient more alert and conversant today. Yesterday chest x-ray read bilateral pleural effusions, ultrasound obtained in anticipation of thoracentesis, fluid bilateral lobes non-quantifiable most likely consolidation. Patient up out of bed O2 sat ranging 90-95%. 11/29: Critical care reconsulted for respiratory distress/suspected stridor/ wheezing. Patient has been having issues with respiratory distress off and on following extubation on 11/23. She has been followed by pulmonary doctor and age and has been on IV Solu-Medrol as well as bronchodilators. She has been refusing BiPAP. Patient was also evaluated by Dr. Villavicencio from psychiatry on 11/28 for bipolar disorder. Critical care team was reconsulted today for concern regarding worsening respiratory status with increasing stridor. I evaluated the patient immediately on being notified. She had been moved to [facility]. Patient reportedly had been having episodes of desaturation and was placed on nonrebreather facemask. ABG done at the time however revealed a PO2 of 305, PCO2 69. Patient was having good air movement on evaluation and woke up easily and was following commands. She did have audible inspiratory stridor as well as expiratory wheezing however there was a concern that this may be for secondary gain and voluntary. 11/30: Lactic acid > 6 is consistent with seizure activity but remainder of physical exam findings from last evening may or may not be respiratory in nature. Good gas exchange now and minimal wheezing. Strong on spontaneous trials. I'll leave intubated overnight while we sort through some of these psychiatric issues. 12/01: No events over the night. She is on propofol at 50, arousable, following commands. On PS 10/5/28%, Vt 400's and RR 20's, doing well. Tmax 100.8, I/O 4265 /3500. ROS unobtainable, patient is intubated Objective Vital Signs Date Time Temp Pulse Resp B/P (MAP) Pulse Ox O2 Delivery O2 Flow Rate FiO2 12/01/17 09:14 28 12/01/17 09:06 98 12/01/17 07:00 Mechanical Ventilator 12/01/17 06:00 58 12/01/17 04:00 99.3 20 107/69 (82) 11/29/17 19:51 6.00 Intake and Output 12/01/17 12/01/17 12/02/17 08:00 16:00 00:00 Intake Total 2030 ml Output Total 1850 ml Balance 180 ml Result Diagram: 11/30/17 0535 12/01/17 0401 Imaging Last Impressions Head CT 11/30/17 0000 Signed Impressions: Service Date/Time: Thursday, November 30, 2017 01:58 - CONCLUSION: 1. No acute intracranial abnormalities. Milton Mojica MD Chest X-Ray 11/30/17 0000 Signed Impressions: Service Date/Time: Thursday, November 30, 2017 00:38 - CONCLUSION: 1. Endotracheal tube tip in right mainstem bronchus. This should be withdrawn about 3.5 cm. 2. Left central line in superior vena cava. NG tip in stomach. Milton Mojica MD CT Angiography 11/30/17 0000 Signed Impressions: Service Date/Time: Thursday, November 30, 2017 02:12 - CONCLUSION: 1. Negative for pulmonary embolus. Endotracheal tube and nasogastric tube in good position. Improvement in bilateral upper lobe airspace disease since November 25. Milton Mojica MD Chest CT 11/24/17 0000 Signed Impressions: Service Date/Time: Friday, November 24, 2017 22:12 - CONCLUSION: 1. Development of bilateral airspace disease over the last 4 days, upper lobe predominant with small pleural effusions. Differential diagnosis includes bronchopneumonia and aspiration. Also consider some form of hypersensitivity or drug reaction. Milton Mojica MD Chest Ultrasound 11/22/17 0000 Signed Impressions: Service Date/Time: Wednesday, November 22, 2017 15:25 - CONCLUSION: No pleural effusion Stewart Ny MD Procedures 11/22-extubation Objective Remarks GENERAL: Well-developed middle age lady, lightly sedated, arousable. SKIN: Warm and dry. HEAD: Normocephalic. EYES: No scleral icterus. No injection or drainage. Pupils equal and reactive. NECK: Supple, trachea midline. Orally intubated. CARDIOVASCULAR: Regular rate and normal rhythm without murmurs, gallops, or rubs. No JVD. RESPIRATORY: Breath sounds equal bilaterally. No accessory muscle use. No adventitious sounds. GASTROINTESTINAL: Abdomen soft, non-tender, nondistended. Normoactive bowel sounds. No guarding. MUSCULOSKELETAL: No cyanosis, or edema. Well perfused.. NEURO EXAM: Sedated, easily arousable, following commands, moves all 4 extremities. A/P Assessment and Plan 1. Acute hypoxic respiratory failure - improved, on lower FiO2 requirements 2. Questionable stridor/wheezing - now improved 3. Pneumonia - WBC trending down but had episode of fever over the night 4. Seizure disorder - not in SE 5. Lactic acidosis 6. Bipolar d/o Plan 1. Continue vent support, currently on PS 07/17. Will continue as tolerated and change to PRVC later today 2. I was considering extubating her but she has no air leak 3. Vent bundle and bronchodilators 4. On decadron 5. On Pip/tazo and Vanco since 11/25 6. Repeat lactic acid now 7. Antiepileptics per neurology 8. Start TF 9. GI/DVT prophylaxis No family present at bedside Mansoor Bernal MD Dec 01, 2017 09:47
[2017-12-01] MEDS: levETIRAcetam INJ 100 ML IV SCH ×2 (10:30→23:22)
[2017-12-01 11:53] LABS: ALBUMIN 2.2 GM/DL (3.4-5.0); ALKALINE PHOSPHATASE 65 U/L (45-117); ALT (GPT) 54 U/L (10-53); AST (GOT) 40 U/L (15-37); BICARBONATE 27.6 MEQ/L (21.0-32.0); BLOOD UREA NITROGEN 13 MG/DL (7-18); CHLORIDE 109 MEQ/L (98-107); CREATININE 0.82 MG/DL (0.50-1.00); GLOMERULAR FILTRATION RATE 73 ML/MIN (>89); GLUCOSE,RANDOM 86 MG/DL (74-106); SODIUM (NA) 146 MEQ/L (136-145); TOTAL BILIRUBIN ADULT 0.5 MG/DL (0.2-1.0); TOTAL PROTEIN 5.1 GM/DL (6.4-8.2)
[2017-12-01] MEDS: POTASSIUM CHLOR 40 MEQ PREMIX 100 ML IV PRN ×2 (15:09→18:13)
--- NOTE | 2017-12-01 19:13 | HHI.PR ---
Subjective Remarks 52 YOWF with SZ, Bipolar, Bilat infilt Weekend events noted Developed Rf, Intubated Sedated with Propofol Tolerates CPAP Objective Vital Signs Vital Signs Date Time Temp Pulse Resp B/P (MAP) Pulse Ox O2 Delivery O2 Flow Rate FiO2 12/01/17 18:00 69 12/01/17 16:59 98 28 12/01/17 16:00 62 12/01/17 16:00 99.0 62 18 125/71 (89) 97 12/01/17 16:00 28 12/01/17 14:00 65 12/01/17 12:06 97 28 12/01/17 12:00 28 12/01/17 12:00 58 12/01/17 12:00 99.0 58 19 107/65 (79) 96 12/01/17 10:00 62 12/01/17 09:14 28 12/01/17 09:06 98 28 12/01/17 08:00 57 12/01/17 08:00 28 12/01/17 08:00 99.3 56 20 123/71 (88) 97 12/01/17 07:00 Mechanical Ventilator 28 12/01/17 06:00 58 12/01/17 04:00 99.3 64 20 107/69 (82) 95 12/01/17 04:00 28 12/01/17 04:00 64 12/01/17 02:00 65 12/01/17 00:24 96 28 12/01/17 00:00 100.4 72 20 117/73 (88) 96 12/01/17 00:00 72 12/01/17 00:00 28 11/30/17 22:00 68 11/30/17 20:47 97 28 11/30/17 20:00 28 11/30/17 20:00 100.8 65 20 136/74 (94) 99 11/30/17 20:00 65 I/O 11/30/17 11/30/17 11/30/17 12/01/17 12/01/17 12/01/17 07:00 15:00 23:00 07:00 15:00 23:00 Intake Total 615 ml 1920 ml 315 ml 2030 ml 1915 ml 612 ml Output Total 1100 ml 1650 ml 1850 ml 0 ml 1100 ml Balance -485 ml 1920 ml -1335 ml 180 ml 1915 ml -488 ml IV Total 615 ml 1920 ml 315 ml 2030 ml 1915 ml 415 ml Tube Feeding 137 ml Other 60 ml Output Urine Total 1100 ml 1550 ml 1550 ml 1100 ml Gastric Drainage Total 100 ml 300 ml Tube Feeding Residual Discard 0 ml 0 ml # Bowel Movements 0 0 0 Result Diagram: 11/30/17 0535 12/01/17 1100 Objective Remarks GENERAL: MBMN WF, mild sob SKIN: Warm and dry. HEAD: Normocephalic. EYES: No scleral icterus. No injection or drainage. NECK: Supple, trachea midline. No JVD or lymphadenopathy. CARDIOVASCULAR: Regular rate and rhythm without murmurs, gallops, or rubs. RESPIRATORY: Breath sounds equal bilaterally. No accessory muscle use. GASTROINTESTINAL: Abdomen soft, non-tender, nondistended. MUSCULOSKELETAL: No cyanosis, or edema. BACK: Nontender without obvious deformity. No CVA tenderness. A/P Assessment and Plan Resp failure, on Vent Bilat infilt--improved Sz disorder Bipolar disorder Anxiety PLAN: Vent support IV Solumedrol cont Abx Aerosol nebs CPAP trial in AM Propofol for sedation Chun Roberts MD Dec 01, 2017 19:13
[2017-12-02] VITALS (19 sets, daily range): BP systolic 91–116; BP diastolic 51–70; PULSE 55–72; RESP 15–20; TEMP 98.4–99; O2SAT 93–100
[2017-12-02] MEDS: PIPERACIL-TAZO 4.5 GM PREMIX 100 ML IV SCH ×4 (00:40→17:07)
[2017-12-02] MEDS: LACOSAMIDE INJ 150 MG in SODIUM CHLORIDE 0.9% INJ 100 ML IV SCH ×2 (02:43→14:48)
[2017-12-02] MEDS: PROPOFOL 1000 MG/100 ML INJ 100 ML IV PRN ×5 (02:44→21:34)
[2017-12-02] MEDS: SODIUM CHLOR 0.9% 1000 ML INJ 1,000 ML IV SCH ×3 (03:45→18:09)
[2017-12-02] MEDS: CHLORHEXIDINE GLUCONATE 2 % 1 PACK (2 CLOTHS) TOP SCH (04:00)
[2017-12-02 05:06] LABS: AUTOMATED NEUTROPHIL # 13.9 TH/MM3 (1.8-7.7); BASOPHIL % 0.2 % (0.0-2.0); EOSINOPHIL # 0.1 TH/MM3 (0-0.4); EOSINOPHIL % 0.7 % (0.0-4.0); HEMATOCRIT 31.6 % (35.0-46.0); HEMOGLOBIN 10.5 GM/DL (11.6-15.3); LYMPH % 3.8 % (9.0-44.0); LYMPHOCYTE # 0.6 TH/MM3 (1.0-4.8); MEAN CELL VOLUME 85.6 FL (80.0-100.0); MEAN CORPUSCULAR HEMOGLOBIN 28.5 PG (27.0-34.0); MEAN CORPUSCULAR HGB CONC 33.3 % (32.0-36.0); MEAN PLATELET VOLUME 8.5 FL (7.0-11.0); MONO % 2.6 % (0.0-8.0); MONOCYTE # 0.4 TH/MM3 (0-0.9); NEUT % 92.7 % (16.0-70.0); PLATELET COUNT 182 TH/MM3 (150-450); RED BLOOD COUNT 3.69 MIL/MM3 (4.00-5.30); RED CELL DISTRIBUTION WIDTH 14.2 % (11.6-17.2); WHITE BLOOD COUNT 14.9 TH/MM3 (4.0-11.0)
[2017-12-02 05:24] LABS: AST (GOT) 40 U/L (15-37); BLOOD UREA NITROGEN 14 MG/DL (7-18); CALCIUM 7.9 MG/DL (8.5-10.1); CHLORIDE 110 MEQ/L (98-107); CREATININE 0.79 MG/DL (0.50-1.00); GLOMERULAR FILTRATION RATE 76 ML/MIN (>89); GLUCOSE,RANDOM 124 MG/DL (74-106); MAGNESIUM 2.4 MG/DL (1.5-2.5); SODIUM (NA) 144 MEQ/L (136-145)
[2017-12-02 05:28] LABS: ALKALINE PHOSPHATASE 68 U/L (45-117); ALT (GPT) 54 U/L (10-53); PHOSPHORUS 2.9 MG/DL (2.5-4.9); TOTAL BILIRUBIN ADULT 0.4 MG/DL (0.2-1.0)
[2017-12-02] MEDS: HEPARIN SODIUM - SQ 10,000 UNITS/ML VIAL SQ SCH ×3 (05:41→21:34)
[2017-12-02] MEDS: DEXAMETHASONE SOD PHOS 4 MG/ML VIAL IV PUSH SCH ×3 (05:41→21:34)
[2017-12-02] MEDS: RESP: ALBUTEROL 2.5 MG/IPRATROPIUM 0.5 MG NEB (SCH) NEB ×2 (07:46→20:24)
[2017-12-02] MEDS: CHLORHEXIDINE 0.12% (ORAL KIT) 15 ML CUP MT SCH ×4 (08:00→20:00)
[2017-12-02] MEDS ORDERED: PHARMACY ORDERED LAB ONE ×2 (08:45)
[2017-12-02 08:58] LABS: BANDS 9 % (0-6); LYMPHOCYTES 3 % (9-44); MONOCYTES 2 % (0-8); POLYS (SEG NEUTROPHILS) 85 % (16-70)
[2017-12-02] MEDS: VANCOMYCIN 1,500 MG/NS 500 ML IV SCH ×2 (09:00)
[2017-12-02] MEDS: SODIUM CHLORIDE 0.9% FLUSH 10 ML FLUSH IV FLUSH SCH ×2 (09:00→21:00)
[2017-12-02] MEDS: DOCUSATE SODIUM 50 MG/SENNA 8.6 MG TAB PO SCH ×2 (09:41→21:33)
[2017-12-02] MEDS: QUEtiapine FUMARATE 25 MG TAB PO SCH ×2 (09:41→21:38)
[2017-12-02] MEDS: FAMOTIDINE 20 MG TAB PO SCH ×2 (09:41→21:34)
[2017-12-02] MEDS: levETIRAcetam INJ 100 ML IV SCH ×2 (10:20→22:59)
--- NOTE | 2017-12-02 14:14 | HHI.CCPN ---
Subjective Remarks/Hospital Course 52-year-old female with a diagnosis of MR as well as seizure apparently she was not taking her seizure medications and started seizing. Per paramedics report she had nonstop seizures such as repeated facial spasm and arm twitching which is her focal seizure like presentation. She was given 2 of Versed en route did not break her seizure and was given 2 more en route and then they called for a second dose of Versed and then a third. She arrived to emergency department sedated but yet still having facial twitching and arm twitching and was intubated by ED attending for an airway protection. Subjective: 11/21 Patient remains intubated and sedated with Fentanyl. Afebrile. 11/22: Tmax 99.0. The patient was extubated at 0345 AM, O2 saturations ranging 91-92 %. Chest x-ray pending. Patient slightly lethargic responding to questions. 11/23: No acute events overnight. Patient more alert and conversant today. Yesterday chest x-ray read bilateral pleural effusions, ultrasound obtained in anticipation of thoracentesis, fluid bilateral lobes non-quantifiable most likely consolidation. Patient up out of bed O2 sat ranging 90-95%. 11/29: Critical care reconsulted for respiratory distress/suspected stridor/ wheezing. Patient has been having issues with respiratory distress off and on following extubation on 11/23. She has been followed by pulmonary doctor and age and has been on IV Solu-Medrol as well as bronchodilators. She has been refusing BiPAP. Patient was also evaluated by Dr. Villavicencio from psychiatry on 11/28 for bipolar disorder. Critical care team was reconsulted today for concern regarding worsening respiratory status with increasing stridor. I evaluated the patient immediately on being notified. She had been moved to [facility]. Patient reportedly had been having episodes of desaturation and was placed on nonrebreather facemask. ABG done at the time however revealed a PO2 of 305, PCO2 69. Patient was having good air movement on evaluation and woke up easily and was following commands. She did have audible inspiratory stridor as well as expiratory wheezing however there was a concern that this may be for secondary gain and voluntary. 11/30: Lactic acid > 6 is consistent with seizure activity but remainder of physical exam findings from last evening may or may not be respiratory in nature. Good gas exchange now and minimal wheezing. Strong on spontaneous trials. I'll leave intubated overnight while we sort through some of these psychiatric issues. 12/01: No events over the night. She is on propofol at 50, arousable, following commands. On PS 10//28%, Vt 400's and RR 20's, doing well. Tmax 100.8, I/O 4265 /3500. ROS unobtainable, patient is intubated 12/02: Tongue swelling precludes extubation today. Gas exchange close to normal. Objective Vital Signs Date Time Temp Pulse Resp B/P (MAP) Pulse Ox O2 Delivery O2 Flow Rate FiO2 12/02/17 12:00 28 12/02/17 12:00 55 12/02/17 12:00 98.4 16 91/57 (68) 98 12/02/17 07:00 Mechanical Ventilator 11/29/17 19:51 6.00 Intake and Output 12/02/17 12/02/17 12/03/17 08:00 16:00 00:00 Intake Total 757 ml Output Total 1125.0 ml 0 ml Balance -368.0 ml 0 ml Result Diagram: 12/02/17 0435 12/02/17 0435 Other Results Microbiology Date/Time Source Procedure Growth Status 11/30/17 06:11 Sputum Endotracheal Gram Stain - Final Complete 11/30/17 06:11 Sputum Endotracheal Sputum Culture - Final HEAVY GROWTH NORMAL RESPIRATORY LO Complete Laboratory Tests Test 12/02/17 05:38 Blood Gas Puncture Site LT RADIAL Blood Gas Patient Temperature 98.6 Blood Gas HCO3 25 mmol/L (22-26) Blood Gas Base Excess 2.2 mmol/L (-2-2) Blood Gas Oxygen Saturation 96 % (90-100) Arterial Blood pH 7.50 (7.380-7.420) Arterial Blood Partial Pressure CO2 33 mmHg (38-42) Arterial Blood Partial Pressure O2 117 mmHg (61-120) Arterial Blood Oxygen Content 14.1 Vol % (12.0-20.0) Arterial Blood Carboxyhemoglobin 1.0 % (0-4) Arterial Blood Methemoglobin 1.3 % (0-2) Blood Gas Hemoglobin 10.3 G/DL (12.0-16.0) Oxygen Delivery Device VENTILATOR Blood Gas Ventilator Setting CPAP Blood Gas Inspired Oxygen 28 % Imaging Last Impressions Head CT 11/30/17 0000 Signed Impressions: Service Date/Time: Thursday, November 30, 2017 01:58 - CONCLUSION: 1. No acute intracranial abnormalities. Milton Mojica MD Chest X-Ray 11/30/17 0000 Signed Impressions: Service Date/Time: Thursday, November 30, 2017 00:38 - CONCLUSION: 1. Endotracheal tube tip in right mainstem bronchus. This should be withdrawn about 3.5 cm. 2. Left central line in superior vena cava. NG tip in stomach. Milton Mojica MD CT Angiography 11/30/17 0000 Signed Impressions: Service Date/Time: Thursday, November 30, 2017 02:12 - CONCLUSION: 1. Negative for pulmonary embolus. Endotracheal tube and nasogastric tube in good position. Improvement in bilateral upper lobe airspace disease since November 25. Milton Mojica MD Chest CT 11/24/17 0000 Signed Impressions: Service Date/Time: Friday, November 24, 2017 22:12 - CONCLUSION: 1. Development of bilateral airspace disease over the last 4 days, upper lobe predominant with small pleural effusions. Differential diagnosis includes bronchopneumonia and aspiration. Also consider some form of hypersensitivity or drug reaction. Milton Mojica MD Chest Ultrasound 11/22/17 0000 Signed Impressions: Service Date/Time: Wednesday, November 22, 2017 15:25 - CONCLUSION: No pleural effusion Stewart Ny MD Procedures 11/22-extubation Objective Remarks GENERAL: Well-developed middle age lady, not sedated, arousable. SKIN: Warm and dry. HEAD: Normocephalic. Tongue with 3+ edema. EYES: No scleral icterus. No injection or drainage. Pupils equal and reactive. NECK: Supple, trachea midline. Orally intubated. CARDIOVASCULAR: Regular rate and normal rhythm without murmurs, gallops, or rubs. No JVD. RESPIRATORY: Breath sounds equal bilaterally. No accessory muscle use. No adventitious sounds. GASTROINTESTINAL: Abdomen soft, non-tender, nondistended. Normoactive bowel sounds. No guarding. MUSCULOSKELETAL: No cyanosis, or edema. Well perfused.. NEURO EXAM: Sedated, easily arousable, following commands, moves all 4 extremities. A/P Assessment and Plan 1. Acute hypoxic respiratory failure - improved, on lower FiO2 requirements 2. Questionable stridor/wheezing - now improved 3. Pneumonia - WBC trending down but had episode of fever over the night 4. Seizure disorder - not in SE 5. Lactic acidosis 6. Bipolar d/o Plan 1. Continue vent support, currently on PS 07/17. Will continue as tolerated and change to PRVC later today 2. I was considering extubating her but she has no air leak 3. Vent bundle and bronchodilators 4. On decadron 5. On Pip/tazo and Vanco since 11/25 6. Repeat lactic acid now 7. Antiepileptics per neurology 8. Start TF 9. GI/DVT prophylaxis Discussed with family at bedside. Keyon العراقي MD Dec 02, 2017 14:14
[2017-12-02] MEDS: POTASSIUM CHLORIDE 25 MEQ EFFERVESCENT TAB PO PRN (21:58)
[2017-12-03] VITALS (11 sets, daily range): BP systolic 98–115; BP diastolic 59–68; PULSE 50–72; RESP 16–20; TEMP 98.2–99; O2SAT 97–100
[2017-12-03] MEDS: PIPERACIL-TAZO 4.5 GM PREMIX 100 ML IV SCH ×4 (00:15→22:24)
[2017-12-03] MEDS: SODIUM CHLOR 0.9% 1000 ML INJ 1,000 ML IV SCH ×2 (02:34→11:30)
[2017-12-03] MEDS: LACOSAMIDE INJ 150 MG in SODIUM CHLORIDE 0.9% INJ 100 ML IV SCH ×2 (02:48→15:15)
[2017-12-03] MEDS: PROPOFOL 1000 MG/100 ML INJ 100 ML IV PRN (03:30)
[2017-12-03] MEDS: CHLORHEXIDINE GLUCONATE 2 % 1 PACK (2 CLOTHS) TOP SCH (03:46)
[2017-12-03 05:06] LABS: AUTOMATED NEUTROPHIL # 11.7 TH/MM3 (1.8-7.7); BASOPHIL % 0.3 % (0.0-2.0); EOSINOPHIL # 0.1 TH/MM3 (0-0.4); HEMATOCRIT 30.5 % (35.0-46.0); LYMPH % 4.7 % (9.0-44.0); LYMPHOCYTE # 0.6 TH/MM3 (1.0-4.8); MEAN CELL VOLUME 86.6 FL (80.0-100.0); MEAN CORPUSCULAR HEMOGLOBIN 28.4 PG (27.0-34.0); MEAN CORPUSCULAR HGB CONC 32.8 % (32.0-36.0); MEAN PLATELET VOLUME 9.1 FL (7.0-11.0); MONO % 4.4 % (0.0-8.0); MONOCYTE # 0.6 TH/MM3 (0-0.9); NEUT % 89.6 % (16.0-70.0); PLATELET COUNT 170 TH/MM3 (150-450); RED BLOOD COUNT 3.53 MIL/MM3 (4.00-5.30); RED CELL DISTRIBUTION WIDTH 14.3 % (11.6-17.2); WHITE BLOOD COUNT 13.1 TH/MM3 (4.0-11.0)
[2017-12-03 05:30] LABS: ALBUMIN 1.9 GM/DL (3.4-5.0); CALCIUM 7.3 MG/DL (8.5-10.1); CALCIUM-PROTEIN CORRECTED 8.6 MG/DL (8.5-10.1); CREATININE 0.72 MG/DL (0.50-1.00); MAGNESIUM 2.3 MG/DL (1.5-2.5); PHOSPHORUS 2.8 MG/DL (2.5-4.9); RANDOM VANCOMYCIN 13.3 COMMENT; TOTAL BILIRUBIN ADULT 0.2 MG/DL (0.2-1.0); TOTAL PROTEIN 4.8 GM/DL (6.4-8.2)
[2017-12-03] MEDS: DEXAMETHASONE SOD PHOS 4 MG/ML VIAL IV PUSH SCH (05:40)
[2017-12-03] MEDS: HEPARIN SODIUM - SQ 10,000 UNITS/ML VIAL SQ SCH ×3 (05:41→22:24)
[2017-12-03 07:45] LABS: BANDS 4 % (0-6); LYMPHOCYTES 5 % (9-44); METAMYELOCYTES 2 % (0-1); MONOCYTES 2 % (0-8); MYELOCYTES 3 % (0-0); NEUTROPHIL # MANUAL DIFF 12.2 TH/MM3 (1.8-7.7); POLYS (SEG NEUTROPHILS) 84 % (16-70)
[2017-12-03] MEDS: CHLORHEXIDINE 0.12% (ORAL KIT) 15 ML CUP MT SCH ×4 (08:00→20:00)
[2017-12-03] MEDS: SODIUM CHLORIDE 0.9% FLUSH 10 ML FLUSH IV FLUSH SCH ×2 (09:00→21:00)
[2017-12-03] MEDS: RESP: ALBUTEROL 2.5 MG/IPRATROPIUM 0.5 MG NEB (SCH) NEB (09:05)
--- NOTE | 2017-12-03 09:42 | HHI.CCPN ---
Subjective Remarks/Hospital Course 52-year-old female with a diagnosis of MR as well as seizure apparently she was not taking her seizure medications and started seizing. Per paramedics report she had nonstop seizures such as repeated facial spasm and arm twitching which is her focal seizure like presentation. She was given 2 of Versed en route did not break her seizure and was given 2 more en route and then they called for a second dose of Versed and then a third. She arrived to emergency department sedated but yet still having facial twitching and arm twitching and was intubated by ED attending for an airway protection. Subjective: 11/21 Patient remains intubated and sedated with Fentanyl. Afebrile. 11/22: Tmax 99.0. The patient was extubated at 0345 AM, O2 saturations ranging 91-92 %. Chest x-ray pending. Patient slightly lethargic responding to questions. 11/23: No acute events overnight. Patient more alert and conversant today. Yesterday chest x-ray read bilateral pleural effusions, ultrasound obtained in anticipation of thoracentesis, fluid bilateral lobes non-quantifiable most likely consolidation. Patient up out of bed O2 sat ranging 90-95%. 11/29: Critical care reconsulted for respiratory distress/suspected stridor/ wheezing. Patient has been having issues with respiratory distress off and on following extubation on 11/23. She has been followed by pulmonary doctor and age and has been on IV Solu-Medrol as well as bronchodilators. She has been refusing BiPAP. Patient was also evaluated by Dr. Villavicencio from psychiatry on 11/28 for bipolar disorder. Critical care team was reconsulted today for concern regarding worsening respiratory status with increasing stridor. I evaluated the patient immediately on being notified. She had been moved to [facility]. Patient reportedly had been having episodes of desaturation and was placed on nonrebreather facemask. ABG done at the time however revealed a PO2 of 305, PCO2 69. Patient was having good air movement on evaluation and woke up easily and was following commands. She did have audible inspiratory stridor as well as expiratory wheezing however there was a concern that this may be for secondary gain and voluntary. 11/30: Lactic acid > 6 is consistent with seizure activity but remainder of physical exam findings from last evening may or may not be respiratory in nature. Good gas exchange now and minimal wheezing. Strong on spontaneous trials. I'll leave intubated overnight while we sort through some of these psychiatric issues. 12/01: No events over the night. She is on propofol at 50, arousable, following commands. On PS 10/5/28%, Vt 400's and RR 20's, doing well. Tmax 100.8, I/O 4265 /3500. ROS unobtainable, patient is intubated 12/02: Tongue swelling precludes extubation today. Gas exchange close to normal. 12/03: Extubated this a.m. Breathing comfortably. No stridor. D/C decadron. Adjust antibiotics per Pulmonology. Watch closely for bronchospasm. Objective Vital Signs Date Time Temp Pulse Resp B/P (MAP) Pulse Ox O2 Delivery O2 Flow Rate FiO2 12/03/17 09:00 97 Nasal Cannula 3 12/03/17 06:00 50 12/03/17 04:11 28 12/03/17 04:00 98.2 16 99/60 (73) Intake and Output 12/03/17 12/03/17 12/03/17 07:59 15:59 23:59 Intake Total 2136 ml Output Total 900 ml Balance 1236 ml Result Diagram: 12/03/17 0450 12/03/17 0450 Imaging Last Impressions Head CT 11/30/17 0000 Signed Impressions: Service Date/Time: Thursday, November 30, 2017 01:58 - CONCLUSION: 1. No acute intracranial abnormalities. Milton Mojica MD Chest X-Ray 11/30/17 0000 Signed Impressions: Service Date/Time: Thursday, November 30, 2017 00:38 - CONCLUSION: 1. Endotracheal tube tip in right mainstem bronchus. This should be withdrawn about 3.5 cm. 2. Left central line in superior vena cava. NG tip in stomach. Milton Mojica MD CT Angiography 11/30/17 0000 Signed Impressions: Service Date/Time: Thursday, November 30, 2017 02:12 - CONCLUSION: 1. Negative for pulmonary embolus. Endotracheal tube and nasogastric tube in good position. Improvement in bilateral upper lobe airspace disease since November 25. Milton Mojica MD Chest CT 11/24/17 0000 Signed Impressions: Service Date/Time: Friday, November 24, 2017 22:12 - CONCLUSION: 1. Development of bilateral airspace disease over the last 4 days, upper lobe predominant with small pleural effusions. Differential diagnosis includes bronchopneumonia and aspiration. Also consider some form of hypersensitivity or drug reaction. Milton Mojica MD Chest Ultrasound 11/22/17 0000 Signed Impressions: Service Date/Time: Wednesday, November 22, 2017 15:25 - CONCLUSION: No pleural effusion Stewart Ny MD Procedures 11/22-extubation Objective Remarks GENERAL: Well-developed middle age lady, not sedated, arousable. SKIN: Warm and dry. HEAD: Normocephalic. Tongue with 1+ edema. EYES: No scleral icterus. No injection or drainage. Pupils equal and reactive. NECK: Supple, trachea midline. No stridor. CARDIOVASCULAR: Regular rate and normal rhythm without murmurs, gallops, or rubs. No JVD. RESPIRATORY: Breath sounds equal bilaterally. No accessory muscle use. No adventitious sounds. GASTROINTESTINAL: Abdomen soft, non-tender, nondistended. Normoactive bowel sounds. No guarding. MUSCULOSKELETAL: No cyanosis, or edema. Well perfused.. NEURO EXAM: Alert, interactive, following commands, moves all 4 extremities. A/P Assessment and Plan 1. Acute hypoxic respiratory failure - improved, on lower FiO2 requirements 2. Questionable stridor/wheezing - now improved 3. Pneumonia - WBC trending down but had episode of fever over the night 4. Seizure disorder - not in SE 5. Lactic acidosis 6. Bipolar d/o Plan 1. Extubate. 2. Nebs. 4. On decadron, d/c. 5. On Pip/tazo and Vanco since 11/25 7. Antiepileptics per neurology 9. GI/DVT prophylaxis Discussed with mother at bedside. Keyon العراقي MD Dec 03, 2017 09:42
[2017-12-03] MEDS: DOCUSATE SODIUM 50 MG/SENNA 8.6 MG TAB PO SCH ×2 (10:16→22:23)
[2017-12-03] MEDS: QUEtiapine FUMARATE 25 MG TAB PO SCH ×2 (10:16→22:23)
[2017-12-03] MEDS: FAMOTIDINE 20 MG TAB PO SCH ×2 (10:16→22:23)
[2017-12-03] MEDS: levETIRAcetam INJ 100 ML IV SCH ×2 (11:19→22:24)
[2017-12-03] MEDS ORDERED: VANCOMYCIN 1,500 MG/NS 500 ML IV SCH ×2 (13:00)
[2017-12-04] VITALS (7 sets, daily range): BP systolic 106–118; BP diastolic 61–72; PULSE 64–79; RESP 15–25; TEMP 98.1–99.8; O2SAT 91–100
[2017-12-04] MEDS: LACOSAMIDE INJ 150 MG in SODIUM CHLORIDE 0.9% INJ 100 ML IV SCH ×2 (03:13→15:26)
[2017-12-04] MEDS: CHLORHEXIDINE GLUCONATE 2 % 1 PACK (2 CLOTHS) TOP SCH (04:00)
[2017-12-04] MEDS: HEPARIN SODIUM - SQ 10,000 UNITS/ML VIAL SQ SCH ×3 (05:21→21:33)
[2017-12-04 05:38] LABS: AUTOMATED NEUTROPHIL # 10.2 TH/MM3 (1.8-7.7); BASOPHIL % 0.1 % (0.0-2.0); EOSINOPHIL # 0.3 TH/MM3 (0-0.4); EOSINOPHIL % 2.5 % (0.0-4.0); HEMATOCRIT 33.2 % (35.0-46.0); HEMOGLOBIN 11.1 GM/DL (11.6-15.3); LYMPH % 6.9 % (9.0-44.0); LYMPHOCYTE # 0.9 TH/MM3 (1.0-4.8); MEAN CELL VOLUME 86.6 FL (80.0-100.0); MEAN CORPUSCULAR HEMOGLOBIN 28.9 PG (27.0-34.0); MEAN CORPUSCULAR HGB CONC 33.3 % (32.0-36.0); MEAN PLATELET VOLUME 9.1 FL (7.0-11.0); NEUT % 82.5 % (16.0-70.0); PLATELET COUNT 181 TH/MM3 (150-450); RED BLOOD COUNT 3.83 MIL/MM3 (4.00-5.30); RED CELL DISTRIBUTION WIDTH 14.5 % (11.6-17.2); WHITE BLOOD COUNT 12.4 TH/MM3 (4.0-11.0)
[2017-12-04 06:07] LABS: ALBUMIN 2.2 GM/DL (3.4-5.0); ALKALINE PHOSPHATASE 77 U/L (45-117); ALT (GPT) 79 U/L (10-53); AST (GOT) 75 U/L (15-37); BICARBONATE 26.3 MEQ/L (21.0-32.0); BLOOD UREA NITROGEN 12 MG/DL (7-18); CALCIUM 8.3 MG/DL (8.5-10.1); CHLORIDE 115 MEQ/L (98-107); CREATININE 0.77 MG/DL (0.50-1.00); GLOMERULAR FILTRATION RATE 78 ML/MIN (>89); GLUCOSE,RANDOM 89 MG/DL (74-106); MAGNESIUM 2.4 MG/DL (1.5-2.5); PHOSPHORUS 4.1 MG/DL (2.5-4.9); SODIUM (NA) 149 MEQ/L (136-145); TOTAL BILIRUBIN ADULT 0.3 MG/DL (0.2-1.0); TOTAL PROTEIN 5.4 GM/DL (6.4-8.2)
--- NOTE | 2017-12-04 06:48 | RADRPT ---
EXAM DATE/TIME: 12/04/2017 05:27 [place] COMPARISON: CT PULMONARY ANGIOGRAM, November 30, 2017, 2:12. CHEST SINGLE AP, November 30, 2017, 0:38. INDICATIONS : Short of breath. MEDICAL HISTORY : None. SURGICAL HISTORY : None. ENCOUNTER: Subsequent ACUITY: 1 week PAIN SCORE: Non-responsive. LOCATION: Bilateral chest FINDINGS: A single AP portable semierect view of the chest was obtained and again demonstrates patchy airspace disease in the left lung which appears mildly increased at the lung base with obscuration of the left hemidiaphragm now noted. The left costophrenic angle appears blunted. There is mild patchy opacity r ight lung base. The patient has been next abated and the nasogastric tube has been removed. The heart size at the upper limits of normal. The bony thorax is intact with multiple overlying electrocardiog carrie leads. CONCLUSION: 1. Interval increase in patchy opacity at the left lung base. The left costophrenic angle now appears blunted. 2. New mild patchy opacity at the right lung base. 3. Interval extubation and removal of nasogastric tube. Malvin Waters MD on December 04, 2017 at 6:45 Board Certified Radiologist. This report was verified electronically.
[2017-12-04 07:59] LABS: BANDS 3 % (0-6); LYMPHOCYTES 7 % (9-44); METAMYELOCYTES 5 % (0-1); MONOCYTES 7 % (0-8); MYELOCYTES 3 % (0-0); NEUTROPHIL # MANUAL DIFF 10.5 TH/MM3 (1.8-7.7); POLYS (SEG NEUTROPHILS) 74 % (16-70)
[2017-12-04] MEDS: CHLORHEXIDINE 0.12% (ORAL KIT) 15 ML CUP MT SCH ×4 (08:00→20:00)
[2017-12-04] MEDS: SODIUM CHLORIDE 0.9% FLUSH 10 ML FLUSH IV FLUSH SCH ×2 (08:58→21:33)
[2017-12-04] MEDS: QUEtiapine FUMARATE 25 MG TAB PO SCH ×2 (08:58→21:32)
[2017-12-04] MEDS: PIPERACIL-TAZO 4.5 GM PREMIX 100 ML IV SCH (08:58)
[2017-12-04] MEDS: DOCUSATE SODIUM 50 MG/SENNA 8.6 MG TAB PO SCH ×2 (08:58→21:32)
[2017-12-04] MEDS: FAMOTIDINE 20 MG TAB PO SCH ×2 (08:58→21:32)
[2017-12-04] MEDS: SODIUM CHLOR 0.9% 1000 ML INJ 1,000 ML IV SCH (10:56)
[2017-12-04] MEDS: levETIRAcetam INJ 100 ML IV SCH ×2 (10:56→22:32)
--- NOTE | 2017-12-04 14:38 | HHI.PR ---
Subjective Remarks In the chair appears in nad. No n/v/d/c. No seizures overnight. Poor insight and judgement. No cough. Objective Vitals Vital Signs Date Time Temp Pulse Resp B/P (MAP) Pulse Ox O2 Delivery O2 Flow Rate FiO2 12/04/17 12:00 98.1 66 15 111/67 (82) 100 12/04/17 08:00 98.2 67 19 118/72 (87) 100 12/04/17 04:36 98.4 70 20 118/70 (86) 97 12/04/17 00:33 99.8 65 20 116/62 (80) 98 12/03/17 20:53 98.4 72 20 115/59 (77) 98 12/03/17 20:12 99 Nasal Cannula 2.00 12/03/17 19:00 100 Nasal Cannula 2.00 12/03/17 16:00 99.0 66 16 110/66 (81) 100 I/O 12/03/17 12/03/17 12/03/17 12/04/17 12/04/17 12/04/17 07:00 15:00 23:00 07:00 15:00 23:00 Intake Total 2236 ml 300 ml 240 ml Output Total 900 ml 1450 ml 2500 ml 325 ml Balance 1336 ml 300 ml -1210 ml -2500 ml -325 ml Intake Oral 240 ml IV Total 1415 ml 300 ml Tube Feeding 771 ml Other 50 ml Output Urine Total 900 ml 1450 ml 2500 ml 325 ml Tube Feeding Residual Discard 0 ml # Bowel Movements 0 6 Result Diagram: 12/04/1713 12/04/17 0513 Imaging Last Impressions Chest X-Ray 12/04/17 0600 Signed Impressions: Service Date/Time: November 05:27 - CONCLUSION: 1. Interval increase in patchy opacity at the left lung base. The left costophrenic angle now appears blunted. 2. New mild patchy opacity at the right lung base. 3. Interval extubation and removal of nasogastric tube. Malvin Waters MD Head CT 11/30/17 0000 Signed Impressions: Service Date/Time: Thursday, November 30, 2017 01:58 - CONCLUSION: 1. No acute intracranial abnormalities. Milton Mojica MD CT Angiography 11/30/17 0000 Signed Impressions: Service Date/Time: Thursday, November 30, 2017 02:12 - CONCLUSION: 1. Negative for pulmonary embolus. Endotracheal tube and nasogastric tube in good position. Improvement in bilateral upper lobe airspace disease since November 25. Milton Mojica MD Chest CT 11/24/17 0000 Signed Impressions: Service Date/Time: Friday, November 24, 2017 22:12 - CONCLUSION: 1. Development of bilateral airspace disease over the last 4 days, upper lobe predominant with small pleural effusions. Differential diagnosis includes bronchopneumonia and aspiration. Also consider some form of hypersensitivity or drug reaction. Milton Mojica MD Chest Ultrasound 11/22/17 0000 Signed Impressions: Service Date/Time: Wednesday, November 22, 2017 15:25 - CONCLUSION: No pleural effusion Stewart Ny MD Objective Remarks GENERAL: Pleasant 52 yo F, awake and alert and oriented x 3, appears in nad SKIN: Warm and dry. HEAD: Atraumatic. Normocephalic. CARDIOVASCULAR: Regular rate and rhythm. RESPIRATORY: Decrease breath sounds right base, decrease vocal fremitus, no wheezing. GASTROINTESTINAL: Abdomen soft, non-tender, nondistended. MUSCULOSKELETAL: Extremities without clubbing, cyanosis, or edema. No obvious deformities. NEUROLOGICAL: Awake and alert. No obvious cranial nerve deficits. Motor grossly within normal limits. Five out of 5 muscle strength in the arms and legs. Normal speech. PSYCHIATRIC: Appropriate mood and affect; insight and judgment normal. Procedures 11/22-extubation A/P Assessment and Plan 52 years old admitted for Recurrence Seizure due to non compliance with history of Seizure disorder - continue on Vimpat, Keppra- change to po in am if continues to be stable respiratory tidwell 11/21 EEG -no epileptiform features 11/21 CT brain- negative for intracranial process Neurology following - PT daily - neuro stable Respiratory Failure S/P extubation now on 4 LNC mostly during the day however requiring BiPAP- no history of HAD, no smoker. Refused BiPAP overnight. 11/29/17 with respiratory distress dessating at 80s while on NC with labored breathing, wheezing and nonproductive cough -Patient was intubated 11/30/17 and extubated successfully - continue duonebs -CXR reviewed improved aeration - Continue on IV antibitoics - Continue O2 supplement keep O2 sat > 92% - Pulmonary consult, ff Anxiety with h/o BD. Restart home meds. Also added small dose of xanax prn. Started on Seroquel. Consult psych, appreciate recommendations Pneumonia- likely aspiration - Persistent consolidation vs Atelectasis - US shows no pleural effusion - continue On IV antibiotics- on Vancomycin and zosyn, consider DC abx - Pulmonary consulted ? eval need for bronchoscopy - See above Lactic acidemia-- resolved - 2nd seizures Monitor LA Electrolyte derangement- corrected monitor Hypokalemia- Replaced. Add ICU electrolyte protocol PT eval and treat - Subcutaneous heparin q 8 for DVT prophylaxis - Pepcid PO BID Discharge plan pending improvement and clearance by consultants. Annalee Marion MD Dec 04, 2017 14:38
[2017-12-04] MEDS: LACTOBACILLUS ACIDOPHILUS TAB PO SCH (21:00)
[2017-12-04] MEDS: RESP: IPRATROPIUM 0.5 MG/2.5 ML NEB NEB SCH (21:39)
[2017-12-05] VITALS: BP 112/80; PULSE 81; RESP 22; TEMP 98; O2SAT 93
[2017-12-05] MEDS: LACOSAMIDE INJ 150 MG in SODIUM CHLORIDE 0.9% INJ 100 ML IV SCH (03:02)
[2017-12-05] MEDS: CHLORHEXIDINE GLUCONATE 2 % 1 PACK (2 CLOTHS) TOP SCH (03:03)
[2017-12-05] MEDS: SODIUM CHLOR 0.9% 1000 ML INJ 1,000 ML IV SCH (03:05)
[2017-12-05 04:00] VITALS: BP 104/61; PULSE 78; RESP 21; TEMP 97.1; O2SAT 89
[2017-12-05] MEDS: HEPARIN SODIUM - SQ 10,000 UNITS/ML VIAL SQ SCH (04:23)
[2017-12-05 05:04] LABS: AUTOMATED NEUTROPHIL # 7.6 TH/MM3 (1.8-7.7); BASOPHIL % 0.3 % (0.0-2.0); EOSINOPHIL # 0.2 TH/MM3 (0-0.4); EOSINOPHIL % 2.2 % (0.0-4.0); HEMATOCRIT 30.2 % (35.0-46.0); HEMOGLOBIN 10.3 GM/DL (11.6-15.3); LYMPH % 11.8 % (9.0-44.0); LYMPHOCYTE # 1.2 TH/MM3 (1.0-4.8); MEAN CELL VOLUME 86.6 FL (80.0-100.0); MEAN CORPUSCULAR HEMOGLOBIN 29.4 PG (27.0-34.0); MEAN CORPUSCULAR HGB CONC 33.9 % (32.0-36.0); MEAN PLATELET VOLUME 9.6 FL (7.0-11.0); MONOCYTE # 0.9 TH/MM3 (0-0.9); NEUT % 76.7 % (16.0-70.0); PLATELET COUNT 179 TH/MM3 (150-450); RED BLOOD COUNT 3.49 MIL/MM3 (4.00-5.30); RED CELL DISTRIBUTION WIDTH 14.6 % (11.6-17.2); WHITE BLOOD COUNT 9.9 TH/MM3 (4.0-11.0)
[2017-12-05 05:25] LABS: ALBUMIN 2.2 GM/DL (3.4-5.0); AST (GOT) 88 U/L (15-37); BICARBONATE 27.3 MEQ/L (21.0-32.0); BLOOD UREA NITROGEN 13 MG/DL (7-18); CALCIUM 8.3 MG/DL (8.5-10.1); CHLORIDE 112 MEQ/L (98-107); CREATININE 0.76 MG/DL (0.50-1.00); GLOMERULAR FILTRATION RATE 79 ML/MIN (>89); GLUCOSE,RANDOM 82 MG/DL (74-106); MAGNESIUM 2.1 MG/DL (1.5-2.5); SODIUM (NA) 146 MEQ/L (136-145)
[2017-12-05 05:26] LABS: ALT (GPT) 107 U/L (10-53)
[2017-12-05 05:28] LABS: ALKALINE PHOSPHATASE 78 U/L (45-117); PHOSPHORUS 3.4 MG/DL (2.5-4.9); TOTAL BILIRUBIN ADULT 0.3 MG/DL (0.2-1.0); TOTAL PROTEIN 5.5 GM/DL (6.4-8.2)
[2017-12-05 07:14] LABS: BANDS 2 % (0-6); LYMPHOCYTES 14 % (9-44); MONOCYTES 7 % (0-8); MYELOCYTES 3 % (0-0); NEUTROPHIL # MANUAL DIFF 7.7 TH/MM3 (1.8-7.7); POLYS (SEG NEUTROPHILS) 73 % (16-70)
[2017-12-05 07:30] VITALS: PULSE 68
[2017-12-05 08:00] VITALS: BP 102/63; PULSE 69; RESP 18; TEMP 98.3; O2SAT 95
[2017-12-05] MEDS: CHLORHEXIDINE 0.12% (ORAL KIT) 15 ML CUP MT SCH ×2 (08:00)
[2017-12-05] MEDS ORDERED: LEVA500T33 PO (08:11)
[2017-12-05] MEDS ORDERED: SERO25TA PO (08:11)
--- NOTE | 2017-12-05 08:11 | HHI.DS ---
Discharge Summary Admission Date Nov 20, 2017 at 21:41 Discharge Date: Dec 05, 2017 Admitting Diagnosis status epilepticus (1) Unspecified psychosis ICD Code: F29 - Unspecified psychosis not due to a substance or known physiological condition Procedures intubated and extubation Brief History - From Admission 52-year-old female with a diagnosis of MR as well as seizure apparently she was not taking her seizure medications and started seizing. Per paramedics report she had nonstop seizures such as repeated facial spasm and arm twitching which is her focal seizure like presentation. She was given 2 of Versed en route did not break her seizure and was given 2 more en route and then they called for a second dose of Versed and then a third. She arrived to emergency department sedated but yet still having facial twitching and arm twitching and was intubated by ED attending for an airway protection. CBC/BMP: 12/05/17 0400 12/05/17 0400 Significant Findings Laboratory Tests Test 12/02/17 09:10 12/03/17 04:50 12/04/17 05:13 12/05/17 04:00 Vancomycin Level Trough 30.1 MCG/ML (5.0-10.0) White Blood Count 13.1 TH/MM3 (4.0-11.0) 12.4 TH/MM3 (4.0-11.0) Red Blood Count 3.53 MIL/MM3 (4.00-5.30) 3.83 MIL/MM3 (4.00-5.30) 3.49 MIL/MM3 (4.00-5.30) Hemoglobin 10.0 GM/DL (11.6-15.3) 11.1 GM/DL (11.6-15.3) 10.3 GM/DL (11.6-15.3) Hematocrit 30.5 % (35.0-46.0) 33.2 % (35.0-46.0) 30.2 % (35.0-46.0) Neutrophils (%) (Auto) 89.6 % (16.0-70.0) 82.5 % (16.0-70.0) 76.7 % (16.0-70.0) Lymphocytes (%) (Auto) 4.7 % (9.0-44.0) 6.9 % (9.0-44.0) Neutrophils # (Auto) 11.7 TH/MM3 (1.8-7.7) 10.2 TH/MM3 (1.8-7.7) Lymphocytes # (Auto) 0.6 TH/MM3 (1.0-4.8) 0.9 TH/MM3 (1.0-4.8) Neutrophils % (Manual) 84 % (16-70) 74 % (16-70) 73 % (16-70) Lymphocytes % 5 % (9-44) 7 % (9-44) Neutrophils # (Manual) 12.2 TH/MM3 (1.8-7.7) 10.5 TH/MM3 (1.8-7.7) Metamyelocytes 2 % (0-1) 5 % (0-1) Myelocytes 3 % (0-0) 3 % (0-0) 3 % (0-0) Random Glucose 121 MG/DL (74-106) Total Protein 4.8 GM/DL (6.4-8.2) 5.4 GM/DL (6.4-8.2) 5.5 GM/DL (6.4-8.2) Albumin 1.9 GM/DL (3.4-5.0) 2.2 GM/DL (3.4-5.0) 2.2 GM/DL (3.4-5.0) Calcium Level 7.3 MG/DL (8.5-10.1) 8.3 MG/DL (8.5-10.1) 8.3 MG/DL (8.5-10.1) Sodium Level 147 MEQ/L (136-145) 149 MEQ/L (136-145) 146 MEQ/L (136-145) Chloride Level 114 MEQ/L (98-107) 115 MEQ/L (98-107) 112 MEQ/L (98-107) Estimat Glomerular Filtration Rate 84 ML/MIN (>89) 78 ML/MIN (>89) 79 ML/MIN (>89) Monocytes # (Auto) 1.0 TH/MM3 (0-0.9) Aspartate Amino Transf (AST/SGOT) 75 U/L (15-37) 88 U/L (15-37) Alanine Aminotransferase (ALT/SGPT) 79 U/L (10-53) 107 U/L (10-53) Monocytes (%) (Auto) 9.0 % (0.0-8.0) Potassium Level 3.4 MEQ/L (3.5-5.1) Imaging Last Impressions Chest X-Ray 12/04/17 0600 Signed Impressions: Service Date/Time: November 05:27 - CONCLUSION: 1. Interval increase in patchy opacity at the left lung base. The left costophrenic angle now appears blunted. 2. New mild patchy opacity at the right lung base. 3. Interval extubation and removal of nasogastric tube. Malvin Waters MD Head CT 11/30/17 0000 Signed Impressions: Service Date/Time: Thursday, November 30, 2017 01:58 - CONCLUSION: 1. No acute intracranial abnormalities. Milton Mojica MD CT Angiography 11/30/17 0000 Signed Impressions: Service Date/Time: Thursday, November 30, 2017 02:12 - CONCLUSION: 1. Negative for pulmonary embolus. Endotracheal tube and nasogastric tube in good position. Improvement in bilateral upper lobe airspace disease since November 25. Milton Mojica MD Chest CT 11/24/17 0000 Signed Impressions: Service Date/Time: Friday, November 24, 2017 22:12 - CONCLUSION: 1. Development of bilateral airspace disease over the last 4 days, upper lobe predominant with small pleural effusions. Differential diagnosis includes bronchopneumonia and aspiration. Also consider some form of hypersensitivity or drug reaction. Milton Mojica MD Chest Ultrasound 11/22/17 0000 Signed Impressions: Service Date/Time: Wednesday, November 22, 2017 15:25 - CONCLUSION: No pleural effusion Stewart Ny MD PE at Discharge GENERAL: Pleasant 52 yo F, awake and alert and oriented x 3, appears in nad SKIN: Warm and dry. HEAD: Atraumatic. Normocephalic. CARDIOVASCULAR: Regular rate and rhythm. RESPIRATORY: Decrease breath sounds right base, decrease vocal fremitus, no wheezing. GASTROINTESTINAL: Abdomen soft, non-tender, nondistended. MUSCULOSKELETAL: Extremities without clubbing, cyanosis, or edema. No obvious deformities. NEUROLOGICAL: Awake and alert. No obvious cranial nerve deficits. Motor grossly within normal limits. Five out of 5 muscle strength in the arms and legs. Normal speech. PSYCHIATRIC: Appropriate mood and affect; insight and judgment normal. Pt update on day of discharge No events overnight. VSS. Hospital Course 52 years old admitted for Recurrence Seizure due to non compliance with history of Seizure disorder On Vimpat, Keppra 11/21 EEG -no epileptiform features 11/21 CT brain- negative for intracranial process Neurology consulted following - PT daily - neuro stable Respiratory Failure S/P intubated and extubation x 2. no history of HAD, no smoker. 11/29/17 with respiratory distress dessating at 80s while on NC with labored breathing, wheezing and nonproductive cough Patient was intubated for 2 nd time on 11/30/17 and extubated successfully Continue duonebs CXR reviewed improved aeration Received IV antibitoics, cultures negative Continue O2 supplement keep O2 sat > 92% Pulmonary consult, ff Anxiety with h/o BD. Restart home meds. Also added small dose of xanax prn. Started on Seroquel. Consult psych, appreciate recommendations Pneumonia- likely aspiration - Persistent consolidation vs Atelectasis - US shows no pleural effusion - continue On IV antibiotics- Received iv Vancomycin and zosyn - Pulmonary consulted Lactic acidemia-- resolved - 2nd seizures Monitor LA Electrolyte derangement- corrected, monitor Hypokalemia- Replaced. Eating better PT eval and treat - Subcutaneous heparin q 8 for DVT prophylaxis - Pepcid PO BID Patient improved discharged in stable condition to follow up as OP with PCP and consultants. Pt Condition on Discharge: Stable Discharge Disposition: Discharge Home Discharge Time: > 30 minutes Discharge Instructions DIET: Follow Instructions for: Heart Healthy Diet Activities you can perform: Regular-No Restrictions Activities to Avoid: Driving Follow up Referrals: Neurology - 2 Weeks PCP Follow-up - 2-3 Days Pulmonology - 1 Week New Medications: Albuterol 18 GM Inh (Ventolin Hfa 18 GM Inh) 90 Mcg/Act Aer 2 PUFF INH Q4-6H PRN for SHORTNESS OF BREATH, #1 INHALER 0 Refills Levofloxacin (Levaquin) 500 Mg Tablet 500 MG PO DAILY for infection, #5 TAB Quetiapine (Seroquel) 25 Mg Tab 25 MG PO BID for seizures, #90 TAB Continued Medications: Fluoxetine (Prozac) 40 Mg Cap 40 MG PO DAILY, #30 CAP 0 Refills Lacosamide (Vimpat) 200 Mg Tab 200 MG PO BID for Control Seizures, #60 TAB 0 Refills Levetiracetam (Keppra) 500 Mg Tab 500 MG BID for Control Seizures, #60 TAB 0 Refills Levetiracetam (Keppra) 500 Mg Tab 1500 MG HS for Control Seizures, #60 TAB 0 Refills Trazodone (Trazodone) 50 Mg Tab 50 MG PO HS for Control Depression, #30 TAB 0 Refills Annalee Marion MD Dec 05, 2017 08:11
[2017-12-05] MEDS ORDERED: VENTAER INH (08:14)
[2017-12-05] MEDS ORDERED: POTASSIUM BICARBONATE 25 MEQ EFFERVESCENT TAB PO ONE (08:30)
[2017-12-05] MEDS: SODIUM CHLORIDE 0.9% FLUSH 10 ML FLUSH IV FLUSH SCH (08:35)
[2017-12-05] MEDS: LACTOBACILLUS ACIDOPHILUS TAB PO SCH (08:35)
[2017-12-05] MEDS: FAMOTIDINE 20 MG TAB PO SCH (08:35)
[2017-12-05] MEDS: QUEtiapine FUMARATE 25 MG TAB PO SCH (08:35)
[2017-12-05] MEDS: DOCUSATE SODIUM 50 MG/SENNA 8.6 MG TAB PO SCH (08:35)
[2017-12-05] MEDS ORDERED: LEVOFLOXACIN 500 MG TAB PO SCH (09:00)
[2017-12-05] MEDS: RESP: IPRATROPIUM 0.5 MG/2.5 ML NEB NEB SCH (09:21)
[2017-12-05 09:22] VITALS: O2SAT 95
[2017-12-05] MEDS: POTASSIUM CHLORIDE 25 MEQ EFFERVESCENT TAB PO PRN ×3 (09:25→09:29)
[2017-12-05] MEDS: levETIRAcetam INJ 100 ML IV SCH (11:00)
[2017-12-05 12:00] VITALS: BP 97/57; PULSE 85; RESP 19; TEMP 98.3; O2SAT 94
[2017-12-05] MEDS ORDERED: PHARMACY ORDERED LAB ONE (12:45)
[2017-12-05] MEDS ORDERED: TRAZ100T10 PO (22:09)
[2017-12-05] MEDS ORDERED: VITA10002 PO (22:09)
[2017-12-05] MEDS ORDERED: LEVE500T8 PO (22:09)
[2017-12-05] MEDS ORDERED: VIMP200T PO (22:09)
[2017-12-05] MEDS ORDERED: FLUO40CA PO (22:09)
[2017-12-06] MEDS ORDERED: IPRA17I INH (01:01)
[2017-12-06] MEDS ORDERED: LEVA500T33 PO (01:01)
[2017-12-06] MEDS ORDERED: VENTAER INH (01:01)
[2017-12-06] MEDS ORDERED: SERO25TA PO (01:02)
== END 2017-12-05 12:42 | disposition home or self-care (01) | DRG 100 ==
LOC: NEPC 20:15 → NEDA 21:41 → MERGE 21:41 → HIMN 23:15 → N05B 11-24 22:20 → N03B 11-26 03:11
PROVIDERS: ADMIT Hospitalist; ATTEND Hospitalist
PROC: 5A1935Z Respiratory Ventilation, Less than 24 Consecutive Hours (ICD-10-PCS; principal; 2017-11-20)
PROC: 0BH17EZ Insertion of Endotracheal Airway into Trachea, Via Natural or Artificial Opening (ICD-10-PCS; 2017-11-20)
PROC: 0T9B70Z Drainage of Bladder with Drainage Device, Via Natural or Artificial Opening (ICD-10-PCS; 2017-11-20)
PROC: 5A1945Z Respiratory Ventilation, 24-96 Consecutive Hours (ICD-10-PCS; 2017-11-30)
PROC: 0BH17EZ Insertion of Endotracheal Airway into Trachea, Via Natural or Artificial Opening (ICD-10-PCS; 2017-11-30)
DX: G40.901 Epilepsy, unspecified, not intractable, with status epilepticus (principal); J96.01 Acute respiratory failure with hypoxia; J69.0 Pneumonitis due to inhalation of food and vomit; R09.2 Respiratory arrest; E87.4 Mixed disorder of acid-base balance; J90 Pleural effusion, not elsewhere classified; J98.11 Atelectasis; Z91.14 Patient's other noncompliance with medication regimen; I34.0 Nonrheumatic mitral (valve) insufficiency; Z91.19 Patient's noncompliance with other medical treatment and regimen; F31.9 Bipolar disorder, unspecified; E87.6 Hypokalemia; E83.39 Other disorders of phosphorus metabolism; F41.9 Anxiety disorder, unspecified; F71 Moderate intellectual disabilities; F29 Unspecified psychosis not due to a substance or known physiological condition; Y84.8 Other medical procedures as the cause of abnormal reaction of the patient, or of later complication, without mention of misadventure at the time of the procedure
CPT/HCPCS: 31500; 36556; 36600; 51702; 70450; 71045; 71250; 71275; 76604; 76937; 80048; 80053; 80202; 80307; 81001; 82550; 82552; 82565; 82805; 82948; 83605; 83690; 83735; 83880; 84100; 84132; 84484; 85007; 85025; 85027; 85610; 85730; 86850; 86900; 86901; 87015; 87040; 87070; 87086; 87205; 87449; 87493; 87641; 87804; 93005; 93306; 94002; 94003; 94150; 94640; 94664; 94667; 94668; 95819; 96374; 96375; C9254; J0295; J0456; J0692; J1100; J1644; J1650; J1940; J1953; J2060; J2543; J2920; J2930; J3010; J3370; J3480; J7030; J7040; J7050; J7613; J7644; Q9967

== ENCOUNTER 2017-12-05 21:09 | Emergency (ER) | payer MEDICARE, MEDICAID ==
[~2017-12-05] VITALS: Ht 165.1 cm; Wt 80.0 kg
[~2017-12-05 21:09] MED LIST changes: +LEVA500T33 PO; +LEVE500; +SERO25TA PO; +TRAZ50TA12 PO; +VENTAER INH; +VIMP200T PO
[2017-12-05 21:12] VITALS: BP 135/69; PULSE 101; RESP 16; TEMP 98.2; O2SAT 94
[2017-12-05] MEDS ORDERED: VIMP200T PO (22:09)
[2017-12-05] MEDS ORDERED: FLUO40CA PO (22:09)
[2017-12-05] MEDS ORDERED: VITA10002 PO (22:09)
[2017-12-05] MEDS ORDERED: TRAZ100T10 PO (22:09)
[2017-12-05] MEDS ORDERED: LEVE500T8 PO (22:09)
[2017-12-05 22:17] VITALS: BP 134/67; PULSE 97; RESP 12; O2SAT 92
[2017-12-05 23:03] LABS: AUTOMATED NEUTROPHIL # 9.6 TH/MM3 (1.8-7.7); BASOPHIL % 0.3 % (0.0-2.0); EOSINOPHIL # 0.1 TH/MM3 (0-0.4); EOSINOPHIL % 1.2 % (0.0-4.0); HEMATOCRIT 35.8 % (35.0-46.0); HEMOGLOBIN 11.8 GM/DL (11.6-15.3); LYMPH % 9.3 % (9.0-44.0); LYMPHOCYTE # 1.1 TH/MM3 (1.0-4.8); MEAN CELL VOLUME 85.9 FL (80.0-100.0); MEAN CORPUSCULAR HEMOGLOBIN 28.3 PG (27.0-34.0); MEAN CORPUSCULAR HGB CONC 32.9 % (32.0-36.0); MEAN PLATELET VOLUME 9.1 FL (7.0-11.0); MONO % 8.3 % (0.0-8.0); NEUT % 80.9 % (16.0-70.0); PLATELET COUNT 269 TH/MM3 (150-450); RED BLOOD COUNT 4.17 MIL/MM3 (4.00-5.30); RED CELL DISTRIBUTION WIDTH 14.7 % (11.6-17.2); WHITE BLOOD COUNT 11.9 TH/MM3 (4.0-11.0)
[2017-12-05 23:20] LABS: BACTERIA, URINE OCC /hpf; BILIRUBIN, URINE NEG (NEG); BLOOD, URINE TRACE (NEG); GLUCOSE,URINE NEG (NEG); KETONE, URINE NEG (NEG); NITRITE,URINE NEG (NEG); PH, URINE 6.5 (5.0-8.5); SQUAMOUS EPITHELIAL CELL URINE 1 /hpf (0-5); TRANSITIONAL EPI CELLS, URINE <1 /hpf; URINE COLOR YELLOW (YELLW/STRAW); URINE LEUKOCYTE ESTERASE LARGE (NEG); WHITE BLOOD CELL CLUMPS RARE
[2017-12-05 23:21] LABS: ALKALINE PHOSPHATASE 91 U/L (45-117); ALT (GPT) 128 U/L (10-53); PHOSPHORUS 2.1 MG/DL (2.5-4.9); TOTAL BILIRUBIN ADULT 0.2 MG/DL (0.2-1.0); TOTAL PROTEIN 7.1 GM/DL (6.4-8.2)
[2017-12-05 23:23] LABS: ALBUMIN 2.9 GM/DL (3.4-5.0); AST (GOT) 88 U/L (15-37); BICARBONATE 28.4 MEQ/L (21.0-32.0); BLOOD UREA NITROGEN 12 MG/DL (7-18); CALCIUM 8.8 MG/DL (8.5-10.1); CHLORIDE 111 MEQ/L (98-107); CREATININE 0.87 MG/DL (0.50-1.00); GLOMERULAR FILTRATION RATE 68 ML/MIN (>89); GLUCOSE,RANDOM 109 MG/DL (74-106); MAGNESIUM 2.3 MG/DL (1.5-2.5); SODIUM (NA) 146 MEQ/L (136-145)
[2017-12-05 23:48] VITALS: BP 122/68; PULSE 90; RESP 16; O2SAT 96
[2017-12-06 00:07] LABS: BASOPHILS 1 % (0-2); LYMPHOCYTES 8 % (9-44); MONOCYTES 6 % (0-8); MYELOCYTES 5 % (0-0); NEUTROPHIL # MANUAL DIFF 10.1 TH/MM3 (1.8-7.7); POLYS (SEG NEUTROPHILS) 80 % (16-70)
--- NOTE | 2017-12-06 00:22 | RADRPT ---
EXAM DATE/TIME: 12/05/2017 23:54 [facility] COMPARISON: No previous studies available for comparison. INDICATIONS : Bilateral leg swelling. MEDICAL HISTORY : Glasses. Seizures. Bipolar disorder. Depression. Anxiety. SURGICAL HISTORY : Tonsillectomy. Adenoidectomy. Hemangioma removal. ENCOUNTER: Initial ACUITY: 2 day PAIN SCORE: 2/10 LOCATION: Bilateral legs. TECHNIQUE: Venous ultrasound of the left and right leg was performed from the inguinal ligament to the proximal calf. Real-time, color Doppler and spectral tracing, compression and augmentation techniques were us ed. FINDINGS: RIGHT LEG: There is normal compressibility of the deep venous system from the inguinal region to the proximal ca lf. No echogenic clot is seen in the lumen of the common femoral, femoral, popliteal, and posterior tibial veins. There is a normal response of the venous system to proximal and distal augmentation an d respiration. LEFT LEG: There is normal compressibility of the deep venous system from the inguinal region to the proximal ca lf. No echogenic clot is seen in the lumen of the common femoral, femoral, popliteal, and posterior tibial veins. There is a normal response of the venous system to proximal and distal augmentation an d respiration. CONCLUSION: Negative study. No venous thrombosis of either lower extremity. Billy Slade MD on December 06, 2017 at 0:20 Board Certified Radiologist. This report was verified electronically.
[2017-12-06] MEDS ORDERED: POTASSIUM CHLORIDE 20 MEQ CONTROLLED RELEASE TAB PO ONE (00:30)
[2017-12-06] MEDS ORDERED: CALCIUM ACETATE 667 MG CAP PO ONE (00:30)
[2017-12-06] MEDS ORDERED: POTASSIUM PHOSPHATE MONOBASIC 500 MG TAB PO ONE (00:45)
[2017-12-06] MEDS ORDERED: LEVA500T33 PO (01:01)
[2017-12-06] MEDS ORDERED: IPRA17I INH (01:01)
[2017-12-06] MEDS ORDERED: VENTAER INH (01:01)
[2017-12-06] MEDS ORDERED: SERO25TA PO (01:02)
--- NOTE | 2017-12-06 01:07 | PD ---
HPI Chief Complaint: Seizure Time Seen by Provider: 22:04 Travel History International Travel<30 days: No Contact w/Intl Traveler<30days: No Traveled to known affect area: No History of Present Illness HPI pt has history of seizures and was recently in our ICU for status epilepticus and needed propofol sedation and intubation done in ER then in ICU was eventually extubated but has PNA resp failure and then re- intubated and went home yesterday . pt has complaint of edema to lower legs. No Hx of DVT no hx of peripheral edema never on HCTZ nor lasix. Mother worried for legs and returns to ED . Pt seen by at [facility] within last 24hr , unclear if this complaint was discussed . pt on no diuretic PFSH Past Medical History Autoimmune Disease: No Blood Disorders: No Bipolar Disorder: Yes Anxiety: Yes Depression: Yes Cancer: No Cardiovascular Problems: No Chemotherapy: No Cerebrovascular Accident: No Developmental Delay: Yes (PRE TERM SPECIAL ED) Diminished Hearing: No Endocrine: No Gastrointestinal Disorders: No Genitourinary: No Headaches: Yes Musculoskeletal: No Neurologic: Yes Psychiatric: Yes Respiratory: No Radiation Therapy: No Seizures: Yes Influenza Vaccination: Yes ?: Not Past Surgical History Abdominal Surgery: No Cardiac Surgery: No Ear Surgery: No Endocrine Surgery: No Eye Surgery: No Genitourinary Surgery: No Gynecologic Surgery: No Neurologic Surgery: No Oral Surgery: No Thoracic Surgery: No Other Surgery: Yes (T&A AGE 3, HEMANGIOMAS AGE 9 MONTHS) Social History Alcohol Use: No Tobacco Use: No Substance Use: No Allergies-Medications (Allergen,Severity, Reaction): Coded Allergies: No Known Allergies (Verified , 11/11/15) Reported Meds & Prescriptions Reported Meds & Active Scripts Active Seroquel (Quetiapine Fumarate) 25 Mg Tab 25 Mg PO HS Atrovent HFA 12.9 GM Inh (Ipratropium [place]) 17 Mcg/Actuation Aer 2 Puff INH Q6HR PRN Ventolin Hfa 18 GM Inh (Albuterol Sulfate) 90 Mcg/Act Aer 2 Puff INH Q4-6H PRN Levaquin (Levofloxacin) 500 Mg Tablet 500 Mg PO DAILY Reported Levetiracetam 500 Mg Tab 500 Mg PO BID Fluoxetine (Fluoxetine HCl) 40 Mg Cap 40 Cap PO DAILY Trazodone (Trazodone HCl) 100 Mg Tablet 200 Mg PO HS Vitamin B-12 (Cyanocobalamin) 1,000 Mcg Tab 1,000 Mcg PO DAILY Vimpat (Lacosamide) 200 Mg Tab 200 Mg PO BID Review of Systems Except as stated in HPI: all other systems reviewed are Neg Musculoskeletal: Positive: Edema (bilateral lower ankles feet) Physical Exam Narrative GENERAL: non toxic non septioc appearing pt SKIN: Warm and dry. HEAD: Atraumatic. Normocephalic. EYES: Pupils equal and round. No scleral icterus. No injection or drainage. ENT: No nasal bleeding or discharge. Mucous membranes pink and moist. NECK: Trachea midline. No JVD. CARDIOVASCULAR: Regular rate and rhythm. RESPIRATORY: No accessory muscle use. Clear to auscultation. Breath sounds equal bilaterally. GASTROINTESTINAL: Abdomen soft, non-tender, nondistended. Hepatic and splenic margins not palpable. MUSCULOSKELETAL: Extremities bialteral lower pitting edema 1+ bilateral no redness no signs of cellulitis , without clubbing, cyanosis, + edema. No obvious deformities. NEUROLOGICAL: Awake and alert. No obvious cranial nerve deficits. Motor grossly within normal limits. Five out of 5 muscle strength in the arms and legs. Normal speech. PSYCHIATRIC: Appropriate mood and affect; insight and judgment normal. Data Data Last Documented VS Vital Signs Date Time Temp Pulse Resp B/P (MAP) Pulse Ox O2 Delivery O2 Flow Rate FiO2 12/06/17 01:23 12/05/17 23:48 90 16 96 Room Air 12/05/17 21:12 98.2 Orders Orders Complete Blood Count With Diff (12/05/17 22:33) Comprehensive Metabolic Panel (12/05/17 22:33) Magnesium (Mg) (12/05/17 22:33) Phosphorus (Po4) (12/05/17 22:33) Urinalysis - C+S If Indicated (12/05/17 22:33) Us Leg Venous Doppler Bilat (12/05/17 ) Urine Culture (12/05/17 22:35) Calcium Acetate (Phoslo) (12/06/17 00:30) Potassium Chloride (Kcl) (12/06/17 00:30) Potassium Phosphate (K-Phos) (12/06/17 00:45) Ed Discharge Order (12/06/17 01:08) Ed Discharge Order (12/06/17 01:08) Labs Laboratory Tests Test 12/05/17 22:35 White Blood Count 11.9 TH/MM3 Red Blood Count 4.17 MIL/MM3 Hemoglobin 11.8 GM/DL Hematocrit 35.8 % Mean Corpuscular Volume 85.9 FL Mean Corpuscular Hemoglobin 28.3 PG Mean Corpuscular Hemoglobin Concent 32.9 % Red Cell Distribution Width 14.7 % Platelet Count 269 TH/MM3 Mean Platelet Volume 9.1 FL Neutrophils (%) (Auto) 80.9 % Lymphocytes (%) (Auto) 9.3 % Monocytes (%) (Auto) 8.3 % Eosinophils (%) (Auto) 1.2 % Basophils (%) (Auto) 0.3 % Neutrophils # (Auto) 9.6 TH/MM3 Lymphocytes # (Auto) 1.1 TH/MM3 Monocytes # (Auto) 1.0 TH/MM3 Eosinophils # (Auto) 0.1 TH/MM3 Basophils # (Auto) 0.0 TH/MM3 CBC Comment AUTO DIFF Differential Total Cells Counted 100 Neutrophils % (Manual) 80 % Lymphocytes % 8 % Monocytes % 6 % Basophils % 1 % Neutrophils # (Manual) 10.1 TH/MM3 Myelocytes 5 % Differential Comment FINAL DIFF MANUAL Platelet Estimate NORMAL Platelet Morphology Comment NORMAL Red Cell Morphology Comment NORMAL Urine Color YELLOW Urine Turbidity HAZY Urine pH 6.5 Urine Specific [place] 1.015 Urine Protein TRACE mg/dL Urine Glucose (UA) NEG mg/dL Urine Ketones NEG mg/dL Urine Occult Blood TRACE Urine Nitrite NEG Urine Bilirubin NEG Urine Urobilinogen LESS THAN 2.0 MG/DL Urine Leukocyte Esterase LARGE Urine RBC 5 /hpf Urine WBC 140 /hpf Urine WBC Clumps RARE Urine Squamous Epithelial Cells 1 /hpf Urine Transitional Epithelial Cells <1 /hpf Urine Bacteria OCC /hpf Microscopic Urinalysis Comment CULTURE INDICATED Blood Urea Nitrogen 12 MG/DL Creatinine 0.87 MG/DL Random Glucose 109 MG/DL Total Protein 7.1 GM/DL Albumin 2.9 GM/DL Calcium Level 8.8 MG/DL Phosphorus Level 2.1 MG/DL Magnesium Level 2.3 MG/DL Alkaline Phosphatase 91 U/L Aspartate Amino Transf (AST/SGOT) 88 U/L Alanine Aminotransferase (ALT/SGPT) 128 U/L Total Bilirubin 0.2 MG/DL Sodium Level 146 MEQ/L Potassium Level 3.2 MEQ/L Chloride Level 111 MEQ/L Carbon Dioxide Level 28.4 MEQ/L Anion Gap 7 MEQ/L Estimat Glomerular Filtration Rate 68 ML/MIN MDM Medical Decision Making Medical Screen Exam Complete: Yes Emergency Medical Condition: Yes Differential Diagnosis edema of fluid management on vent in ICU and valve incompentence versus fluid overlaod vs cardiac issue vs lymhedema from sepsis & PNA other --- -> DVT bilateral from immobility in ICU Narrative Course Pt. mild hypokalemic po replaced , US legs doppler bilateral negative for DVTs ... HCTZ offered but due to K lower mother advised to discuss diuretic with PCP wi 24 hr follow up D?C home .. Pts mother asked if I could write Rx for meds she was supposed to be rx from inpatient and has list with her but reports didnt end up with the prescriptions , I will write for 1 week of each Diagnosis Primary Impression: Edema extremities Patient Instructions: General Instructions, Leg Edema (ED) Scripts Quetiapine (Seroquel) 25 Mg Tab 25 MG PO HS, #15 TAB 0 Refills Prov: Chan Negrete MD 12/06/17 Ipratropium HFA 12.9 GM Inh (Atrovent HFA 12.9 GM Inh) 17 Mcg/Actuation Aer 2 PUFF INH Q6HR Y for SHORTNESS OF BREATH, #1 INHALER 0 Refills Prov: Chan Negrete MD 12/06/17 Albuterol 18 GM Inh (Ventolin Hfa 18 GM Inh) 90 Mcg/Act Aer 2 PUFF INH Q4-6H Y for SHORTNESS OF BREATH, #1 INHALER 0 Refills Prov: Chan Negrete MD 12/06/17 Levofloxacin (Levaquin) 500 Mg Tablet 500 MG PO DAILY for Infection, #7 TAB 0 Refills Prov: Chan Negrete MD 12/06/17 Disposition: 01 DISCHARGE HOME Condition: Good Chan Ngerete MD Dec 06, 2017 01:07
== END 2017-12-06 01:24 | disposition home or self-care (01) ==
LOC: NEPE 21:09
DX: R60.1 Generalized edema (principal); E87.6 Hypokalemia; R56.9 Unspecified convulsions; F31.9 Bipolar disorder, unspecified; F41.9 Anxiety disorder, unspecified; Z79.51 Long term (current) use of inhaled steroids; Z79.899 Other long term (current) drug therapy
CPT/HCPCS: 80053; 81001; 83735; 84100; 85007; 85027; 87086; 93970

== ENCOUNTER 2018-03-10 12:29 | Emergency (ER) | payer MEDICAID, MEDICARE ==
[~2018-03-10] VITALS: Ht 162.6 cm; Wt 66.0 kg
[~2018-03-10 12:29] MED LIST changes: +FLUO40CA PO; +IPRA17I INH; -KEPP1000 PO; -LACO100 PO; -LEVE500 PO; +LEVE500T8 PO; -PHEN100 PO; +TRAZ100T10 PO; -TRAZ50TA4 PO; +VITA10002 PO
[2018-03-10 12:39] VITALS: BP 113/58; PULSE 90; RESP 16; TEMP 98.3; O2SAT 96
[2018-03-10] MEDS ORDERED: SODIUM CHLOR 0.9% 1000 ML INJ 1,000 ML IV ONE (13:15)
[2018-03-10] MEDS ORDERED: methylPREDNISolone SOD SUCC 125 MG/2 ML VIAL IV PUSH ONE (13:15)
[2018-03-10] MEDS: RESP: ALBUTEROL 2.5 MG/IPRATROPIUM 0.5 MG NEB (SCH) INH (13:24)
--- NOTE | 2018-03-10 13:25 | PD ---
HPI Chief Complaint: Respiratory Symptoms Time Seen by Provider: 13:04 Travel History International Travel<30 days: No Contact w/Intl Traveler<30days: No Traveled to known affect area: No History of Present Illness HPI Patient is a 52-year-old female with history of MR as well as seizure, presents the emergency room with her mother for evaluation of possible pneumonia. Mom reports that for the past 6 weeks, patient has a dry nonproductive cough. Reports no fever or chills, reports that nothing is making cough better or worse. Mom also reports concerns as patient was recently hospitalized in November for seizure. Patient denies any chest pain at this time, reports shortness of breath with her cough. PFSH Past Medical History Autoimmune Disease: No Blood Disorders: No Bipolar Disorder: Yes Anxiety: Yes Depression: Yes Cancer: No Cardiovascular Problems: No Chemotherapy: No Cerebrovascular Accident: No Developmental Delay: Yes (PRE TERM SPECIAL ED) Diminished Hearing: No Endocrine: No Gastrointestinal Disorders: No Genitourinary: No Headaches: Yes Immune Disorder: No Musculoskeletal: No Neurologic: Yes Psychiatric: Yes Reproductive: No Respiratory: No Radiation Therapy: No Seizures: Yes ?: Not Past Surgical History Abdominal Surgery: No Cardiac Surgery: No Ear Surgery: No Endocrine Surgery: No Eye Surgery: No Genitourinary Surgery: No Gynecologic Surgery: No Neurologic Surgery: No Oral Surgery: No Thoracic Surgery: No Other Surgery: Yes (T&A AGE 3, HEMANGIOMAS AGE 9 MONTHS) Social History Alcohol Use: No Tobacco Use: No Substance Use: No Allergies-Medications (Allergen,Severity, Reaction): Coded Allergies: No Known Allergies (Verified Adverse Reaction, Unknown, 03/10/18) Reported Meds & Prescriptions Reported Meds & Active Scripts Active Prednisone 20 Mg Tab 20 Mg PO BID 5 Days Proair Hfa 8.5 GM Inh (Albuterol Sulfate) 90 Mcg/Act Aer 2 Puff INH Q4-6H PRN 108 mcg/actuation Azithromycin 500 Mg Tab 500 Mg PO DAILY Seroquel (Quetiapine Fumarate) 25 Mg Tab 25 Mg PO HS Atrovent HFA 12.9 GM Inh (Ipratropium [place]) 17 Mcg/Actuation Aer 2 Puff INH Q6HR PRN Ventolin Hfa 18 GM Inh (Albuterol Sulfate) 90 Mcg/Act Aer 2 Puff INH Q4-6H PRN Ventolin Hfa 18 GM Inh (Albuterol Sulfate) 90 Mcg/Act Aer 2 Puff INH Q4-6H PRN Seroquel (Quetiapine Fumarate) 25 Mg Tab 25 Mg PO BID Reported Trazodone (Trazodone HCl) 100 Mg Tablet 200 Mg PO HS Vitamin B-12 (Cyanocobalamin) 1,000 Mcg Tab 1,000 Mcg PO DAILY Vimpat (Lacosamide) 200 Mg Tab 200 Mg PO BID Trazodone (Trazodone HCl) 50 Mg Tab 50 Mg PO HS Keppra (Levetiracetam) 500 Mg Tab 1,500 Mg HS Keppra (Levetiracetam) 500 Mg Tab 500 Mg BID Prozac (Fluoxetine HCl) 40 Mg Cap 40 Mg PO DAILY Review of Systems General / Constitutional: No: Fever Eyes: No: Visual changes HENT: No: Headaches Cardiovascular: No: Chest Pain or Discomfort Respiratory: Positive: Cough, Shortness of Breath Gastrointestinal: No: Abdominal Pain Genitourinary: No: Dysuria Musculoskeletal: No: Pain Skin: No Rash Neurologic: No: Weakness Psychiatric: No: Depression Endocrine: No: Polydipsia Hematologic/Lymphatic: No: Easy Bruising Physical Exam Narrative GENERAL: NAD SKIN: Focused skin assessment warm/dry. HEAD: Atraumatic. Normocephalic. EYES: Pupils equal and round. No scleral icterus. No injection or drainage. ENT: No nasal bleeding or discharge. Mucous membranes pink and moist. NECK: Trachea midline. No JVD. CARDIOVASCULAR: Regular rate and rhythm. No murmur appreciated. RESPIRATORY: Coarse breath sounds. Clear to auscultation. Breath sounds equal bilaterally. GASTROINTESTINAL: Abdomen soft, non-tender, nondistended. Hepatic and splenic margins not palpable. MUSCULOSKELETAL: No obvious deformities. No clubbing. No cyanosis. No edema. NEUROLOGICAL: Awake and alert. No obvious cranial nerve deficits. Motor grossly within normal limits. Normal speech. PSYCHIATRIC: Appropriate mood and affect; insight and judgment normal. Data Data Last Documented VS Vital Signs Date Time Temp Pulse Resp B/P (MAP) Pulse Ox O2 Delivery O2 Flow Rate FiO2 03/10/18 14:39 77 20 96/56 (69) 94 03/10/18 13:26 21 03/10/18 12:39 98.3 Orders Orders Complete Blood Count With Diff (03/10/18 13:07) Comprehensive Metabolic Panel (03/10/18 13:07) Blood Culture (03/10/18 13:07) Ecg Monitoring (03/10/18 13:07) Iv Access Insert/Monitor (03/10/18 13:07) Oximetry (03/10/18 13:07) Albuterol-Ipratropium Neb (Duoneb Neb) (03/10/18 13:15) Methylprednisolone So Succ Inj (Solumedr (03/10/18 13:15) D-Dimer (03/10/18 13:07) Chest, Pa & Lat (03/10/18 13:07) Sodium Chlor 0.9% 1000 Ml Inj (Ns 1000 M (03/10/18 13:15) Labs Laboratory Tests Test 03/10/18 13:15 White Blood Count 4.8 TH/MM3 Red Blood Count 4.62 MIL/MM3 Hemoglobin 13.0 GM/DL Hematocrit 38.6 % Mean Corpuscular Volume 83.7 FL Mean Corpuscular Hemoglobin 28.1 PG Mean Corpuscular Hemoglobin Concent 33.6 % Red Cell Distribution Width 12.9 % Platelet Count 195 TH/MM3 Mean Platelet Volume 8.4 FL Neutrophils (%) (Auto) 69.1 % Lymphocytes (%) (Auto) 19.4 % Monocytes (%) (Auto) 8.1 % Eosinophils (%) (Auto) 2.3 % Basophils (%) (Auto) 1.1 % Neutrophils # (Auto) 3.3 TH/MM3 Lymphocytes # (Auto) 0.9 TH/MM3 Monocytes # (Auto) 0.4 TH/MM3 Eosinophils # (Auto) 0.1 TH/MM3 Basophils # (Auto) 0.1 TH/MM3 CBC Comment DIFF FINAL Differential Comment D-Dimer Quantitative (PE/DVT) 0.22 MG/L FEU Blood Urea Nitrogen 16 MG/DL Creatinine 0.62 MG/DL Random Glucose 81 MG/DL Total Protein 6.9 GM/DL Albumin 3.6 GM/DL Calcium Level 8.8 MG/DL Alkaline Phosphatase 81 U/L Aspartate Amino Transf (AST/SGOT) 13 U/L Alanine Aminotransferase (ALT/SGPT) 22 U/L Total Bilirubin 0.3 MG/DL Sodium Level 137 MEQ/L Potassium Level 3.9 MEQ/L Chloride Level 104 MEQ/L Carbon Dioxide Level 27.6 MEQ/L Anion Gap 5 MEQ/L Estimat Glomerular Filtration Rate 100 ML/MIN MDM Medical Decision Making Medical Screen Exam Complete: Yes Emergency Medical Condition: Yes Medical Record Reviewed: Yes Interpretation(s) Vital Signs Date Time Temp Pulse Resp B/P (MAP) Pulse Ox O2 Delivery O2 Flow Rate FiO2 03/10/18 12:39 98.3 90 16 113/58 (76) 96 Differential Diagnosis Pneumonia, viral syndrome, pneumothorax, pe Narrative Course During the course of the patients emergency department visit, the patients history, examination, and differential diagnosis were reviewed with the patient. 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 The patient had an IV access obtained and blood work sent for analysis. The patient was initially provided IVF. The patients laboratory studies were reviewed and remarkable for CBC & BMP Diagram 03/10/18 13:15 Total Protein 6.9, Albumin 3.6, Calcium Level 8.8, Alkaline Phosphatase 81, Aspartate Amino Transf (AST/SGOT) 13 L, Alanine Aminotransferase (ALT/SGPT) 22, Total Bilirubin 0.3 Radiology studies were reviewed and remarkable for Last Impressions Chest X-Ray 03/10/18 1307 Signed Impressions: CONCLUSION: No acute intracranial abnormality. cbc: wnl bmp: wnl ddimer: 0.22 All labs and all studies reviewed, patient with most likely bronchitis given her symptoms. Plan to discharge her on antibiotics. Patient will follow-up with her primary care doctor and will return to emergency room as needed. Diagnosis Primary Impression: Bronchitis Patient Instructions: General Instructions Additional Instructions: Please provide patient with a copy of their lab work and studies at discharge* * Please follow up with your primary care doctor in 2-3 days Return to the ER if symptoms worsen or progress Return to the ER as needed Please take all medications as prescribed Please follow up with all cultures from today Med/Other Pt SpecificInfo: Prescription(s) given Scripts Prednisone (Prednisone) 20 Mg Tab 20 MG PO BID for 5 Days, #10 TAB 0 Refills Prov: Brigette Barnhart DO 03/10/18 Albuterol 8.5 GM Inh (Proair Hfa 8.5 GM Inh) 90 Mcg/Act Aer 2 PUFF INH Q4-6H Y for SHORTNESS OF BREATH, #1 INHALER 0 Refills 108 mcg/actuation Prov: Brigette Barnhart DO 03/10/18 Azithromycin (Azithromycin) 500 Mg Tab 500 MG PO DAILY for Infection, #5 TAB 0 Refills Prov: Brigette Barnhart DO 03/10/18 Disposition: 01 DISCHARGE HOME Condition: Stable Brigette Barnhart DO March 10, 2018 13:25
[2018-03-10 13:26] VITALS: O2SAT 96; O2SAT 98
[2018-03-10 13:30] VITALS: BP 110/73; PULSE 71; RESP 20; O2SAT 97
[2018-03-10 13:32] LABS: AUTOMATED NEUTROPHIL # 3.3 TH/MM3 (1.8-7.7); BASOPHIL # 0.1 TH/MM3 (0-0.2); BASOPHIL % 1.1 % (0.0-2.0); EOSINOPHIL # 0.1 TH/MM3 (0-0.4); EOSINOPHIL % 2.3 % (0.0-4.0); HEMATOCRIT 38.6 % (35.0-46.0); LYMPH % 19.4 % (9.0-44.0); LYMPHOCYTE # 0.9 TH/MM3 (1.0-4.8); MEAN CELL VOLUME 83.7 FL (80.0-100.0); MEAN CORPUSCULAR HEMOGLOBIN 28.1 PG (27.0-34.0); MEAN CORPUSCULAR HGB CONC 33.6 % (32.0-36.0); MEAN PLATELET VOLUME 8.4 FL (7.0-11.0); MONO % 8.1 % (0.0-8.0); MONOCYTE # 0.4 TH/MM3 (0-0.9); NEUT % 69.1 % (16.0-70.0); PLATELET COUNT 195 TH/MM3 (150-450); RED BLOOD COUNT 4.62 MIL/MM3 (4.00-5.30); RED CELL DISTRIBUTION WIDTH 12.9 % (11.6-17.2); WHITE BLOOD COUNT 4.8 TH/MM3 (4.0-11.0)
[2018-03-10 13:39] LABS: CHLORIDE 104 MEQ/L (98-107); SODIUM (NA) 137 MEQ/L (136-145)
[2018-03-10 13:42] LABS: CALCIUM 8.8 MG/DL (8.5-10.1)
[2018-03-10 13:43] LABS: ALBUMIN 3.6 GM/DL (3.4-5.0); BICARBONATE 27.6 MEQ/L (21.0-32.0); BLOOD UREA NITROGEN 16 MG/DL (7-18); GLUCOSE,RANDOM 81 MG/DL (74-106)
[2018-03-10 13:46] LABS: ALT (GPT) 22 U/L (10-53); AST (GOT) 13 U/L (15-37); CREATININE 0.62 MG/DL (0.50-1.00); GLOMERULAR FILTRATION RATE 100 ML/MIN (>89)
[2018-03-10 13:48] LABS: TOTAL BILIRUBIN ADULT 0.3 MG/DL (0.2-1.0); TOTAL PROTEIN 6.9 GM/DL (6.4-8.2)
[2018-03-10 13:49] LABS: ALKALINE PHOSPHATASE 81 U/L (45-117)
--- NOTE | 2018-03-10 14:17 | RADRPT ---
EXAM DATE: 03/10/2018 2:12 PM EDT AGE/SEX: 52 years / Female INDICATIONS: Cough and shortness of breath. CLINICAL DATA: This is the patient's initial encounter. Patient reports that signs and symptoms have been present for 2 months and indicates a pain score of 0/10. MEDICAL/SURGICAL HISTORY: None. None. COMPARISON: No prior [facility] exams available for comparison. FINDINGS: PA and lateral views of the chest demonstrate the lungs to be symmetrically aerated without evidence of mass, infiltrate or effusion. The cardiomediastinal contours are unremarkable. Osseous structures are intact. CONCLUSION: No acute intracranial abnormality. Electronically signed by: Conner Best MD 03/10/2018 2:15 PM EDT
[2018-03-10] MEDS ORDERED: PRED20 PO (14:26)
[2018-03-10] MEDS ORDERED: ALBUAER3 INH (14:26)
[2018-03-10] MEDS ORDERED: AZIT500T2 PO (14:26)
[2018-03-10 14:39] VITALS: BP 96/56; PULSE 77; RESP 20; O2SAT 94
[2018-03-10] MEDS ORDERED: AZITHROMYCIN 250 MG TAB PO ONE (14:45)
[2018-03-10 14:47] VITALS: BP 103/56
== END 2018-03-10 14:59 | disposition home or self-care (01) ==
LOC: PHED 12:29
DX: J40 Bronchitis, not specified as acute or chronic (principal); F79 Unspecified intellectual disabilities; F31.9 Bipolar disorder, unspecified; F41.9 Anxiety disorder, unspecified; Z86.69 Personal history of other diseases of the nervous system and sense organs
CPT/HCPCS: 71046; 80053; 85025; 85379; 87040; 94640; 94664; 96361; 96374; 99284; J2930; J7030